=== PATIENT | female | born 1960 | race African-American/Black ===

== ENCOUNTER → 2017-06-30 | Outpatient (CLI) | payer OTHER ==
[2017-04-24 14:35] VITALS: BP 112/66
[~2017-06-30] MED LIST: AMLO10TA4 PO; ASPI325T8 PO; BENZ1LOZ48 MM; CHLO25TA PO; DIPH25CA58 PO; DOCU-109 PO; EZET10TA18 PO; GABA-585 PO; HYDR-2758 PO; LIPITOR80 MG PO; [UNRECOGNIZED DRUG - OTHER] PO
--- NOTE | 2017-06-30 13:12 | RAD ---
DATE: 06/30/2017 EXAM: DIGITAL SCREEN BILAT W/CAD HISTORY: Screening mammogram. 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 COMPARISON: None This study was interpreted with the benefit of Computerized Aided Detection (CAD). FINDINGS: Breast Density: SCATTERED The breast parenchyma shows scattered fibroglandular densities. Breast parenchyma level B. The skin and nipples are within normal limits. No suspicious calcifications,or architectural distortion. There is a round mass in the inner left breast with skin scribe margins measuring approximately 9 mm and approximately 8 cm from nipple best seen on cc view. On MLO view this is likely at 9:00 position. IMPRESSION: . Left breast lesion as described above. This most likely represents intraparenchymal lymph nodes or cyst. However, confirmation with left breast ultrasound is recommended. BI-RADS CATEGORY: 0 INCOMPLETE: NEED ADDITIONAL IMAGING EVAULATION AND/OR PRIOR MAMMOGRAMS FOR COMPARISON RECOMMENDED FOLLOW-UP: ADD ADDITIONAL IMAGING. Ultrasound of the left inner breast. PQRS compliance statement: Mammography is a sensitive method for finding small breast cancers, but it does not detect them all and is not a substitute for careful clinical examination. A negative mammogram does not negate a clinically suspicious finding and should not result in delay in biopsying a clinically suspicious abnormality. "Our facility is accredited by the [employer] Mammography [employer]."
== END | disposition home or self-care (01) ==
LOC: MAMMO 11:21
PROVIDERS: ATTEND Family Medicine
DX: Z12.31 Encounter for screening mammogram for malignant neoplasm of breast (principal)
CPT/HCPCS: G0202; 77067

== ENCOUNTER → 2017-07-06 | Outpatient (CLI) | payer OTHER ==
[2017-04-24 14:35] VITALS: BP 112/66
--- NOTE | 2017-07-06 12:05 | RAD ---
Indication mass seen on screening mammography. Note is made of the screening examination of the left breast 06/30/2017. As result of that examination targeted ultrasound was advised. In the left breast, at the 9:00 position, approximately 8 cm from the nipple is a well-defined 8 mm mass. It probably reflects an intramammary lymph node. Biopsy is not felt warranted at this time. A follow-up left breast mammogram and targeted ultrasound is suggested in 6 months to document stability. IMPRESSION: Probable intramammary lymph node. Follow-up mammography and ultrasound in 6 months advised. BI-RADS 3. Probably benign. Six-month follow-up
== END | disposition home or self-care (01) ==
LOC: US 11:19
PROVIDERS: ATTEND Family Medicine
DX: R92.8 Other abnormal and inconclusive findings on diagnostic imaging of breast (principal)
CPT/HCPCS: 76641

== ENCOUNTER → 2017-12-18 | Outpatient (CLI) | payer OTHER | END | disposition home or self-care (01) | LOC: MAMMO 10:23 | DX: N63.20 Unspecified lump in the left breast, unspecified quadrant (principal) | CPT/HCPCS: 77065 ==

== ENCOUNTER 2017-12-22 10:42 | Emergency (ER) | payer OTHER ==
[2017-12-22] MEDS: HYDROcodone/APAP 5/325MG 1 TAB TABLET PO (11:50)
== END 2017-12-22 13:09 | disposition home or self-care (01) ==
LOC: ER 10:42
DX: M79.671 Pain in right foot (principal); M79.672 Pain in left foot; I10 Essential (primary) hypertension; Z88.0 Allergy status to penicillin; Z86.73 Personal history of transient ischemic attack (TIA), and cerebral infarction without residual deficits
CPT/HCPCS: 73630; 99284

== ENCOUNTER → 2018-10-05 | Outpatient (CLI) | payer OTHER ==
[2017-12-22 12:20] VITALS: BP 149/81
[~2018-10-05] MED LIST changes: -CHLO25TA PO; +CHLO25TA10 PO; -HYDR-2758 PO; +HYDR-2761 PO; +HYDR-3164 PO
--- NOTE | 2018-10-05 10:18 | RAD ---
DATE: 10/05/2018 EXAM: DIGITAL DIAGNOSTIC BILATERAL HISTORY: Follow-up left breast nodule COMPARISON: 12/18/2017, 06/30/2017 This study was interpreted with the benefit of Computerized Aided Detection (CAD). Breast Density: SCATTERED The breast parenchyma shows scattered fibroglandular densities. Breast parenchyma level B. FINDINGS: . The small smooth nodule evident anteromedially in the left breast on the previous studies is less clearly defined on today's exam, but has not enlarged. No new or enlarging breast densities are seen. No suspicious microcalcifications are evident. IMPRESSION: Stable mammograms without evidence of malignancy. Follow-up left mammography in 6 months and bilateral mammography at one year is suggested BI-RADS CATEGORY: 3 PROBABLY BENIGN FINDING(S)-SHORT INTERVAL FOLLOW-UP SUGGESTED RECOMMENDED FOLLOW-UP: 6M 6 MONTH FOLLOW-UP PQRS compliance statement: Patient information was entered into a reminder system with a target due date for the next mammogram. Mammography is a sensitive method for finding small breast cancers, but it does not detect them all and is not a substitute for careful clinical examination. A negative mammogram does not negate a clinically suspicious finding and should not result in delay in biopsying a clinically suspicious abnormality. "Our facility is accredited by the [employer] Mammography [employer]."
== END | disposition home or self-care (01) ==
LOC: MAMMO 09:35
PROVIDERS: ATTEND Family Medicine
DX: N63.42 Unspecified lump in left breast, subareolar (principal)
CPT/HCPCS: 77066

== ENCOUNTER 2021-03-03 10:32 | Inpatient (IN) | payer OTHER ==
[2021-03-03] VITALS (18 sets, daily range): BP systolic 64–114; BP diastolic 38–66
[~2021-03-03] VITALS: Ht 149.9 cm; Wt 62.6 kg
[~2021-03-03 10:32] MED LIST changes: -EZET10TA18 PO; +EZET10TA20 PO
[2021-03-03 10:50] LABS: BASO # 0.1 x10^3/uL (0.0-0.2); BASO % 0 % (0-3); EOS % 0 % (0-3); HEMATOCRIT 23.7 % (36.0-47.0); HEMOGLOBIN 7.7 g/dL (12.0-15.5); LYMPH # 1.7 x10^3/uL (1.0-4.8); LYMPH % 13 % (24-48); MEAN CORPUSCULAR HEMOGLOBIN 28 pg (25-35); MEAN CORPUSCULAR HGB CONC 32 g/dL (31-37); MEAN CORPUSCULAR VOLUME 87 fL (79-100); MONO # 0.4 x10^3/uL (0.0-1.1); MONO % 3 % (0-9); NEUT # 10.7 x10^3/uL (1.8-7.7); NEUT % 83 % (31-73); PLATELET COUNT 547 x10^3/uL (140-400); RED BLOOD COUNT 2.72 x10^6/uL (3.50-5.40); RED CELL DISTRIBUTION WIDTH 16.6 % (11.5-14.5); WHITE BLOOD COUNT 12.9 x10^3/uL (4.0-11.0)
[2021-03-03] MEDS ORDERED: AZTREONAM IV Push 2 GM VIAL. IVP ONE (11:00)
[2021-03-03] MEDS ORDERED: ROCURONIUM 100 MG/10 ML VIAL. IV ONE (11:00)
[2021-03-03] MEDS ORDERED: ETOMIDATE 20 MG/10 ML VIAL. IV ONE (11:00)
[2021-03-03] MEDS ORDERED: IV NORMAL SALINE 1000ML BAG 1,000 ML IV SCH (11:00)
[2021-03-03 11:02] LABS: CALCIUM 8.3 mg/dL (8.5-10.1); CREATININE 4.7 mg/dL (0.6-1.0); GFR 11.4; POTASSIUM 4.9 mmol/L (3.5-5.1)
--- NOTE | 2021-03-03 11:03 | PHYS DOC ---
Past Medical History Past Medical History: CVA, Other Additional Past Medical Histor: CVA'S X 6/NO RESIDUAL PER FAMILY REPORT Past Surgical History: No Surgical History Smoking Status: Former Smoker Alcohol Use: None Drug Use: None General Adult EDM: Chief Complaint: SHORTNESS OF BREATH HPI: HPI: 61 yo F presents to the ed bibems from [facility] [place], [place] with concern for shortness of breath, per EMS report patient was hypoxic saturating 70%. Patient placed on BiPAP and transferred to the ED. Hx was obtained from correction documents that showed patient has history of CVA (unknown baseline mental functioning status), hypertension, hyperlipidemia, neuromuscular dysfunction of bladder with indwelling Uriostegui catheter, obesity and nicotine dependence. Patient is a full code. Patient no known drug allergies. Patient on Plavix but no other anticoagulants. Unknown covid status. Review of Systems: Review of Systems: ROS unobtainable 2/2 mental status Heart Score: C/O Chest Pain: N/A Risk Factors: Risk Factors: DM, Current or recent (<one month) smoker, HTN, HLP, family history of CAD, obesity. Risk Scores: Score 0 - 3: 2.5% MACE over next 6 weeks - Discharge Home Score 4 - 6: 20.3% MACE over next 6 weeks - Admit for Clinical Observation Score 7 - 10: 72.7% MACE over next 6 weeks - Early Invasive Strategies Current Medications: Current Medications Medications (Trade) Dose Ordered Sig/Trevin Start Time Stop Time Status Last Admin Dose Admin Aztreonam (Azactam) 2 gm 1X ONCE 03/03/21 11:00 03/03/21 11:01 Etomidate (Amidate) 20 mg 1X ONCE 03/03/21 11:00 03/03/21 11:01 Metronidazole 100 ml @ 100 mls/hr 1X ONCE 03/03/21 11:00 03/03/21 11:59 Rocuronium Stacy (Zemuron) 100 mg 1X ONCE 03/03/21 11:00 03/03/21 11:01 Sodium Chloride 1,000 ml @ 1,000 mls/hr Q1H 03/03/21 11:00 03/03/21 11:59 Vancomycin HCl (Vanco Per Pharmacy) 1 each PRN DAILY PRN 03/03/21 10:45 Allergies: Allergies: Allergies Coded Allergies Type Severity Reaction Last Updated Verified Penicillins Allergy Intermediate RASH 03/03/21 Yes Physical Exam: PE: Constitutional: unkept appearance, afebrile HENT: Normocephalic, atraumatic, dry mucous membranes Eyes: EOMI, conjunctiva normal, no discharge. Neck: Normal range of motion, supple, Cardiovascular: S1/2 present, regular rhythm Lungs & Thorax: bilateral equal chest rise, no tachypnea or increased work of breathing Abdomen: soft, no tenderness, Skin: Warm, dry, no erythema, no rash. [] Extremities: No tenderness, no cyanosis, suspect UE contractures Neurologic: E 4 M 1 V 2 = GCS 7, no focal deficits noted-no appreciable facial droop, does not follow commands Current Patient Data: Labs: Laboratory Tests Test 03/03/21 10:40 White Blood Count 12.9 x10^3/uL (4.0-11.0) H Red Blood Count 2.72 x10^6/uL (3.50-5.40) L Hemoglobin 7.7 g/dL (12.0-15.5) L Hematocrit 23.7 % (36.0-47.0) L Mean Corpuscular Volume 87 fL (79-100) Mean Corpuscular Hemoglobin 28 pg (25-35) Mean Corpuscular Hemoglobin Concent 32 g/dL (31-37) Red Cell Distribution Width 16.6 % (11.5-14.5) H Platelet Count 547 x10^3/uL (140-400) H Neutrophils (%) (Auto) 83 % (31-73) H Lymphocytes (%) (Auto) 13 % (24-48) L Monocytes (%) (Auto) 3 % (0-9) Eosinophils (%) (Auto) 0 % (0-3) Basophils (%) (Auto) 0 % (0-3) Neutrophils # (Auto) 10.7 x10^3/uL (1.8-7.7) H Lymphocytes # (Auto) 1.7 x10^3/uL (1.0-4.8) Monocytes # (Auto) 0.4 x10^3/uL (0.0-1.1) Eosinophils # (Auto) 0.0 x10^3/uL (0.0-0.7) Basophils # (Auto) 0.1 x10^3/uL (0.0-0.2) Laboratory Tests 03/03/21 10:40 EKG: EKG: Sinus tachycardia 120 bpm, no axis deviation, QTC 471, no ST elevations, ST segment depressions V3 through V6 Radiology/Procedures: Radiology/Procedures: Indication: Respiratory failure Consent: Unable to give consent due to emergent nature. Medications Used: see nursing note Procedure: The patient was placed in the appropriate position. Intubation was performed via video laryngoscopy with glide scope, MAC 4 blade, 7 5 endotracheal tube. ET tube secured with RT device. Initial confirmation of placement included adequate colorimetry, bilateral breath sounds, tube fogging, adequate c hest rise, adequate pulse oximetry reading. A chest x-ray to verify correct placement of the tube showed appropriate tube position. The patient tolerated the procedure well. Complications: none. IMAGING REPORT Signed PATIENT: ARANZA TERESA ACCOUNT: [id number] : 1960 LOCATION: ER AGE: 61 SEX: F EXAM STATUS: REG ER ORD. PHYSICIAN: AISHA LERNER DO REASON: soa, POST INTUBATION PROCEDURE: CHEST AP ONLY EXAM: Chest, single view. HISTORY: Intubation. COMPARISON: None. FINDINGS: A frontal view of the chest obtained. There is an endotracheal tube within the mid trachea. There is a nasogastric tube within the proximal stomach with the side-port at the gastroesophageal junction or within the distal esophagus. There is a right PICC with the tip in the superior cavoatrial junction. There is suspected right lower lobe predominant interstitial infiltrate. No pleural effusion or pneumothorax is seen. The heart is normal in size. IMPRESSION: 1. Endotracheal tube and right PICC in expected position. There is a nasogastric tube within the proximal stomach with the side-port at the gastroesophageal junction or within the distal esophagus. Slight nasogastric tube advancement may be indicated. 2. Suspected right lower lobe predominant interstitial infiltrate. Electronically signed by: Eugenia Oquendo MD (03/03/2021 11:30 AM) [facility] DICTATED and SIGNED BY: EUGENIA OQUENDO MD DATE: 03/03/21 [id number] IMAGING REPORT Signed PATIENT: ARANZA TERESA ACCOUNT: [id number] : 1960 LOCATION: [address] [place] [address] AGE: 61 SEX: F EXAM STATUS: ADM IN ORD. PHYSICIAN: AISHA LERNER DO REASON: ams, gcs 13 per ems? PROCEDURE: CT HEAD WO CONTRAST EXAM: Head CT without contrast. HISTORY: Altered mental status. TECHNIQUE: Computed tomographic images of the head were obtained without contrast. *One or more of the following individualized dose reduction techniques were utilized for this examination: 1. Automated exposure control. 2. Adjustment of the mA and/or kV according to patient size. 3. Use of iterative reconstruction technique. COMPARISON: 04/16/2017. FINDINGS: There is no acute or subacute extra-axial or intraparenchymal hemorrhage. There is no mass effect or midline shift. There is no hydrocephalus. There are extensive areas of hypodensity throughout the cerebral white matter, most commonly due to chronic small vessel disease. This is advanced for patient age. There are multiple chronic appearing lacunar infarcts within the left gr eater than right basal ganglia and lateral thalami. There is cerebral volume loss. The visualized portions of the orbits, paranasal sinuses and mastoid air cells are unremarkable. No suspicious calvarial lesion is seen. IMPRESSION: 1. Extensive white matter changes, most commonly due to chronic small vessel disease. This is advanced for patient age. There is also cerebral volume loss which is advanced for patient age. 2. Chronic infarcts within the bilateral basal ganglia and thalami. 3. Note is made that MRI is more sensitive for acute infarction. Electronically signed by: Eugenia Oquendo MD (03/03/2021 1:02 PM) [facility] DICTATED and SIGNED BY: EUGENIA OQUENDO MD DATE: 03/03/21 [id number] 0 Course & Med Decision Making: Course & Med Decision Making Pertinent Labs and Imaging studies reviewed. (See chart for details) COVID-19 CRITERIA: The patient was evaluated during the global COVID-19 zahida suzy, and that diagnosis was suspected/considered upon their initial presentation. Their evaluation, treatment and testing was consistent with current guidelines for patients who present with complaints or symptoms that may be related to COVID-19. Concern for acute hypoxic respiratory failure, Covid test pending. Patient with sepsis 2/2 pnuemonia w/multiple organ failure including transaminitis, acute kidney injury and NSTEMI. Patient also with normocytic anemia compared to 2017. Patient was intubated upon ED arrival-unknown baseline mental status. Will admit to ICU with cardiology, pulmonology and nephrology consults. Patient accepted by Dr. Wallace. Critical Care: Authorized and Performed by: Aisha Lerner DO Total critical care time: approximately 60 minutes Due to a high probability of clinically significant, life threatening deterioration, the patient required my highest level of preparedness to intervene emergently and I personally spent this critical care time directly and personally managing the patient. This critical care time included obtaining a history; examining the patient; pulse oximetry; ventilator management if necessary; ordering and review of studies; arranging urgent treatment with development of a management plan; evaluation of patient's response to treatment; frequent reassessment; discussion with patient/family; and, discussions with ot her providers. This critical care time was performed to assess and manage the high probability of imminent, life-threatening deterioration that could result in multi-organ failure. It was exclusive of separately billable procedures and treating other patients and teaching time. Please see MDM section and the rest of the note for further information on patient assessment and treatment. Dragon Disclaimer: Dragon Disclaimer: This electronic medical record was generated, in whole or in part, using a voice recognition dictation system. Departure Departure Impression: Primary Impression: Acute respiratory failure with hypoxia Additional Impressions: Person under investigation for COVID-19 Multiorgan failure Rhabdomyolysis Sepsis Pneumonia Disposition: ADMITTED INPATIENT Admitting Physician: JENS (Dr. Wallace) Condition: CRITICAL Referrals: GARCIA PARISH MD (PCP) AISHA LERNER DO Mar 03, 2021 11:03
[2021-03-03 11:07] LABS: ACETAMIN < 2 mcg/ml (10-30); SALIC < 2.8 mg/dL (2.8-20.0)
[2021-03-03 11:19] LABS: BASE EXCESS COOX -11 mmol/L (-3-3); HCO3 COOX 15 mmol/L (21-28); METHEMOGLOBIN 0.9 % (0.0-1.9); OXYHEMOGLOBIN 98.3 %; PCO2 COOX 33 mmHg (35-46); PO2 COOX 249 mmHg (65-108); SAT O2 COOX 100 % (92-99)
[2021-03-03 11:20] LABS: ALBUMIN 1.6 g/dL (3.4-5.0); DIRECT BILIRUBIN 0.4 mg/dL (0.0-0.2); TOTAL BILIRUBIN 0.7 mg/dL (0.2-1.0); TOTAL PROTEIN 6.4 g/dL (6.4-8.2)
[2021-03-03] MEDS ORDERED: IV NORMAL SALINE 1000ML BAG 1,000 ML IV ONE ×2 (11:30)
--- NOTE | 2021-03-03 11:33 | RAD ---
EXAM: Chest, single view. HISTORY: Intubation. COMPARISON: None. FINDINGS: A frontal view of the chest obtained. There is an endotracheal tube within the mid trachea. There is a nasogastric tube within the proximal stomach with the side-port at the gastroesophageal j unction or within the distal esophagus. There is a right PICC with the tip in the superior cavoatrial junction. There is suspected right lower lobe predominant interstitial infiltrate. No pleural effusi on or pneumothorax is seen. The heart is normal in size. IMPRESSION: 1. Endotracheal tube and right PICC in expected position. There is a nasogastric tube within the prox imal stomach with the side-port at the gastroesophageal junction or within the distal esophagus. Slig ht nasogastric tube advancement may be indicated. 2. Suspected right lower lobe predominant interstitial infiltrate. Electronically signed by: Eugenia Webster MD (03/03/2021 11:30 AM) [facility]
--- NOTE | 2021-03-03 11:45 | PDOC1 ---
History and Physical Date of Admission Date of Admission DATE: 03/03/21 TIME: 11:45 Identification/Chief Complaint Chief Complaint soa, pneumonia, cough, confused History of Present Illness History of Present Illness 61 -year-old -[place] woman with past medical history of hypertension, CVA and right-sided weakness, who presented to the Emergency Room HX Cerebrovascular accident with residual spastic right hemiparesis required vent support in ER, unable to maintain airway , labs c/w multiorgan failure, sepsis Suspected right lower lobe predominant interstitial infiltrate. suspect aspiration pneumonia, gram neg, gram pos //under investigation for COVID-19 Multiorgan failure due to sepsis Rhabdomyolysis LATHA, due to sepsis Altered mental status , UNABLE to maintain airway // right hemiparesis // prob pyelonephritis with acute renal tube nephro-necrosis ct head Extensive white matter changes, chronic small vessel disease.advanced for patient age. cerebral volume loss advanced for patient age. Chronic infarcts within the bilateral basal ganglia and thalami. Suspected right lower lobe predominant interstitial infiltrate. suspect aspiration pneumonia, gram neg, gram pos // Person under investigation for COVID-19 plan== icu bed //pulm consult / vent support/ Nephrology consult //ID CONSULT /emperic iv antibiotics / FE PANEL //Neurology consult // DVT PROPHYLAXIS Past Medical History Past Medical History Past Medical History Past Medical History: CVA, Other Additional Past Medical Histor: CVA'S X 6/NO RESIDUAL PER FAMILY REPORT Past Surgical History: No Surgical History Smoking Status: Former Smoker Alcohol Use: None Drug Use: None FHX OBESITY Cardiovascular: HTN, Hyperlipidemia CENTRAL NERVOUS SYSTEM: CVA Psych: Other Musculoskeletal: Osteoarthritis Endocrine: No pertinent hx Past Surgical History Past Surgical History: No pertinent history Family History Family History: Heart Disease, High Cholestrol, Hypertension Social History Smoke: No ALCOHOL: none Drugs: Cocaine Current Problem List Problem List Problems Medical Problems: (1) Acute respiratory failure with hypoxia Status: Acute (2) Multiorgan failure Status: Acute (3) Person under investigation for COVID-19 Status: Acute (4) Rhabdomyolysis Status: Acute Current Medications Current Medications Current Medications Sodium Chloride 1,000 ml @ 1,000 mls/hr Q1H IV ; Start 03/03/21 at 11:00; Stop 03/03/21 at 11:59 Aztreonam (Azactam) 2 gm 1X ONCE IVP ; Start 03/03/21 at 11:00; Stop 03/03/21 at 11:01; Status DC Metronidazole 100 ml @ 100 mls/hr 1X ONCE IV ; Start 03/03/21 at 11:00; Stop 03/03/21 at 11:59 Vancomycin HCl (Vanco Per Pharmacy) 1 each PRN DAILY PRN MC SEE COMMENTS; Start 03/03/21 at 10:45 Etomidate (Amidate) 20 mg 1X ONCE IV ; Start 03/03/21 at 11:00; Stop 03/03/21 at 11:01; Status DC Rocuronium [place] (Zemuron) 100 mg 1X ONCE IV ; Start 03/03/21 at 11:00; Stop 03/03/21 at 11:01; Status DC Sodium Chloride 1,000 ml @ 1,000 mls/hr 1X ONCE IV ; Start 03/03/21 at 11:30; Stop 03/03/21 at 12:29 Sodium Chloride 1,000 ml @ 1,000 mls/hr 1X ONCE IV ; Start 03/03/21 at 11:30; Stop 03/03/21 at 12:29 Active Scripts Active [place] 5-325 Tablet (Acetaminophen/Hydrocodone Bitart) 1 Each Tablet 1 Tab PO BID 5 Days Hydrocodone-Apap 5-325 (Hydrocodone Bit/Acetaminophen) 1 Each Tablet 1 Tab PO PRN Q6HRS PRN Reported [Prinivil,Zestril] 40 Mg PO DAILY Gabapentin 100 Mg Capsule 100 Mg PO Q8HRS Zetia (Ezetimibe) 10 Mg Tablet 1 Tab PO DAILY Colace (Docusate Sodium) 100 Mg Capsule 1 Cap PO BID Benadryl (Diphenhydramine Hcl) 25 Mg Capsule 25 Mg PO Q6HRS PRN Chlorthalidone 25 Mg Tablet 1 Tab PO DAILY Cepacol Sore Throat Lozenge (Benzocaine/Menthol) 1 Each Lozenge 1 Each MM TID PRN Lipitor (Atorvastatin Calcium) 80 Mg Tablet 1 Tab PO DAILY Aspirin 325 Mg Tablet 1 Tab PO DAILY Norvasc (Amlodipine Besylate) 10 Mg Tablet 10 Mg PO DAILY Allergies Allergies: Coded Allergies: Penicillins (Verified Allergy, Intermediate, RASH, 03/03/21) ROS Review of System INTUBATED ON SEDATION General: YES: Fatigue Physical Exam Physical Exam right hand contracted General: Cooperative HEENT: Atraumatic, Mucous membr. moist/pink Lungs: Clear to auscultation Heart: RRR, no thrills Breasts: Not examined Abdomen: Normal bowel sounds, Soft, No tenderness, No hepatosplenomegaly Rectal Exam: not examined PELVIC: Examination not indicated Extremities: No cyanosis Vitals Vitals Vital Signs Date Time Temp Pulse Resp B/P (MAP) Pulse Ox O2 Delivery O2 Flow Rate FiO2 03/03/21 11:18 Ventilator Labs Labs Laboratory Tests Test 03/03/21 10:40 03/03/21 11:10 White Blood Count 12.9 x10^3/uL (4.0-11.0) Red Blood Count 2.72 x10^6/uL (3.50-5.40) Hemoglobin 7.7 g/dL (12.0-15.5) Hematocrit 23.7 % (36.0-47.0) Mean Corpuscular Volume 87 fL (79-100) Mean Corpuscular Hemoglobin 28 pg (25-35) Mean Corpuscular Hemoglobin Concent 32 g/dL (31-37) Red Cell Distribution Width 16.6 % (11.5-14.5) Platelet Count 547 x10^3/uL (140-400) Neutrophils (%) (Auto) 83 % (31-73) Lymphocytes (%) (Auto) 13 % (24-48) Monocytes (%) (Auto) 3 % (0-9) Eosinophils (%) (Auto) 0 % (0-3) Basophils (%) (Auto) 0 % (0-3) Neutrophils # (Auto) 10.7 x10^3/uL (1.8-7.7) Lymphocytes # (Auto) 1.7 x10^3/uL (1.0-4.8) Monocytes # (Auto) 0.4 x10^3/uL (0.0-1.1) Eosinophils # (Auto) 0.0 x10^3/uL (0.0-0.7) Basophils # (Auto) 0.1 x10^3/uL (0.0-0.2) Sodium Level 135 mmol/L (136-145) Potassium Level 4.9 mmol/L (3.5-5.1) Chloride Level 95 mmol/L (98-107) Carbon Dioxide Level 16 mmol/L (21-32) Anion Gap 24 (6-14) Blood Urea Nitrogen 116 mg/dL (7-20) Creatinine 4.7 mg/dL (0.6-1.0) Estimated GFR (Cockcroft-Gault) 11.4 Glucose Level 271 mg/dL (70-99) Lactic Acid Level 3.9 mmol/L (0.4-2.0) Calcium Level 8.3 mg/dL (8.5-10.1) Total Bilirubin 0.7 mg/dL (0.2-1.0) Direct Bilirubin 0.4 mg/dL (0.0-0.2) Aspartate Amino Transf (AST/SGOT) 204 U/L (15-37) Alanine Aminotransferase (ALT/SGPT) 159 U/L (14-59) Alkaline Phosphatase 99 U/L (46-116) Creatine Kinase 3340 U/L (26-192) Troponin I Quantitative 0.081 ng/mL (0.000-0.055) CM-Tem-Z-Type Natriuretic Peptide 587 pg/mL (0-124) Total Protein 6.4 g/dL (6.4-8.2) Albumin 1.6 g/dL (3.4-5.0) Salicylates Level < 2.8 mg/dL (2.8-20.0) Salicylate Last Dose Date Unknown Salicylate Last Dose Time Unknown Acetaminophen Level < 2 mcg/ml (10-30) Acetaminophen Last Dose Date Unknown Acetaminophen Last Dose Time Unknown O2 Saturation 100 % (92-99) Arterial Blood pH 7.27 (7.35-7.45) Arterial Blood pCO2 at Patient Temp 33 mmHg (35-46) Arterial Blood pO2 at Patient Temp 249 mmHg (65-108) Arterial Blood HCO3 15 mmol/L (21-28) Arterial Blood Base Excess -11 mmol/L (-3-3) Oxyhemoglobin 98.3 % Methemoglobin 0.9 % (0.0-1.9) Carbon Monoxide, Quantitative 0.3 % (0.0-1.9) FiO2 100 Laboratory Tests Test 03/03/21 10:40 03/03/21 11:10 White Blood Count 12.9 x10^3/uL (4.0-11.0) Red Blood Count 2.72 x10^6/uL (3.50-5.40) Hemoglobin 7.7 g/dL (12.0-15.5) Hematocrit 23.7 % (36.0-47.0) Mean Corpuscular Volume 87 fL (79-100) Mean Corpuscular Hemoglobin 28 pg (25-35) Mean Corpuscular Hemoglobin Concent 32 g/dL (31-37) Red Cell Distribution Width 16.6 % (11.5-14.5) Platelet Count 547 x10^3/uL (140-400) Neutrophils (%) (Auto) 83 % (31-73) Lymphocytes (%) (Auto) 13 % (24-48) Monocytes (%) (Auto) 3 % (0-9) Eosinophils (%) (Auto) 0 % (0-3) Basophils (%) (Auto) 0 % (0-3) Neutrophils # (Auto) 10.7 x10^3/uL (1.8-7.7) Lymphocytes # (Auto) 1.7 x10^3/uL (1.0-4.8) Monocytes # (Auto) 0.4 x10^3/uL (0.0-1.1) Eosinophils # (Auto) 0.0 x10^3/uL (0.0-0.7) Basophils # (Auto) 0.1 x10^3/uL (0.0-0.2) Sodium Level 135 mmol/L (136-145) Potassium Level 4.9 mmol/L (3.5-5.1) Chloride Level 95 mmol/L (98-107) Carbon Dioxide Level 16 mmol/L (21-32) Anion Gap 24 (6-14) Blood Urea Nitrogen 116 mg/dL (7-20) Creatinine 4.7 mg/dL (0.6-1.0) Estimated GFR (Cockcroft-Gault) 11.4 Glucose Level 271 mg/dL (70-99) Lactic Acid Level 3.9 mmol/L (0.4-2.0) Calcium Level 8.3 mg/dL (8.5-10.1) Total Bilirubin 0.7 mg/dL (0.2-1.0) Direct Bilirubin 0.4 mg/dL (0.0-0.2) Aspartate Amino Transf (AST/SGOT) 204 U/L (15-37) Alanine Aminotransferase (ALT/SGPT) 159 U/L (14-59) Alkaline Phosphatase 99 U/L (46-116) Creatine Kinase 3340 U/L (26-192) Troponin I Quantitative 0.081 ng/mL (0.000-0.055) DC-Sim-I-Type Natriuretic Peptide 587 pg/mL (0-124) Total Protein 6.4 g/dL (6.4-8.2) Albumin 1.6 g/dL (3.4-5.0) Salicylates Level < 2.8 mg/dL (2.8-20.0) Salicylate Last Dose Date Unknown Salicylate Last Dose Time Unknown Acetaminophen Level < 2 mcg/ml (10-30) Acetaminophen Last Dose Date Unknown Acetaminophen Last Dose Time Unknown O2 Saturation 100 % (92-99) Arterial Blood pH 7.27 (7.35-7.45) Arterial Blood pCO2 at Patient Temp 33 mmHg (35-46) Arterial Blood pO2 at Patient Temp 249 mmHg (65-108) Arterial Blood HCO3 15 mmol/L (21-28) Arterial Blood Base Excess -11 mmol/L (-3-3) Oxyhemoglobin 98.3 % Methemoglobin 0.9 % (0.0-1.9) Carbon Monoxide, Quantitative 0.3 % (0.0-1.9) FiO2 100 Images Images EXAM: Head CT without contrast. HISTORY: Altered mental status. TECHNIQUE: Computed tomographic images of the head were obtained without contrast. *One or more of the following individualized dose reduction techniques were utilized for this examination: 1. Automated exposure control. 2. Adjustment of the mA and/or kV according to patient size. 3. Use of iterative reconstruction technique. COMPARISON: 04/16/2017. FINDINGS: There is no acute or subacute extra-axial or intraparenchymal hemorrhage. There is no mass effect or midline shift. There is no hydrocephalus. There are extensive areas of hypodensity throughout the cerebral white matter, most commonly due to chronic small vessel disease. This is advanced for patient age. There are multiple chronic appearing lacunar infarcts within the left greater than right basal ganglia and lateral thalami. There is cerebral volume loss. The visualized portions of the orbits, paranasal sinuses and mastoid air cells are unremarkable. No suspicious calvarial lesion is seen. IMPRESSION: 1. Extensive white matter changes, most commonly due to chronic small vessel disease. This is advanced for patient age. There is also cerebral volume loss which is advanced for patient age. 2. Chronic infarcts within the bilateral basal ganglia and thalami. 3. Note is made that MRI is more sensitive for acute infarction. Electronically signed by: Eugenia Oquendo MD (03/03/2021 1:02 PM) [facility] DICTATED and SIGNED BY: EUGENIA OQUENDO MD DATE: 03/03/21 [id number] 0Signed PATIENT: ARANZA TERESA ACCOUNT: [id number] : 1960 LOCATION: ER AGE: 61 SEX: F EXAM STATUS: REG ER ORD. PHYSICIAN: NIA LERNER DO REASON: soa, POST INTUBATION PROCEDURE: CHEST AP ONLY EXAM: Chest, single view. HISTORY: Intubation. COMPARISON: None. FINDINGS: A frontal view of the chest obtained. There is an endotracheal tube within the mid trachea. There is a nasogastric tube within the proximal stomach with the side-port at the gastroesophageal junction or within the distal esophagus. There is a right PICC with the tip in the superior cavoatrial juncti on. There is suspected right lower lobe predominant interstitial infiltrate. No pleural effusion or pneumothorax is seen. The heart is normal in size. IMPRESSION: 1. Endotracheal tube and right PICC in expected position. There is a nasogastric tube within the proximal stomach with the side-port at the gastroesophageal junction or within the distal esophagus. Slight nasogastric tube advancement may be indicated. 2. Suspected right lower lobe predominant interstitial infiltrate. Electronically signed by: Eugenia Oquendo MD (03/03/2021 11:30 AM) [facility] DICTATED and SIGNED BY: EUGENIA OQUENDO MD DATE: 03/03/21 [id number] VTE Prophylaxis Ordered VTE Prophylaxis Devices: Contraindicated VTE Pharmacological Prophylaxi: Yes Assessment/Plan Assessment/Plan Impression: Acute respiratory failure with hypoxia requiring vent support Suspected right lower lobe predominant interstitial infiltrate. suspect aspiration pneumonia, gram neg, gram pos Person under investigation for COVID-19 Multiorgan failure Rhabdomyolysis CPK 3340 LATHA prob pyelonephritis with acute renal tube nephro-necrosis Altered mental status Extensive white matter changes, most commonly due to chronic small vessel disease. This is advanced for patient age. There is also cerebral volume loss which is advanced for patient age.Chronic infarcts within the bilateral basal ganglia and thalami. LACTIC ACIDOSIS SEPSIS prob pyelonephritis with acute renal tube nephro-necrosis / ATN NORMOCYTIC ANEMIA marked change since 2016 plan ADMITTED icu bed pulm consult vent support Nephrology consult ID CONSULT emperic iv antibiotics FE PANEL Neurology consult DVT PROPHYLAXIS GI prophylaxis GI CONSULT guiac stools critically ill, poor prognosis 45 min cc time Justifications for Admission Other Justification AVILA FERRIS MD Mar 03, 2021 11:45
[2021-03-03] MEDS ORDERED: PROPOFOL 100 ML IV PRN (12:00)
[2021-03-03] MEDS ORDERED: MIDAZOLAM 100mg/100ml NS BAG 100 ML IV PRN (12:00)
[2021-03-03] MEDS ORDERED: VANCOMYCIN 1.75 GM in IV NORMAL SALINE 500ML BAG 500 ML IV ONE (12:30)
--- NOTE | 2021-03-03 13:04 | RAD ---
EXAM: Head CT without contrast. HISTORY: Altered mental status. TECHNIQUE: Computed tomographic images of the head were obtained without contrast. *One or more of the following individualized dose reduction techniques were utilized for this examina tion: 1. Automated exposure control. 2. Adjustment of the mA and/or kV according to patient size. 3. Use of iterative reconstruction technique. COMPARISON: 04/16/2017. FINDINGS: There is no acute or subacute extra-axial or intraparenchymal hemorrhage. There is no mass effect or midline shift. There is no hydrocephalus. There are extensive areas of hypodensity throughout the cerebral white matter, most commonly due to c hronic small vessel disease. This is advanced for patient age. There are multiple chronic appearing l acunar infarcts within the left greater than right basal ganglia and lateral thalami. There is cerebr al volume loss. The visualized portions of the orbits, paranasal sinuses and mastoid air cells are unremarkable. No s uspicious calvarial lesion is seen. IMPRESSION: 1. Extensive white matter changes, most commonly due to chronic small vessel disease. This is advance d for patient age. There is also cerebral volume loss which is advanced for patient age. 2. Chronic infarcts within the bilateral basal ganglia and thalami. 3. Note is made that MRI is more sensitive for acute infarction. Electronically signed by: Eugenia Webster MD (03/03/2021 1:02 PM) [facility]
[2021-03-03] MEDS ORDERED: ROCURONIUM 50 MG/5 ML VIAL. ONE (13:26)
[2021-03-03 13:42] LABS: BILIRUBIN,URINE NEGATIVE (NEG); CLARITY,URINE TURBID; COLOR,URINE YELLOW; NITRITE,URINE NEGATIVE (NEG); PROTEIN,URINE 30 mg/dL (NEG-TRACE); UROBILINOGEN,URINE 0.2 mg/dL (0.2 mg/dL)
[2021-03-03] MEDS ORDERED: HYOS0.12 PO (13:51)
[2021-03-03 13:53] LABS: AMORPHOUS SEDIMENT,UR PRESENT /HPF; BACTERIA,URINE MANY /HPF (0-FEW); RBC,URINE >40 /HPF (0-2); WBC,URINE TNTC /HPF (0-4)
[2021-03-03 13:55] LABS: HYALINE CASTS, URINE MANY /HPF
[2021-03-03] MEDS ORDERED: ASPI-630 PO (14:13)
[2021-03-03] MEDS ORDERED: BACL10TA PO (14:13)
[2021-03-03] MEDS ORDERED: OMEP20CA16 PO (14:13)
[2021-03-03] MEDS ORDERED: ITRA100C PO (14:13)
[2021-03-03] MEDS ORDERED: CLOP75TA PO (14:13)
[2021-03-03] MEDS ORDERED: POLY17PO29 PO (14:13)
[2021-03-03] MEDS ORDERED: LISI-130 PO (14:13)
[2021-03-03] MEDS ORDERED: GENT30OI2 TP (14:13)
[2021-03-03] MEDS ORDERED: FERR325T14 PO (14:13)
[2021-03-03] MEDS ORDERED: GABA300C18 PO (14:13)
[2021-03-03] MEDS ORDERED: ONDANSETRON PF 4 MG/2 ML VIAL. IVP PRN (14:30)
[2021-03-03] MEDS ORDERED: 0.9 % SODIUM CHLORIDE 10 ML DISP.SYRIN. IV PRN (14:30)
[2021-03-03] MEDS ORDERED: BISACODYL 10 MG SUPP.RECT. PR PRN (14:30)
--- NOTE | 2021-03-03 14:37 | PDOC2 ---
NEUROLOGY CONSULT Date of Service DOS: DATE: 03/03/21 TIME: 14:29 Reason for Consult Reason for Consult: Altered mental status Referring Physician Referring Physician: Dr. 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 I last saw her 4 years ago at which time we ruled her out for a new stroke. She has been in the snf for the last several years. She presented to the emergency room unable to maintain airway. Labs are consistent with multiorgan failure and sepsis and she is found to have a right lower lobe infiltrate. No one has mentioned any seizure activity. She is a full code. She is on tube feedings Past Medical History Cardiovascular: HTN, Hyperlipidemia CENTRAL NERVOUS SYSTEM: CVA Renal/: Urinary Incontinence Past Surgical History Past Surgical History: Other (PEG) Family History Family History: No pertinent hx Social History Social History [facility] resident Current Medications Current Medications Current Medications Sodium Chloride 1,000 ml @ 1,000 mls/hr Q1H IV Last administered on 03/03/21at 12:17; Start 03/03/21 at 11:00; Stop 03/03/21 at 11:59; Status DC Aztreonam (Azactam) 2 gm 1X ONCE IVP Last administered on 03/03/21at 12:17; Start 03/03/21 at 11:00; Stop 03/03/21 at 11:01; Status DC Metronidazole 100 ml @ 100 mls/hr 1X ONCE IV Last administered on 03/03/21at 12:17; Start 03/03/21 at 11:00; Stop 03/03/21 at 11:59; Status DC Vancomycin HCl (Vanco Per Pharmacy) 1 each PRN DAILY PRN MC SEE COMMENTS; Start 03/03/21 at 10:45 Etomidate (Amidate) 20 mg 1X ONCE IV ; Start 03/03/21 at 11:00; Stop 03/03/21 at 11:01; Status DC Rocuronium [place] (Zemuron) 100 mg 1X ONCE IV ; Start 03/03/21 at 11:00; Stop 03/03/21 at 11:01; Status DC Sodium Chloride 1,000 ml @ 1,000 mls/hr 1X ONCE IV ; Start 03/03/21 at 11:30; Stop 03/03/21 at 12:29; Status DC Sodium Chloride 1,000 ml @ 1,000 mls/hr 1X ONCE IV Last administered on 03/03/21at 13:00; Start 03/03/21 at 11:30; Stop 03/03/21 at 12:29; Status DC Vancomycin HCl 1.75 gm/Sodium Chloride 500 ml @ 250 mls/hr 1X ONCE IV Last administered on 03/03/21at 13:41; Start 03/03/21 at 12:30; Stop 03/03/21 at 14:29; Status DC Aztreonam (Azactam) 1 gm Q8HRS IVP ; Start 03/03/21 at 22:00 Rocuronium [place] (Zemuron) 50 mg STK-MED ONCE .ROUTE ; Start 03/03/21 at 13:26; Stop 03/03/21 at 13:26; Status DC Fentanyl Citrate 30 ml @ 0 mls/hr CONT PRN IV SEE PROTOCOL Last administered on 03/03/21at 13:49; Start 03/03/21 at 12:00 Propofol 100 ml @ 0 mls/hr CONT PRN IV PER PROTOCOL; Start 03/03/21 at 12:00 Midazolam HCl 100 ml @ 0 mls/hr CONT PRN IV SEE PROTOCOL Last administered on 03/03/21at 13:49; Start 03/03/21 at 12:00 Ondansetron HCl (Zofran) 4 mg PRN Q6HRS PRN IVP NAUSEA/VOMITING; Start 03/03/21 at 14:30; Status UNV Famotidine (Pepcid Vial) 20 mg BID IVP ; Start 03/03/21 at 21:00; Status UNV Heparin Sodium (Porcine) (Heparin Sodium) 5,000 unit Q8HRS SQ ; Start 03/03/21 at 22:00; Status UNV Sodium Chloride (Normal Saline Flush) 3 ml QSHIFT PRN IV AFTER MEDS AND BLOOD DRAWS; Start 03/03/21 at 14:30; Status UNV Sodium Chloride 1,000 ml @ 80 mls/hr [id number] IV ; Start 03/03/21 at 14:30; Status UNV Bisacodyl (Dulcolax Supp) 10 mg PRN DAILY PRN NE CONSTIPATION; Start 03/03/21 at 14:30; Status UNV Active Scripts Active Reported Clopidogrel (Clopidogrel Bisulfate) 75 Mg Tablet 1 Tab PO DAILY Omeprazole 20 Mg Capsule.dr 1 Cap PO DAILY Miralax (Polyethylene Glycol 3350) 17 Gm Powd.pack 1 Packet PO DAILY 2 Days dissolve in water Lisinopril 40 Mg Tablet 1 Tab PO DAILY Itraconazole 100 Mg Capsule 200 Mg PO DAILY 7 Days Gentamicin Sulfate 30 Gm Oint...g. 1 [place] TP BID apply to affected area(s) Gabapentin 300 Mg Capsule 300 Mg PO TID Ferrous Sulfate 325 Mg Tablet 1 Tab PO DAILY Baclofen 10 Mg Tablet 1 Tab PO TID Aspirin 81 Mg Tab.chew 1 Tab PO DAILY Anaspaz (Hyoscyamine Sulfate) 0.125 Mg Tab.rapdis 0.125 Mg PO Q4HRS W/A Cepacol Sore Throat Lozenge (Benzocaine/Menthol) 1 Each Lozenge 1 Each MM TID PRN Lipitor (Atorvastatin Calcium) 80 Mg Tablet 1 Tab PO DAILY Norvasc (Amlodipine Besylate) 10 Mg Tablet 10 Mg PO DAILY Allergies Allergies: Coded Allergies: Penicillins (Verified Allergy, Intermediate, RASH, 03/03/21) ROS Review of System Negative for fever, chills, weight loss, shortness of breath, chest pain, indigestion, hematochezia, melena, and dysuria. Full 14-point review of systems is negative. Physical Exam Physical Examination General: Well-developed, well-nourished black female in no acute distress HEENT: Normocephalic andatraumatic. Tympanic membranes clear.Temporal arteriespulsatile and nontender.Fundoscopic exam unremarkable Neck: Supple without bruit, no meningismus Musculoskeletal: Stability:see neurologic. Gait exam:see neurologic. Tone:see neurologic.Strength:see neurologic. Neurological: Mental Status:orientation, memory, attention span/concentration, language, fund of knowledge: Intubated, she is off midazolam but is on fentanyl, unresponsive. Cranial Nerves:Pupils large, minimally reactive to light. There is no facial asymmetry. All other cranial related problems are negative except as mentioned before.Reflexes:2+ and symmetric with silent plantar responses. Motor:No response to pain. Coordination and gait:Not cooperative. Sensory:Unable to test Vitals VITALS Vital Signs Date Time Temp Pulse Resp B/P (MAP) Pulse Ox O2 Delivery O2 Flow Rate FiO2 6/6/21 14:00 Mechanical Ventilator Labs Labs Laboratory Tests Test 03/03/21 10:40 03/03/21 11:10 03/03/21 13:35 White Blood Count 12.9 x10^3/uL (4.0-11.0) Red Blood Count 2.72 x10^6/uL (3.50-5.40) Hemoglobin 7.7 g/dL (12.0-15.5) Hematocrit 23.7 % (36.0-47.0) Mean Corpuscular Volume 87 fL (79-100) Mean Corpuscular Hemoglobin 28 pg (25-35) Mean Corpuscular Hemoglobin Concent 32 g/dL (31-37) Red Cell Distribution Width 16.6 % (11.5-14.5) Platelet Count 547 x10^3/uL (140-400) Neutrophils (%) (Auto) 83 % (31-73) Lymphocytes (%) (Auto) 13 % (24-48) Monocytes (%) (Auto) 3 % (0-9) Eosinophils (%) (Auto) 0 % (0-3) Basophils (%) (Auto) 0 % (0-3) Neutrophils # (Auto) 10.7 x10^3/uL (1.8-7.7) Lymphocytes # (Auto) 1.7 x10^3/uL (1.0-4.8) Monocytes # (Auto) 0.4 x10^3/uL (0.0-1.1) Eosinophils # (Auto) 0.0 x10^3/uL (0.0-0.7) Basophils # (Auto) 0.1 x10^3/uL (0.0-0.2) Sodium Level 135 mmol/L (136-145) Potassium Level 4.9 mmol/L (3.5-5.1) Chloride Level 95 mmol/L (98-107) Carbon Dioxide Level 16 mmol/L (21-32) Anion Gap 24 (6-14) Blood Urea Nitrogen 116 mg/dL (7-20) Creatinine 4.7 mg/dL (0.6-1.0) Estimated GFR (Cockcroft-Gault) 11.4 Glucose Level 271 mg/dL (70-99) Lactic Acid Level 3.9 mmol/L (0.4-2.0) Calcium Level 8.3 mg/dL (8.5-10.1) Iron Level 17 ug/dL (50-170) Total Iron Binding Capacity 216 ug/dL (250-450) Iron Saturation 8 % (15-34) Total Bilirubin 0.7 mg/dL (0.2-1.0) Direct Bilirubin 0.4 mg/dL (0.0-0.2) Aspartate Amino Transf (AST/SGOT) 204 U/L (15-37) Alanine Aminotransferase (ALT/SGPT) 159 U/L (14-59) Alkaline Phosphatase 99 U/L (46-116) Creatine Kinase 3340 U/L (26-192) Troponin I Quantitative 0.081 ng/mL (0.000-0.055) PB-Xqh-V-Type Natriuretic Peptide 587 pg/mL (0-124) Total Protein 6.4 g/dL (6.4-8.2) Albumin 1.6 g/dL (3.4-5.0) Salicylates Level < 2.8 mg/dL (2.8-20.0) Salicylate Last Dose Date Unknown Salicylate Last Dose Time Unknown Acetaminophen Level < 2 mcg/ml (10-30) Acetaminophen Last Dose Date Unknown Acetaminophen Last Dose Time Unknown Acetone Level Neg (NEG) O2 Saturation 100 % (92-99) Arterial Blood pH 7.27 (7.35-7.45) Arterial Blood pCO2 at Patient Temp 33 mmHg (35-46) Arterial Blood pO2 at Patient Temp 249 mmHg (65-108) Arterial Blood HCO3 15 mmol/L (21-28) Arterial Blood Base Excess -11 mmol/L (-3-3) Oxyhemoglobin 98.3 % Methemoglobin 0.9 % (0.0-1.9) Carbon Monoxide, Quantitative 0.3 % (0.0-1.9) FiO2 100 Urine Collection Type U cath Urine Color Yellow Urine Clarity Turbid Urine pH 6.0 (<5.0-8.0) Urine Specific [place] 1.015 (1.000-1.030) Urine Protein 30 mg/dL (NEG-TRACE) Urine Glucose (UA) Negative mg/dL (NEG) Urine Ketones (Stick) Negative mg/dL (NEG) Urine Blood Large (NEG) Urine Nitrite Negative (NEG) Urine Bilirubin Negative (NEG) Urine Urobilinogen Dipstick 0.2 mg/dL (0.2 mg/dL) Urine Leukocyte Esterase Large (NEG) Urine RBC >40 /HPF (0-2) Urine WBC Tntc /HPF (0-4) Urine Squamous Epithelial Cells Few /LPF Urine Amorphous Sediment Present /HPF Urine Bacteria Many /HPF (0-FEW) Urine Hyaline Casts Many /HPF Urine Mucus Mod /LPF Laboratory Tests Test 03/03/21 10:40 03/03/21 11:10 03/03/21 13:35 White Blood Count 12.9 x10^3/uL (4.0-11.0) Red Blood Count 2.72 x10^6/uL (3.50-5.40) Hemoglobin 7.7 g/dL (12.0-15.5) Hematocrit 23.7 % (36.0-47.0) Mean Corpuscular Volume 87 fL (79-100) Mean Corpuscular Hemoglobin 28 pg (25-35) Mean Corpuscular Hemoglobin Concent 32 g/dL (31-37) Red Cell Distribution Width 16.6 % (11.5-14.5) Platelet Count 547 x10^3/uL (140-400) Neutrophils (%) (Auto) 83 % (31-73) Lymphocytes (%) (Auto) 13 % (24-48) Monocytes (%) (Auto) 3 % (0-9) Eosinophils (%) (Auto) 0 % (0-3) Basophils (%) (Auto) 0 % (0-3) Neutrophils # (Auto) 10.7 x10^3/uL (1.8-7.7) Lymphocytes # (Auto) 1.7 x10^3/uL (1.0-4.8) Monocytes # (Auto) 0.4 x10^3/uL (0.0-1.1) Eosinophils # (Auto) 0.0 x10^3/uL (0.0-0.7) Basophils # (Auto) 0.1 x10^3/uL (0.0-0.2) Sodium Level 135 mmol/L (136-145) Potassium Level 4.9 mmol/L (3.5-5.1) Chloride Level 95 mmol/L (98-107) Carbon Dioxide Level 16 mmol/L (21-32) Anion Gap 24 (6-14) Blood Urea Nitrogen 116 mg/dL (7-20) Creatinine 4.7 mg/dL (0.6-1.0) Estimated GFR (Cockcroft-Gault) 11.4 Glucose Level 271 mg/dL (70-99) Lactic Acid Level 3.9 mmol/L (0.4-2.0) Calcium Level 8.3 mg/dL (8.5-10.1) Iron Level 17 ug/dL (50-170) Total Iron Binding Capacity 216 ug/dL (250-450) Iron Saturation 8 % (15-34) Total Bilirubin 0.7 mg/dL (0.2-1.0) Direct Bilirubin 0.4 mg/dL (0.0-0.2) Aspartate Amino Transf (AST/SGOT) 204 U/L (15-37) Alanine Aminotransferase (ALT/SGPT) 159 U/L (14-59) Alkaline Phosphatase 99 U/L (46-116) Creatine Kinase 3340 U/L (26-192) Troponin I Quantitative 0.081 ng/mL (0.000-0.055) KC-Obi-V-Type Natriuretic Peptide 587 pg/mL (0-124) Total Protein 6.4 g/dL (6.4-8.2) Albumin 1.6 g/dL (3.4-5.0) Salicylates Level < 2.8 mg/dL (2.8-20.0) Salicylate Last Dose Date Unknown Salicylate Last Dose Time Unknown Acetaminophen Level < 2 mcg/ml (10-30) Acetaminophen Last Dose Date Unknown Acetaminophen Last Dose Time Unknown Acetone Level Neg (NEG) O2 Saturation 100 % (92-99) Arterial Blood pH 7.27 (7.35-7.45) Arterial Blood pCO2 at Patient Temp 33 mmHg (35-46) Arterial Blood pO2 at Patient Temp 249 mmHg (65-108) Arterial Blood HCO3 15 mmol/L (21-28) Arterial Blood Base Excess -11 mmol/L (-3-3) Oxyhemoglobin 98.3 % Methemoglobin 0.9 % (0.0-1.9) Carbon Monoxide, Quantitative 0.3 % (0.0-1.9) FiO2 100 Urine Collection Type U cath Urine Color Yellow Urine Clarity Turbid Urine pH 6.0 (<5.0-8.0) Urine Specific [place] 1.015 (1.000-1.030) Urine Protein 30 mg/dL (NEG-TRACE) Urine Glucose (UA) Negative mg/dL (NEG) Urine Ketones (Stick) Negative mg/dL (NEG) Urine Blood Large (NEG) Urine Nitrite Negative (NEG) Urine Bilirubin Negative (NEG) Urine Urobilinogen Dipstick 0.2 mg/dL (0.2 mg/dL) Urine Leukocyte Esterase Large (NEG) Urine RBC >40 /HPF (0-2) Urine WBC Tntc /HPF (0-4) Urine Squamous Epithelial Cells Few /LPF Urine Amorphous Sediment Present /HPF Urine Bacteria Many /HPF (0-FEW) Urine Hyaline Casts Many /HPF Urine Mucus Mod /LPF Images Images Head CT without contrast. HISTORY: Altered mental status. TECHNIQUE: Computed tomographic images of the head were obtained without contrast. *One or more of the following individualized dose reduction techniques were utilized for this examination: 1. Automated exposure control. 2. Adjustment of the mA and/or kV according to patient size. 3. Use of iterative reconstruction technique. COMPARISON: 04/16/2017. FINDINGS: There is no acute or subacute extra-axial or intraparenchymal hemorrhage. There is no mass effect or midline shift. There is no hydrocephalus. There are extensive areas of hypodensity throughout the cerebral white matter, most commonly due to chronic small vessel disease. This is advanced for patient age. There are multiple chronic appearing lacunar infarcts within the left greater than right basal ganglia and lateral thalami. There is cerebral volume loss. The visualized portions of the orbits, paranasal sinuses and mastoid air cells are unremarkable. No suspicious calvarial lesion is seen. IMPRESSION: 1. Extensive white matter changes, most commonly due to chronic small vessel disease. This is advanced for patient age. There is also cerebral volume loss which is advanced for patient age. 2. Chronic infarcts within the bilateral basal ganglia and thalami. 3. Note is made that MRI is more sensitive for acute infarction. Assessment/Plan Assessment/Plan Impression: Metabolic encephalopathy, multiple medical problems, history of stroke with right hemiparesis and dysphagia requiring PEG and snf chronically. Multiorgan failure, sepsis syndrome, possible aspiration pneumonia, under investigation for Covid, rhabdomyolysis, acute kidney injury, 61 -year-old -[place] woman with past medical history of hypertension, CVA and right- sided weakness, who presented to the Emergency Room HX Cerebrovascular accident with residual spastic right hemiparesis respiratory failure on ventilator, suspected pyelonephritis with acute kidney injury [facility] records reviewed. Recommendations: Treat medical issues Hold off on lumbar puncture, MRI, or EEG ICU monitoring Thank you for letting me help with the patient's care. JANEL TAVERAS MD Mar 03, 2021 14:37
[2021-03-03] MEDS: VANCOMYCIN PER PHARMACY MC PRN ×2 (14:49→14:51)
--- NOTE | 2021-03-03 14:59 | PDOC2 ---
CONSULT Date of Consult Date of Consult DATE: 03/03/21 TIME: 14:56 Reason for Consult Reason for Consult: anemia History of Present Illness Reason for Visit: This is a 61-year-old female transferred here with acute respiratory distress requiring intubation. We do not have a lot of information but she was in a facility after having a stroke which required PEG tube due to neurogenic dysphagia. We have a hemoglobin from 4 years ago that was normal at 12 and on admission her hemoglobin 7.7. We have no history of active bleeding. An NG tube was placed at the time of her intubation and it did reveal a a lot of dark liquid in the stomach but did not appear to be active bleeding. We have no other history about bleeding or anemia from her at this point. Past Medical History Cardiovascular: HTN, Hyperlipidemia CENTRAL NERVOUS SYSTEM: CVA Psych: Other Musculoskeletal: Osteoarthritis Renal/: Urinary Incontinence Endocrine: No pertinent hx Past Surgical History Past Surgical History: Other (PEG) Family History Family History: Heart Disease, High Cholestrol, Hypertension Social History No ALCOHOL: none Drugs: Cocaine Current Problem List Problem List Problems Medical Problems: (1) Acute respiratory failure with hypoxia Status: Acute (2) Multiorgan failure Status: Acute (3) Person under investigation for COVID-19 Status: Acute (4) Pneumonia Status: Acute (5) Rhabdomyolysis Status: Acute Current Medications Current Medications Current Medications Sodium Chloride 1,000 ml @ 1,000 mls/hr Q1H IV Last administered on 03/03/21at 12:17; Start 03/03/21 at 11:00; Stop 03/03/21 at 11:59; Status DC Aztreonam (Azactam) 2 gm 1X ONCE IVP Last administered on 03/03/21at 12:17; Start 03/03/21 at 11:00; Stop 03/03/21 at 11:01; Status DC Metronidazole 100 ml @ 100 mls/hr 1X ONCE IV Last administered on 03/03/21at 12:17; Start 03/03/21 at 11:00; Stop 03/03/21 at 11:59; Status DC Vancomycin HCl (Vanco Per Pharmacy) 1 each PRN DAILY PRN MC SEE COMMENTS Last administered on 03/03/21at 14:51; Start 03/03/21 at 10:45 Etomidate (Amidate) 20 mg 1X ONCE IV ; Start 03/03/21 at 11:00; Stop 03/03/21 at 11:01; Status DC Rocuronium [place] (Zemuron) 100 mg 1X ONCE IV ; Start 03/03/21 at 11:00; Stop 03/03/21 at 11:01; Status DC Sodium Chloride 1,000 ml @ 1,000 mls/hr 1X ONCE IV ; Start 03/03/21 at 11:30; Stop 03/03/21 at 12:29; Status DC Sodium Chloride 1,000 ml @ 1,000 mls/hr 1X ONCE IV Last administered on 03/03/21at 13:00; Start 03/03/21 at 11:30; Stop 03/03/21 at 12:29; Status DC Vancomycin HCl 1.75 gm/Sodium Chloride 500 ml @ 250 mls/hr 1X ONCE IV Last administered on 03/03/21at 13:41; Start 03/03/21 at 12:30; Stop 03/03/21 at 14:29; Status DC Aztreonam (Azactam) 1 gm Q8HRS IVP ; Start 03/03/21 at 22:00 Rocuronium [place] (Zemuron) 50 mg STK-MED ONCE .ROUTE ; Start 03/03/21 at 13:26; Stop 03/03/21 at 13:26; Status DC Fentanyl Citrate 30 ml @ 0 mls/hr CONT PRN IV SEE PROTOCOL Last administered on 03/03/21at 13:49; Start 03/03/21 at 12:00 Propofol 100 ml @ 0 mls/hr CONT PRN IV PER PROTOCOL; Start 03/03/21 at 12:00 Midazolam HCl 100 ml @ 0 mls/hr CONT PRN IV SEE PROTOCOL Last administered on 03/03/21at 13:49; Start 03/03/21 at 12:00 Ondansetron HCl (Zofran) 4 mg PRN Q6HRS PRN IVP NAUSEA/VOMITING; Start 03/03/21 at 14:30 Famotidine (Pepcid Vial) 20 mg QHS IVP ; Start 03/03/21 at 21:00 Heparin Sodium (Porcine) (Heparin Sodium) 5,000 unit Q8HRS SQ ; Start 03/03/21 at 15:00 Sodium Chloride (Normal Saline Flush) 3 ml QSHIFT PRN IV AFTER MEDS AND BLOOD DRAWS; Start 03/03/21 at 14:30 Sodium Chloride 1,000 ml @ 80 mls/hr [id number] IV ; Start 03/03/21 at 14:30 Bisacodyl (Dulcolax Supp) 10 mg PRN DAILY PRN [place] CONSTIPATION; Start 03/03/21 at 14:30 Vancomycin HCl (Vancomycin Random Level) 1 each 1X ONCE MC ; Start 03/05/21 at 14:00; Stop 03/05/21 at 14:01 Active Scripts Active Reported Clopidogrel (Clopidogrel Bisulfate) 75 Mg Tablet 1 Tab PO DAILY Omeprazole 20 Mg Capsule.dr 1 Cap PO DAILY Miralax (Polyethylene Glycol 3350) 17 Gm Powd.pack 1 Packet PO DAILY 2 Days dissolve in water Lisinopril 40 Mg Tablet 1 Tab PO DAILY Itraconazole 100 Mg Capsule 200 Mg PO DAILY 7 Days Gentamicin Sulfate 30 Gm Oint...g. 1 [place] TP BID apply to affected area(s) Gabapentin 300 Mg Capsule 300 Mg PO TID Ferrous Sulfate 325 Mg Tablet 1 Tab PO DAILY Baclofen 10 Mg Tablet 1 Tab PO TID Aspirin 81 Mg Tab.chew 1 Tab PO DAILY Anaspaz (Hyoscyamine Sulfate) 0.125 Mg Tab.rapdis 0.125 Mg PO Q4HRS W/A Cepacol Sore Throat Lozenge (Benzocaine/Menthol) 1 Each Lozenge 1 Each MM TID PRN Lipitor (Atorvastatin Calcium) 80 Mg Tablet 1 Tab PO DAILY Norvasc (Amlodipine Besylate) 10 Mg Tablet 10 Mg PO DAILY Allergies Allergies: Coded Allergies: Penicillins (Verified Allergy, Intermediate, RASH, 03/03/21) Physical Exam General: Other (Sedated and intubated) Lungs: Other (Rhonchi bilaterally) Heart: Regular rate, Normal S1, Normal S2 Abdomen: Soft, No hepatosplenomegaly, Other (Decreased bowel sounds) Vitals VITALS Vital Signs Date Time Temp Pulse Resp B/P (MAP) Pulse Ox O2 Delivery O2 Flow Rate FiO2 03/03/21 14:00 Mechanical Ventilator Labs Labs Laboratory Tests Test 03/03/21 10:40 03/03/21 11:10 03/03/21 13:35 03/03/21 14:10 White Blood Count 12.9 x10^3/uL (4.0-11.0) Red Blood Count 2.72 x10^6/uL (3.50-5.40) Hemoglobin 7.7 g/dL (12.0-15.5) Hematocrit 23.7 % (36.0-47.0) Mean Corpuscular Volume 87 fL (79-100) Mean Corpuscular Hemoglobin 28 pg (25-35) Mean Corpuscular Hemoglobin Concent 32 g/dL (31-37) Red Cell Distribution Width 16.6 % (11.5-14.5) Platelet Count 547 x10^3/uL (140-400) Neutrophils (%) (Auto) 83 % (31-73) Lymphocytes (%) (Auto) 13 % (24-48) Monocytes (%) (Auto) 3 % (0-9) Eosinophils (%) (Auto) 0 % (0-3) Basophils (%) (Auto) 0 % (0-3) Neutrophils # (Auto) 10.7 x10^3/uL (1.8-7.7) Lymphocytes # (Auto) 1.7 x10^3/uL (1.0-4.8) Monocytes # (Auto) 0.4 x10^3/uL (0.0-1.1) Eosinophils # (Auto) 0.0 x10^3/uL (0.0-0.7) Basophils # (Auto) 0.1 x10^3/uL (0.0-0.2) Sodium Level 135 mmol/L (136-145) Potassium Level 4.9 mmol/L (3.5-5.1) Chloride Level 95 mmol/L (98-107) Carbon Dioxide Level 16 mmol/L (21-32) Anion Gap 24 (6-14) Blood Urea Nitrogen 116 mg/dL (7-20) Creatinine 4.7 mg/dL (0.6-1.0) Estimated GFR (Cockcroft-Gault) 11.4 Glucose Level 271 mg/dL (70-99) Lactic Acid Level 3.9 mmol/L (0.4-2.0) 2.8 mmol/L (0.4-2.0) Calcium Level 8.3 mg/dL (8.5-10.1) Iron Level 17 ug/dL (50-170) Total Iron Binding Capacity 216 ug/dL (250-450) Iron Saturation 8 % (15-34) Total Bilirubin 0.7 mg/dL (0.2-1.0) Direct Bilirubin 0.4 mg/dL (0.0-0.2) Aspartate Amino Transf (AST/SGOT) 204 U/L (15-37) Alanine Aminotransferase (ALT/SGPT) 159 U/L (14-59) Alkaline Phosphatase 99 U/L (46-116) Creatine Kinase 3340 U/L (26-192) Troponin I Quantitative 0.081 ng/mL (0.000-0.055) TO-Koe-L-Type Natriuretic Peptide 587 pg/mL (0-124) Total Protein 6.4 g/dL (6.4-8.2) Albumin 1.6 g/dL (3.4-5.0) Thyroid Stimulating Hormone (TSH) 3.418 uIU/mL (0.358-3.74) Salicylates Level < 2.8 mg/dL (2.8-20.0) Salicylate Last Dose Date Unknown Salicylate Last Dose Time Unknown Acetaminophen Level < 2 mcg/ml (10-30) Acetaminophen Last Dose Date Unknown Acetaminophen Last Dose Time Unknown Acetone Level Neg (NEG) O2 Saturation 100 % (92-99) Arterial Blood pH 7.27 (7.35-7.45) Arterial Blood pCO2 at Patient Temp 33 mmHg (35-46) Arterial Blood pO2 at Patient Temp 249 mmHg (65-108) Arterial Blood HCO3 15 mmol/L (21-28) Arterial Blood Base Excess -11 mmol/L (-3-3) Oxyhemoglobin 98.3 % Methemoglobin 0.9 % (0.0-1.9) Carbon Monoxide, Quantitative 0.3 % (0.0-1.9) FiO2 100 Urine Collection Type U cath Urine Color Yellow Urine Clarity Turbid Urine pH 6.0 (<5.0-8.0) Urine Specific [place] 1.015 (1.000-1.030) Urine Protein 30 mg/dL (NEG-TRACE) Urine Glucose (UA) Negative mg/dL (NEG) Urine Ketones (Stick) Negative mg/dL (NEG) Urine Blood Large (NEG) Urine Nitrite Negative (NEG) Urine Bilirubin Negative (NEG) Urine Urobilinogen Dipstick 0.2 mg/dL (0.2 mg/dL) Urine Leukocyte Esterase Large (NEG) Urine RBC >40 /HPF (0-2) Urine WBC Tntc /HPF (0-4) Urine Squamous Epithelial Cells Few /LPF Urine Amorphous Sediment Present /HPF Urine Bacteria Many /HPF (0-FEW) Urine Hyaline Casts Many /HPF Urine Mucus Mod /LPF Laboratory Tests Test 03/03/21 10:40 03/03/21 11:10 03/03/21 13:35 03/03/21 14:10 White Blood Count 12.9 x10^3/uL (4.0-11.0) Red Blood Count 2.72 x10^6/uL (3.50-5.40) Hemoglobin 7.7 g/dL (12.0-15.5) Hematocrit 23.7 % (36.0-47.0) Mean Corpuscular Volume 87 fL (79-100) Mean Corpuscular Hemoglobin 28 pg (25-35) Mean Corpuscular Hemoglobin Concent 32 g/dL (31-37) Red Cell Distribution Width 16.6 % (11.5-14.5) Platelet Count 547 x10^3/uL (140-400) Neutrophils (%) (Auto) 83 % (31-73) Lymphocytes (%) (Auto) 13 % (24-48) Monocytes (%) (Auto) 3 % (0-9) Eosinophils (%) (Auto) 0 % (0-3) Basophils (%) (Auto) 0 % (0-3) Neutrophils # (Auto) 10.7 x10^3/uL (1.8-7.7) Lymphocytes # (Auto) 1.7 x10^3/uL (1.0-4.8) Monocytes # (Auto) 0.4 x10^3/uL (0.0-1.1) Eosinophils # (Auto) 0.0 x10^3/uL (0.0-0.7) Basophils # (Auto) 0.1 x10^3/uL (0.0-0.2) Sodium Level 135 mmol/L (136-145) Potassium Level 4.9 mmol/L (3.5-5.1) Chloride Level 95 mmol/L (98-107) Carbon Dioxide Level 16 mmol/L (21-32) Anion Gap 24 (6-14) Blood Urea Nitrogen 116 mg/dL (7-20) Creatinine 4.7 mg/dL (0.6-1.0) Estimated GFR (Cockcroft-Gault) 11.4 Glucose Level 271 mg/dL (70-99) Lactic Acid Level 3.9 mmol/L (0.4-2.0) 2.8 mmol/L (0.4-2.0) Calcium Level 8.3 mg/dL (8.5-10.1) Iron Level 17 ug/dL (50-170) Total Iron Binding Capacity 216 ug/dL (250-450) Iron Saturation 8 % (15-34) Total Bilirubin 0.7 mg/dL (0.2-1.0) Direct Bilirubin 0.4 mg/dL (0.0-0.2) Aspartate Amino Transf (AST/SGOT) 204 U/L (15-37) Alanine Aminotransferase (ALT/SGPT) 159 U/L (14-59) Alkaline Phosphatase 99 U/L (46-116) Creatine Kinase 3340 U/L (26-192) Troponin I Quantitative 0.081 ng/mL (0.000-0.055) KR-Nts-I-Type Natriuretic Peptide 587 pg/mL (0-124) Total Protein 6.4 g/dL (6.4-8.2) Albumin 1.6 g/dL (3.4-5.0) Thyroid Stimulating Hormone (TSH) 3.418 uIU/mL (0.358-3.74) Salicylates Level < 2.8 mg/dL (2.8-20.0) Salicylate Last Dose Date Unknown Salicylate Last Dose Time Unknown Acetaminophen Level < 2 mcg/ml (10-30) Acetaminophen Last Dose Date Unknown Acetaminophen Last Dose Time Unknown Acetone Level Neg (NEG) O2 Saturation 100 % (92-99) Arterial Blood pH 7.27 (7.35-7.45) Arterial Blood pCO2 at Patient Temp 33 mmHg (35-46) Arterial Blood pO2 at Patient Temp 249 mmHg (65-108) Arterial Blood HCO3 15 mmol/L (21-28) Arterial Blood Base Excess -11 mmol/L (-3-3) Oxyhemoglobin 98.3 % Methemoglobin 0.9 % (0.0-1.9) Carbon Monoxide, Quantitative 0.3 % (0.0-1.9) FiO2 100 Urine Collection Type U cath Urine Color Yellow Urine Clarity Turbid Urine pH 6.0 (<5.0-8.0) Urine Specific [place] 1.015 (1.000-1.030) Urine Protein 30 mg/dL (NEG-TRACE) Urine Glucose (UA) Negative mg/dL (NEG) Urine Ketones (Stick) Negative mg/dL (NEG) Urine Blood Large (NEG) Urine Nitrite Negative (NEG) Urine Bilirubin Negative (NEG) Urine Urobilinogen Dipstick 0.2 mg/dL (0.2 mg/dL) Urine Leukocyte Esterase Large (NEG) Urine RBC >40 /HPF (0-2) Urine WBC Tntc /HPF (0-4) Urine Squamous Epithelial Cells Few /LPF Urine Amorphous Sediment Present /HPF Urine Bacteria Many /HPF (0-FEW) Urine Hyaline Casts Many /HPF Urine Mucus Mod /LPF Assessment/Plan Assessment/Plan Anemia. With low iron parameters. No history at this point is available to determine whether she has had chronic GI blood loss. With her history, gastritis or peptic disease are likely and deserve treatment empirically with pantoprazole or similar agent. Monitor hemoglobin and transfuse as needed during her acute illness. Check her stool for occult bleeding. Too ill for any intervention at this time but upper endoscopy may be warranted to rule out peptic disease when she is more stable. Neurogenic dysphagia with PEG tube in place. The tube itself appears in good condition and will not need to be replaced unless it becomes clogged. Reevaluation of her GI tract however is warranted if she becomes more stable. RUBY CAPPS MD Mar 03, 2021 14:59
[2021-03-03] MEDS ORDERED: C.DIFF MED SCREEN BY RX. MC ONE (15:15)
[2021-03-03] MEDS: IV NORMAL SALINE 1000ML BAG 1,000 ML IV SCH (16:26)
[2021-03-03] MEDS: HEPARIN for SUB-Q USE 5,000 UNIT/ML VIAL. SQ SCH ×2 (16:29→22:04)
--- NOTE | 2021-03-03 16:59 | NUR ---
Patient arrived on unit at 1255 accompanied by ED RN at [facility]. Patient sedated on ventilator, unable to answer admission questions. Admission questions answered by medical record, RN from [facility], and patient's family. According to RN at [facility], yesterday she was at her baseline, which is nodding her head yes/no to simple questions and alert, overnight had no issues, but around 0700 RN went in patient's room to administer an antibiotic and she noticed patient was more lethargic, tachypneic, and lung sounds coarse. Patient was then transferred. According to patient's daughter in law, patient has only been at [facility] for about 3-4 weeks, and before that she was at for approximately a month/month and a half for her latest CVA. Prior to her latest CVA, patient was able to do all ADLs with minimal assistance, and since then she has been bed ridden dependent on tube feed. Educated family on infection and current treatment regimen. Notified all physicians of consults, orders received. Wound care consult placed. According to family, patient had wounds on her coccyx before going to . [facility] has been treating them with Santyl nickel, gentamicin and calcium alginate to wound bed and cover with an ABD pad.
--- NOTE | 2021-03-03 17:42 | RAD ---
Renal ultrasound dated 03/03/2021. No comparison available. Clinical data indication: Acute kidney injury. FINDINGS: Right kidney measures 10.3 cm in length. Left kidney measures 9.1 cm in length. No hydronephrosis. No apparent mass or shadowing calculus. The urinary bladder is collapsed with Uriostegui catheter in place. IMPRESSION: No acute sonographic abnormality. No hydronephrosis. Electronically signed by: Grayson Russell MD (03/03/2021 5:40 PM) [id number]
[2021-03-03] MEDS ORDERED: IV NORMAL SALINE 500ML BAG 500 ML IV PRN (19:00)
[2021-03-03 20:19] LABS: PROTHROMBIN TIME PATIENT 17.4 SEC (11.7-14.0)
[2021-03-03 20:53] LABS: D-DIMER 14.05 ug/mlFEU (0.00-0.50)
[2021-03-03] MEDS ORDERED: FAMOTIDINE 20 MG/2 ML VIAL IVP SCH (21:00)
[2021-03-03] MEDS: NOREPINEPHRINE VIAL 8 MG in IV DEXTROSE 5% 250 ML IV PRN (21:21)
[2021-03-03] MEDS: AZTREONAM IV Push 1 GM VIAL. IVP SCH (21:57)
[2021-03-03 22:17] LABS: FECAL OB PT POSITIVE (NEG)
[2021-03-03] MEDS ORDERED: DEXTROSE 50% 25 GM / 50ML DISP.SYRIN. IV ONE (22:42)
[2021-03-03] MEDS: DEXTROSE 50% 25 GM / 50ML DISP.SYRIN. IV PRN (22:47)
[2021-03-03] MEDS: VASOPRESSIN 20 UNIT in IV DEXTROSE 5% 100ML 100 ML IV PRN (23:25)
[2021-03-04] VITALS (30 sets, daily range): BP systolic 73–130; BP diastolic 52–83
[2021-03-04] MEDS: IV NORMAL SALINE 1000ML BAG 1,000 ML IV SCH (03:00)
[2021-03-04] MEDS: DEXTROSE 50% 25 GM / 50ML DISP.SYRIN. IV PRN (04:35)
[2021-03-04 04:44] LABS: BASO % 0 % (0-3); EOS % 0 % (0-3); LYMPH # 2.2 x10^3/uL (1.0-4.8); LYMPH % 15 % (24-48); MEAN CORPUSCULAR HEMOGLOBIN 28 pg (25-35); MEAN CORPUSCULAR HGB CONC 27 g/dL (31-37); MEAN CORPUSCULAR VOLUME 101 fL (79-100); MONO # 0.4 x10^3/uL (0.0-1.1); MONO % 3 % (0-9); NEUT # 12.3 x10^3/uL (1.8-7.7); NEUT % 82 % (31-73); PLATELET COUNT 473 x10^3/uL (140-400); RED CELL DISTRIBUTION WIDTH 17.9 % (11.5-14.5)
[2021-03-04] MEDS ORDERED: EPINEPHrine VIAL 5 MG in IV NORMAL SALINE 250ML 250 ML IV PRN (04:45)
[2021-03-04 04:47] LABS: BASE EXCESS ABG -26 mmol/L (-3-3); HCO3 ABG 5 mmol/L (21-28); PCO2 ABG 24 mmHg (35-46); PO2 ABG 119 mmHg (65-108); SAT O2 ABG 96 % (92-99)
[2021-03-04 04:52] LABS: PROTHROMBIN TIME PATIENT 22.5 SEC (11.7-14.0)
[2021-03-04 04:59] LABS: HEMATOCRIT 20.1 % (36.0-47.0); HEMOGLOBIN 5.5 g/dL (12.0-15.5)
[2021-03-04] MEDS ORDERED: EPINEPHrine SYRINGE 1 MG/10 ML SYRINGE IV ONE (05:00)
[2021-03-04 05:11] LABS: FIO2 ABG 40
[2021-03-04] MEDS: NOREPINEPHRINE VIAL 8 MG in IV DEXTROSE 5% 250 ML IV PRN ×4 (05:32→20:30)
[2021-03-04 05:49] LABS: ALBUMIN 1.1 g/dL (3.4-5.0); ALBUMIN/GLOBULIN RATIO 0.2 (1.0-1.7); CALCIUM 7.6 mg/dL (8.5-10.1); CREATININE 5.2 mg/dL (0.6-1.0); GFR 10.1; TOTAL BILIRUBIN 1.3 mg/dL (0.2-1.0); TOTAL PROTEIN 5.6 g/dL (6.4-8.2)
[2021-03-04 05:53] LABS: POTASSIUM 8.7 mmol/L (3.5-5.1)
[2021-03-04] MEDS ORDERED: CALCIUM GLUCONATE 1,000 MG/10 ML VIAL. IVP ONE (06:00)
[2021-03-04] MEDS: HEPARIN for SUB-Q USE 5,000 UNIT/ML VIAL. SQ SCH ×3 (06:00→22:00)
[2021-03-04] MEDS ORDERED: SODIUM BICARB ADULT 8.4% 50 MEQ/50 ML DISP.SYRIN. IV ONE ×2 (06:00→08:00)
[2021-03-04] MEDS: SODIUM BICARBONATE VIAL 150 MEQ in IV DEXTROSE 5% 1,000 ML IV SCH ×3 (06:12→22:43)
[2021-03-04] MEDS: AZTREONAM IV Push 1 GM VIAL. IVP SCH (06:26)
--- NOTE | 2021-03-04 07:06 | NUR ---
Assumed care of patient at 1900. Blood pressures began decreasing at approx 2000, Levophed gtt started as ordered. Patient became unresponsive and blood glucose was noted at 48. Dextrose was administered per protocol, and repeat blood glucose increased. Call was placed to Dr Wallace, orders received for Vasopressin gtt that was promptly started.
--- NOTE | 2021-03-04 07:12 | NUR ---
At approx 0400 patient was noted to have decreasing blood pressure and heart rate, with increased respirations. Blood glucose was obtained and noted to be critically low. Dextrose was administered per protocol, and repeat blood glucose was acceptable. ABG was obtained and PH and HCO3 were noted to be critically low. Call was placed to Dr Fang, orders were received for dialysis catheter placement, central line placement, and CRRT.
--- NOTE | 2021-03-04 07:17 | NUR ---
Hemoglobin reported at 5.5 this AM. Call was placed to Dr Wallace, orders received for transfusion.
--- NOTE | 2021-03-04 07:18 | NUR ---
Multiple attempts were made to reach patient's son, KASIA Martinez, to obtain consent for dialysis catheter, CRRT/dialysis, central line placement, and blood transfusion. [phone] and [phone] were both out of service. [phone] was working, message was left but no return call has been received. Message was left for patient's sister, Betsy Miles at [phone]. Betsy returned my call, and gave consent for blood transfusion, dialysis catheter placement, CRRT/dialysis, and central line placement.
[2021-03-04] MEDS: VASOPRESSIN 20 UNIT in IV DEXTROSE 5% 100ML 100 ML IV PRN ×2 (07:25→16:36)
[2021-03-04 07:44] LABS: BASE EXCESS ABG -21 mmol/L (-3-3); HCO3 ABG 7 mmol/L (21-28); PCO2 ABG 22 mmHg (35-46); PO2 ABG 107 mmHg (65-108); SAT O2 ABG 95 % (92-99)
[2021-03-04] MEDS: VANCOMYCIN PER PHARMACY MC PRN (07:46)
[2021-03-04 07:47] LABS: FIO2 ABG 40%+%
[2021-03-04] MEDS ORDERED: LIDOCAINE WITH 8.4% SOD BICARB 3 ML DISP.SYRIN. ONE (07:55)
[2021-03-04] MEDS ORDERED: LIDOCAINE WITH 8.4% SOD BICARB 3 ML DISP.SYRIN. INJ ONE (08:00)
--- NOTE | 2021-03-04 08:51 | RAD ---
EXAM: CHEST ONE VIEW. HISTORY: Line placement. COMPARISON: 03/03/2021. FINDINGS: A frontal view of the chest is obtained. An endotracheal tube has its tip 7 cm above the ca michele. Right internal jugular central venous and hemodialysis catheters have their tips in the superio r vena cava. A right arm PICC line also has its tip in the superior vena cava. A nasogastric tube has its proximal sidehole at the gastroesophageal junction, recommend advancement. Surgical clips projec t in the left upper quadrant. Retrocardiac opacities have increased. Small left pleural effusion cannot be excluded. There is no pn eumothorax. The heart is not enlarged. There are atherosclerotic calcifications of the aorta. IMPRESSION: 1. Recommend advancement of the nasogastric tube by 8-10 cm. 2. Increased retrocardiac atelectasis or infiltrate. Pulmonary edema has improved. Electronically signed by: Marvel Shafer MD (03/04/2021 8:49 AM) [id number]
--- NOTE | 2021-03-04 08:58 | PDOC ---
PROGRESS NOTES Date of Service DATE: 03/04/21 TIME: 08:55 Assessment Problems Medical Problems: (1) Acute respiratory failure with hypoxia Status: Acute (2) Multiorgan failure Status: Acute (3) Person under investigation for COVID-19 Status: Acute (4) Pneumonia Status: Acute (5) Rhabdomyolysis Status: Acute Metabolic encephalopathy, multiple medical problems, history of stroke with right hemiparesis and dysphagia requiring PEG and detention chronically. Multiorgan failure, sepsis syndrome, possible aspiration pneumonia, under investigation for Covid, rhabdomyolysis, acute kidney injury, hypertension, CVA and right-sided weakness, respiratory failure on ventilator, suspected pyelonephritis with acute kidney injury Plan Treat medical issues, about to start CRRT Hold off on lumbar puncture, MRI, or EEG ICU monitoring Very poor prognosis Subjective None Objective Vital Signs Date Time Temp Pulse Resp B/P (MAP) Pulse Ox O2 Delivery O2 Flow Rate FiO2 03/04/21 08:15 Mechanical Ventilator 03/04/21 07:26 98.9 101 25 83/55 (64) 95 98.9 Intake and Output 03/04/21 07:00 Intake Total 3138.29 ml Output Total 570 ml Balance 2568.29 ml Intake IV Total 3138.29 ml Output Urine Total 170 ml Gastric Drainage Total 400 ml # Bowel Movements 2 PHYSICAL EXAM Intubated, unresponsive Pupils minimally reactive EOMI. CN: no focal findings. Muscle tone: normal. Muscle strength: No response to pain DTR: 2+ Plantar reflex: Silent Gait: not examined in bed. Sensory exam: Not testable Cerebellar: Not testable Review of Relevant I have reviewed the following items tanisha (where applicable) has been applied. Labs Laboratory Tests Test 03/03/21 10:40 03/03/21 11:10 03/03/21 13:35 03/03/21 14:10 White Blood Count 12.9 x10^3/uL (4.0-11.0) Red Blood Count 2.72 x10^6/uL (3.50-5.40) Hemoglobin 7.7 g/dL (12.0-15.5) Hematocrit 23.7 % (36.0-47.0) Mean Corpuscular Volume 87 fL (79-100) Mean Corpuscular Hemoglobin 28 pg (25-35) Mean Corpuscular Hemoglobin Concent 32 g/dL (31-37) Red Cell Distribution Width 16.6 % (11.5-14.5) Platelet Count 547 x10^3/uL (140-400) Neutrophils (%) (Auto) 83 % (31-73) Lymphocytes (%) (Auto) 13 % (24-48) Monocytes (%) (Auto) 3 % (0-9) Eosinophils (%) (Auto) 0 % (0-3) Basophils (%) (Auto) 0 % (0-3) Neutrophils # (Auto) 10.7 x10^3/uL (1.8-7.7) Lymphocytes # (Auto) 1.7 x10^3/uL (1.0-4.8) Monocytes # (Auto) 0.4 x10^3/uL (0.0-1.1) Eosinophils # (Auto) 0.0 x10^3/uL (0.0-0.7) Basophils # (Auto) 0.1 x10^3/uL (0.0-0.2) Sodium Level 135 mmol/L (136-145) Potassium Level 4.9 mmol/L (3.5-5.1) Chloride Level 95 mmol/L (98-107) Carbon Dioxide Level 16 mmol/L (21-32) Anion Gap 24 (6-14) Blood Urea Nitrogen 116 mg/dL (7-20) Creatinine 4.7 mg/dL (0.6-1.0) Estimated GFR (Cockcroft-Gault) 11.4 Glucose Level 271 mg/dL (70-99) Lactic Acid Level 3.9 mmol/L (0.4-2.0) 2.8 mmol/L (0.4-2.0) Calcium Level 8.3 mg/dL (8.5-10.1) Iron Level 17 ug/dL (50-170) Total Iron Binding Capacity 216 ug/dL (250-450) Iron Saturation 8 % (15-34) Total Bilirubin 0.7 mg/dL (0.2-1.0) Direct Bilirubin 0.4 mg/dL (0.0-0.2) Aspartate Amino Transf (AST/SGOT) 204 U/L (15-37) Alanine Aminotransferase (ALT/SGPT) 159 U/L (14-59) Alkaline Phosphatase 99 U/L (46-116) Creatine Kinase 3340 U/L (26-192) Troponin I Quantitative 0.081 ng/mL (0.000-0.055) EE-[id number]-Type Natriuretic Peptide 587 pg/mL (0-124) Total Protein 6.4 g/dL (6.4-8.2) Albumin 1.6 g/dL (3.4-5.0) Thyroid Stimulating Hormone (TSH) 3.418 uIU/mL (0.358-3.74) Salicylates Level < 2.8 mg/dL (2.8-20.0) Salicylate Last Dose Date Unknown Salicylate Last Dose Time Unknown Acetaminophen Level < 2 mcg/ml (10-30) Acetaminophen Last Dose Date Unknown Acetaminophen Last Dose Time Unknown Acetone Level Neg (NEG) Coronavirus (COVID-19)(PCR) Negative (NEGATIVE) O2 Saturation 100 % (92-99) Arterial Blood pH 7.27 (7.35-7.45) Arterial Blood pCO2 at Patient Temp 33 mmHg (35-46) Arterial Blood pO2 at Patient Temp 249 mmHg (65-108) Arterial Blood HCO3 15 mmol/L (21-28) Arterial Blood Base Excess -11 mmol/L (-3-3) Oxyhemoglobin 98.3 % Methemoglobin 0.9 % (0.0-1.9) Carbon Monoxide, Quantitative 0.3 % (0.0-1.9) FiO2 100 Urine Collection Type U cath Urine Color Yellow Urine Clarity Turbid Urine pH 6.0 (<5.0-8.0) Urine Specific [place] 1.015 (1.000-1.030) Urine Protein 30 mg/dL (NEG-TRACE) Urine Glucose (UA) Negative mg/dL (NEG) Urine Ketones (Stick) Negative mg/dL (NEG) Urine Blood Large (NEG) Urine Nitrite Negative (NEG) Urine Bilirubin Negative (NEG) Urine Urobilinogen Dipstick 0.2 mg/dL (0.2 mg/dL) Urine Leukocyte Esterase Large (NEG) Urine RBC >40 /HPF (0-2) Urine WBC Tntc /HPF (0-4) Urine Squamous Epithelial Cells Few /LPF Urine Amorphous Sediment Present /HPF Urine Bacteria Many /HPF (0-FEW) Urine Hyaline Casts Many /HPF Urine Mucus Mod /LPF Test 03/03/21 17:10 03/03/21 19:55 03/03/21 21:50 03/03/21 22:41 Troponin I Quantitative 0.089 ng/mL (0.000-0.055) Hemoglobin 7.1 g/dL (12.0-15.5) Prothrombin Time 17.4 SEC (11.7-14.0) Prothromb Time International Ratio 1.5 (0.8-1.1) Activated Partial Thromboplast Time 38 SEC (24-38) Fibrinogen 842 mg/dL (200-440) D-Dimer (Salma) 14.05 ug/mlFEU (0.00-0.50) Stool Occult Blood Positive (NEG) Glucose (Fingerstick) 48 mg/dL (70-99) Test 03/03/21 22:57 03/04/21 04:30 03/04/21 04:36 03/04/21 04:45 Glucose (Fingerstick) 134 mg/dL (70-99) 188 mg/dL (70-99) White Blood Count 15.0 x10^3/uL (4.0-11.0) Red Blood Count 2.00 x10^6/uL (3.50-5.40) Hemoglobin 5.5 g/dL (12.0-15.5) Hematocrit 20.1 % (36.0-47.0) Mean Corpuscular Volume 101 fL (79-100) Mean Corpuscular Hemoglobin 28 pg (25-35) Mean Corpuscular Hemoglobin Concent 27 g/dL (31-37) Red Cell Distribution Width 17.9 % (11.5-14.5) Platelet Count 473 x10^3/uL (140-400) Neutrophils (%) (Auto) 82 % (31-73) Lymphocytes (%) (Auto) 15 % (24-48) Monocytes (%) (Auto) 3 % (0-9) Eosinophils (%) (Auto) 0 % (0-3) Basophils (%) (Auto) 0 % (0-3) Neutrophils # (Auto) 12.3 x10^3/uL (1.8-7.7) Lymphocytes # (Auto) 2.2 x10^3/uL (1.0-4.8) Monocytes # (Auto) 0.4 x10^3/uL (0.0-1.1) Eosinophils # (Auto) 0.0 x10^3/uL (0.0-0.7) Basophils # (Auto) 0.0 x10^3/uL (0.0-0.2) Prothrombin Time 22.5 SEC (11.7-14.0) Prothromb Time International Ratio 2.0 (0.8-1.1) Activated Partial Thromboplast Time 47 SEC (24-38) Creatine Kinase 2793 U/L (26-192) O2 Saturation 96 % (92-99) Arterial Blood pH 6.92 (7.35-7.45) Arterial Blood pCO2 at Patient Temp 24 mmHg (35-46) Arterial Blood pO2 at Patient Temp 119 mmHg (65-108) Arterial Blood HCO3 5 mmol/L (21-28) Arterial Blood Base Excess -26 mmol/L (-3-3) FiO2 40 Test 03/04/21 05:30 03/04/21 06:51 03/04/21 07:40 Sodium Level 138 mmol/L (136-145) Potassium Level 8.7 mmol/L (3.5-5.1) Chloride Level 101 mmol/L (98-107) Carbon Dioxide Level 6 mmol/L (21-32) Anion Gap 31 (6-14) Blood Urea Nitrogen 121 mg/dL (7-20) Creatinine 5.2 mg/dL (0.6-1.0) Estimated GFR (Cockcroft-Gault) 10.1 BUN/Creatinine Ratio 23 (6-20) Glucose Level 127 mg/dL (70-99) Calcium Level 7.6 mg/dL (8.5-10.1) Total Bilirubin 1.3 mg/dL (0.2-1.0) Aspartate Amino Transf (AST/SGOT) 4358 U/L (15-37) Alanine Aminotransferase (ALT/SGPT) 2494 U/L (14-59) Alkaline Phosphatase 98 U/L (46-116) Total Protein 5.6 g/dL (6.4-8.2) Albumin 1.1 g/dL (3.4-5.0) Albumin/Globulin Ratio 0.2 (1.0-1.7) Glucose (Fingerstick) 85 mg/dL (70-99) O2 Saturation 95 % (92-99) Arterial Blood pH 7.10 (7.35-7.45) Arterial Blood pCO2 at Patient Temp 22 mmHg (35-46) Arterial Blood pO2 at Patient Temp 107 mmHg (65-108) Arterial Blood HCO3 7 mmol/L (21-28) Arterial Blood Base Excess -21 mmol/L (-3-3) FiO2 40%+% Laboratory Tests Test 03/03/21 10:40 03/03/21 11:10 03/03/21 13:35 03/03/21 14:10 White Blood Count 12.9 x10^3/uL (4.0-11.0) Red Blood Count 2.72 x10^6/uL (3.50-5.40) Hemoglobin 7.7 g/dL (12.0-15.5) Hematocrit 23.7 % (36.0-47.0) Mean Corpuscular Volume 87 fL (79-100) Mean Corpuscular Hemoglobin 28 pg (25-35) Mean Corpuscular Hemoglobin Concent 32 g/dL (31-37) Red Cell Distribution Width 16.6 % (11.5-14.5) Platelet Count 547 x10^3/uL (140-400) Neutrophils (%) (Auto) 83 % (31-73) Lymphocytes (%) (Auto) 13 % (24-48) Monocytes (%) (Auto) 3 % (0-9) Eosinophils (%) (Auto) 0 % (0-3) Basophils (%) (Auto) 0 % (0-3) Neutrophils # (Auto) 10.7 x10^3/uL (1.8-7.7) Lymphocytes # (Auto) 1.7 x10^3/uL (1.0-4.8) Monocytes # (Auto) 0.4 x10^3/uL (0.0-1.1) Eosinophils # (Auto) 0.0 x10^3/uL (0.0-0.7) Basophils # (Auto) 0.1 x10^3/uL (0.0-0.2) Sodium Level 135 mmol/L (136-145) Potassium Level 4.9 mmol/L (3.5-5.1) Chloride Level 95 mmol/L (98-107) Carbon Dioxide Level 16 mmol/L (21-32) Anion Gap 24 (6-14) Blood Urea Nitrogen 116 mg/dL (7-20) Creatinine 4.7 mg/dL (0.6-1.0) Estimated GFR (Cockcroft-Gault) 11.4 Glucose Level 271 mg/dL (70-99) Lactic Acid Level 3.9 mmol/L (0.4-2.0) 2.8 mmol/L (0.4-2.0) Calcium Level 8.3 mg/dL (8.5-10.1) Iron Level 17 ug/dL (50-170) Total Iron Binding Capacity 216 ug/dL (250-450) Iron Saturation 8 % (15-34) Total Bilirubin 0.7 mg/dL (0.2-1.0) Direct Bilirubin 0.4 mg/dL (0.0-0.2) Aspartate Amino Transf (AST/SGOT) 204 U/L (15-37) Alanine Aminotransferase (ALT/SGPT) 159 U/L (14-59) Alkaline Phosphatase 99 U/L (46-116) Creatine Kinase 3340 U/L (26-192) Troponin I Quantitative 0.081 ng/mL (0.000-0.055) BB-Ztt-[id number]-Type Natriuretic Peptide 587 pg/mL (0-124) Total Protein 6.4 g/dL (6.4-8.2) Albumin 1.6 g/dL (3.4-5.0) Thyroid Stimulating Hormone (TSH) 3.418 uIU/mL (0.358-3.74) Salicylates Level < 2.8 mg/dL (2.8-20.0) Salicylate Last Dose Date Unknown Salicylate Last Dose Time Unknown Acetaminophen Level < 2 mcg/ml (10-30) Acetaminophen Last Dose Date Unknown Acetaminophen Last Dose Time Unknown Acetone Level Neg (NEG) Coronavirus (COVID-19)(PCR) Negative (NEGATIVE) O2 Saturation 100 % (92-99) Arterial Blood pH 7.27 (7.35-7.45) Arterial Blood pCO2 at Patient Temp 33 mmHg (35-46) Arterial Blood pO2 at Patient Temp 249 mmHg (65-108) Arterial Blood HCO3 15 mmol/L (21-28) Arterial Blood Base Excess -11 mmol/L (-3-3) Oxyhemoglobin 98.3 % Methemoglobin 0.9 % (0.0-1.9) Carbon Monoxide, Quantitative 0.3 % (0.0-1.9) FiO2 100 Urine Collection Type U cath Urine Color Yellow Urine Clarity Turbid Urine pH 6.0 (<5.0-8.0) Urine Specific [place] 1.015 (1.000-1.030) Urine Protein 30 mg/dL (NEG-TRACE) Urine Glucose (UA) Negative mg/dL (NEG) Urine Ketones (Stick) Negative mg/dL (NEG) Urine Blood Large (NEG) Urine Nitrite Negative (NEG) Urine Bilirubin Negative (NEG) Urine Urobilinogen Dipstick 0.2 mg/dL (0.2 mg/dL) Urine Leukocyte Esterase Large (NEG) Urine RBC >40 /HPF (0-2) Urine WBC Tntc /HPF (0-4) Urine Squamous Epithelial Cells Few /LPF Urine Amorphous Sediment Present /HPF Urine Bacteria Many /HPF (0-FEW) Urine Hyaline Casts Many /HPF Urine Mucus Mod /LPF Test 03/03/21 17:10 03/03/21 19:55 03/03/21 21:50 03/03/21 22:41 Troponin I Quantitative 0.089 ng/mL (0.000-0.055) Hemoglobin 7.1 g/dL (12.0-15.5) Prothrombin Time 17.4 SEC (11.7-14.0) Prothromb Time International Ratio 1.5 (0.8-1.1) Activated Partial Thromboplast Time 38 SEC (24-38) Fibrinogen 842 mg/dL (200-440) D-Dimer (Salma) 14.05 ug/mlFEU (0.00-0.50) Stool Occult Blood Positive (NEG) Glucose (Fingerstick) 48 mg/dL (70-99) Test 03/03/21 22:57 03/04/21 04:30 03/04/21 04:36 03/04/21 04:45 Glucose (Fingerstick) 134 mg/dL (70-99) 188 mg/dL (70-99) White Blood Count 15.0 x10^3/uL (4.0-11.0) Red Blood Count 2.00 x10^6/uL (3.50-5.40) Hemoglobin 5.5 g/dL (12.0-15.5) Hematocrit 20.1 % (36.0-47.0) Mean Corpuscular Volume 101 fL (79-100) Mean Corpuscular Hemoglobin 28 pg (25-35) Mean Corpuscular Hemoglobin Concent 27 g/dL (31-37) Red Cell Distribution Width 17.9 % (11.5-14.5) Platelet Count 473 x10^3/uL (140-400) Neutrophils (%) (Auto) 82 % (31-73) Lymphocytes (%) (Auto) 15 % (24-48) Monocytes (%) (Auto) 3 % (0-9) Eosinophils (%) (Auto) 0 % (0-3) Basophils (%) (Auto) 0 % (0-3) Neutrophils # (Auto) 12.3 x10^3/uL (1.8-7.7) Lymphocytes # (Auto) 2.2 x10^3/uL (1.0-4.8) Monocytes # (Auto) 0.4 x10^3/uL (0.0-1.1) Eosinophils # (Auto) 0.0 x10^3/uL (0.0-0.7) Basophils # (Auto) 0.0 x10^3/uL (0.0-0.2) Prothrombin Time 22.5 SEC (11.7-14.0) Prothromb Time International Ratio 2.0 (0.8-1.1) Activated Partial Thromboplast Time 47 SEC (24-38) Creatine Kinase 2793 U/L (26-192) O2 Saturation 96 % (92-99) Arterial Blood pH 6.92 (7.35-7.45) Arterial Blood pCO2 at Patient Temp 24 mmHg (35-46) Arterial Blood pO2 at Patient Temp 119 mmHg (65-108) Arterial Blood HCO3 5 mmol/L (21-28) Arterial Blood Base Excess -26 mmol/L (-3-3) FiO2 40 Test 03/04/21 05:30 03/04/21 06:51 03/04/21 07:40 Sodium Level 138 mmol/L (136-145) Potassium Level 8.7 mmol/L (3.5-5.1) Chloride Level 101 mmol/L (98-107) Carbon Dioxide Level 6 mmol/L (21-32) Anion Gap 31 (6-14) Blood Urea Nitrogen 121 mg/dL (7-20) Creatinine 5.2 mg/dL (0.6-1.0) Estimated GFR (Cockcroft-Gault) 10.1 BUN/Creatinine Ratio 23 (6-20) Glucose Level 127 mg/dL (70-99) Calcium Level 7.6 mg/dL (8.5-10.1) Total Bilirubin 1.3 mg/dL (0.2-1.0) Aspartate Amino Transf (AST/SGOT) 4358 U/L (15-37) Alanine Aminotransferase (ALT/SGPT) 2494 U/L (14-59) Alkaline Phosphatase 98 U/L (46-116) Total Protein 5.6 g/dL (6.4-8.2) Albumin 1.1 g/dL (3.4-5.0) Albumin/Globulin Ratio 0.2 (1.0-1.7) Glucose (Fingerstick) 85 mg/dL (70-99) O2 Saturation 95 % (92-99) Arterial Blood pH 7.10 (7.35-7.45) Arterial Blood pCO2 at Patient Temp 22 mmHg (35-46) Arterial Blood pO2 at Patient Temp 107 mmHg (65-108) Arterial Blood HCO3 7 mmol/L (21-28) Arterial Blood Base Excess -21 mmol/L (-3-3) FiO2 40%+% Microbiology 03/03/21 Blood Culture - Final, Complete Medications Current Medications Sodium Chloride 1,000 ml @ 1,000 mls/hr Q1H IV Last administered on 03/03/21at 12:17; Start 03/03/21 at 11:00; Stop 03/03/21 at 11:59; Status DC Aztreonam (Azactam) 2 gm 1X ONCE IVP Last administered on 03/03/21at 12:17; Start 03/03/21 at 11:00; Stop 03/03/21 at 11:01; Status DC Metronidazole 100 ml @ 100 mls/hr 1X ONCE IV Last administered on 03/03/21at 12:17; Start 03/03/21 at 11:00; Stop 03/03/21 at 11:59; Status DC Vancomycin HCl (Vanco Per Pharmacy) 1 each PRN DAILY PRN MC SEE COMMENTS Last administered on 03/04/21at 07:46; Start 03/03/21 at 10:45; Stop 03/04/21 at 07:49; Status DC Etomidate (Amidate) 20 mg 1X ONCE IV Last administered on 03/03/21at 10:53; St art 03/03/21 at 11:00; Stop 03/03/21 at 11:01; Status DC Rocuronium [place] (Zemuron) 100 mg 1X ONCE IV Last administered on 03/03/21at 10:52; Start 03/03/21 at 11:00; Stop 03/03/21 at 11:01; Status DC Sodium Chloride 1,000 ml @ 1,000 mls/hr 1X ONCE IV ; Start 03/03/21 at 11:30; Stop 03/03/21 at 12:29; Status DC Sodium Chloride 1,000 ml @ 1,000 mls/hr 1X ONCE IV Last administered on 03/03/21at 13:00; Start 03/03/21 at 11:30; Stop 03/03/21 at 12:29; Status DC Vancomycin HCl 1.75 gm/Sodium Chloride 500 ml @ 250 mls/hr 1X ONCE IV Last administered on 03/03/21at 13:41; Start 03/03/21 at 12:30; Stop 03/03/21 at 14:29; Status DC Aztreonam (Azactam) 1 gm Q8HRS IVP Last administered on 03/04/21at 06:26; Start 03/03/21 at 22:00; Stop 03/04/21 at 07:50; Status DC Rocuronium [place] (Zemuron) 50 mg STK-MED ONCE .ROUTE ; Start 03/03/21 at 13:26; Stop 03/03/21 at 13:26; Status DC Fentanyl Citrate 30 ml @ 0 mls/hr CONT PRN IV SEE PROTOCOL Last administered on 03/03/21at 13:49; Start 03/03/21 at 12:00 Propofol 100 ml @ 0 mls/hr CONT PRN IV PER PROTOCOL; Start 03/03/21 at 12:00 Midazolam HCl 100 ml @ 0 mls/hr CONT PRN IV SEE PROTOCOL Last administered on at 13:49; Start 03/03/21 at 12:00 Ondansetron HCl (Zofran) 4 mg PRN Q6HRS PRN IVP NAUSEA/VOMITING; Start 03/03/21 at 14:30 Famotidine (Pepcid Vial) 20 mg QHS IVP Last administered on 03/03/21at 21:24; Start 03/03/21 at 21:00 Heparin Sodium (Porcine) (Heparin Sodium) 5,000 unit Q8HRS SQ Last administered on 03/03/21at 22:04; Start 03/03/21 at 15:00 Sodium Chloride (Normal Saline Flush) 3 ml QSHIFT PRN IV AFTER MEDS AND BLOOD DRAWS; Start 03/03/21 at 14:30 Sodium Chloride 1,000 ml @ 80 mls/hr [id number] IV Last administered on 03/03/21at 16:26; Start 03/03/21 at 14:30 Bisacodyl (Dulcolax Supp) 10 mg PRN DAILY PRN [place] CONSTIPATION; Start 03/03/21 at 14:30 Vancomycin HCl (Vancomycin Random Level) 1 each 1X ONCE MC ; Start 03/05/21 at 05:00; Stop 03/05/21 at 05:01; Status Cancel Pharmacy Consult (C.diff Med Screen By Rx) 1 each 1X ONCE MC ; Start 03/03/21 at 15:15; Stop 03/03/21 at 15:16; Status UNV Sodium Chloride 500 ml @ 1,000 mls/hr PRN Q30MIN PRN IV SEE COMMENTS; Start 03/03/21 at 19:00 Norepinephrine Bitartrate 8 mg/ Dextrose 258 ml @ 0 mls/hr CONT PRN IV SEE I/O RECORD Last administered on 03/04/21at 05:32; Start 03/03/21 at 19:00 Dobutamine HCl/ Dextrose 250 ml @ 0 mls/hr CONT PRN IV SEE I/O RECORD; Start 03/03/21 at 19:00 Dextrose (Dextrose 50%-Water Syringe) 25 gm STK-MED ONCE IV ; Start 03/03/21 at 22:42; Stop 03/03/21 at 22:42; Status DC Dextrose (Dextrose 50%-Water Syringe) 12.5 gm PRN Q15MIN PRN IV SEE COMMENTS Last administered on 03/04/21at 04:35; Start 03/03/21 at 22:45 Vasopressin 20 unit/Dextrose 101 ml @ 12 mls/hr CONT PRN IV SEE I/O RECORD Last administered on 03/04/21at 07:25; Start 03/03/21 at 23:15 Epinephrine HCl (EPINEPHrine SYRINGE) 1 mg 1X ONCE IV ; Start 03/04/21 at 05:00; Stop 03/04/21 at 05:01; Status Cancel Epinephrine HCl 5 mg/Sodium Chloride 255 ml @ 18.666 mls/ hr CONT PRN IV SEE I/O RECORD; Start 03/04/21 at 04:45 Sodium Bicarbonate (Sodium Bicarb Adult 8.4% Syr) 150 meq 1X ONCE IV Last administered on 03/04/21at 05:47; Start 03/04/21 at 06:00; Stop 03/04/21 at 06:01; Status DC Calcium Gluconate (Calcium Gluconate) 1,000 mg 1X ONCE IVP Last administered on 03/04/21at 05:47; Start 03/04/21 at 06:00; Stop 03/04/21 at 06:01; Status DC Sodium Bicarbonate 150 meq/Dextrose 1,150 ml @ 100 mls/hr [id number] IV Last administered on 03/04/21at 06:12; Start 03/04/21 at 06:00 Daptomycin 310 mg/ Sodium Chloride 50 ml @ 100 mls/hr Q24H IV ; Start 03/04/21 at 12:00 Cefepime HCl (Maxipime) 1 gm Q12HR IVP ; Start 03/04/21 at 09:00 Lidocaine HCl (Buffered Lidocaine 1%) 4 ml 1X ONCE INJ ; Start 03/04/21 at 08:00; Stop 03/04/21 at 08:01; Status DC Sodium Bicarbonate (Sodium Bicarb Adult 8.4% Syr) 100 meq 1X ONCE IV Last administered on 03/04/21at 08:06; Start 03/04/21 at 08:00; Stop 03/04/21 at 08:01; Status DC Lidocaine HCl (Buffered Lidocaine 1%) 3 ml STK-MED ONCE .ROUTE ; Start 03/04/21 at 07:55; Stop 03/04/21 at 07:55; Status DC Potassium Chloride 10 meq/ Bicarbonate Dialysis Soln w/ out KCl 5,005 ml @ 1,200 mls/hr Q4H11M IV ; Start 03/04/21 at 10:00 Potassium Chloride 10 meq/ Bicarbonate Dialysis Soln w/ out KCl 5,005 ml @ 1,200 mls/hr Q4H11M IV ; Start 03/04/21 at 10:00 Potassium Chloride 10 meq/ Bicarbonate Dialysis Soln w/ out KCl 5,005 ml @ 1,200 mls/hr Q4H11M IV ; Start 03/04/21 at 10:00 Active Scripts Active Reported Clopidogrel (Clopidogrel Bisulfate) 75 Mg Tablet 1 Tab PO DAILY Omeprazole 20 Mg Capsule.dr 1 Cap PO DAILY Miralax (Polyethylene Glycol 3350) 17 Gm Powd.pack 1 Packet PO DAILY 2 Days dissolve in water Lisinopril 40 Mg Tablet 1 Tab PO DAILY Itraconazole 100 Mg Capsule 200 Mg PO DAILY 7 Days Gentamicin Sulfate 30 Gm Oint...g. 1 [place] TP BID apply to affected area(s) Gabapentin 300 Mg Capsule 300 Mg PO TID Ferrous Sulfate 325 Mg Tablet 1 Tab PO DAILY Baclofen 10 Mg Tablet 1 Tab PO TID Aspirin 81 Mg Tab.chew 1 Tab PO DAILY Anaspaz (Hyoscyamine Sulfate) 0.125 Mg Tab.rapdis 0.125 Mg PO Q4HRS W/A Cepacol Sore Throat Lozenge (Benzocaine/Menthol) 1 Each Lozenge 1 Each MM TID PRN Lipitor (Atorvastatin Calcium) 80 Mg Tablet 1 Tab PO DAILY Norvasc (Amlodipine Besylate) 10 Mg Tablet 10 Mg PO DAILY Vitals/I & O Vital Sign - Last 24 Hours 03/03/21 03/03/21 03/03/21 03/03/21 10:32 10:49 10:55 11:16 Temp 97.4 97.4 Pulse 127 126 136 133 Resp 32 45 17 17 B/P (MAP) 95/56 (69) 118/77 (91) 90/40 (57) 121/64 (83) Pulse Ox 99 97 97 97 O2 Delivery BiPAP/CPAP BiPAP/CPAP Ventilator Ventilator 03/03/21 03/03/21 03/03/21 03/03/21 11:18 11:43 11:53 12:03 Pulse 127 124 125 Resp 18 18 18 B/P (MAP) 116/62 (80) 119/60 (79) 115/60 (78) Pulse Ox 88 97 O2 Delivery Ventilator Ventilator Ventilator Ventilator 03/03/21 03/03/21 03/03/21 03/03/21 12:33 12:43 13:00 13:15 Temp 98.7 98.7 Pulse 123 120 124 120 Resp 18 18 18 18 B/P (MAP) 107/61 (76) 114/61 (78) Pulse Ox 98 98 96 97 O2 Delivery Ventilator Ventilator Ventilator Ventilator 03/03/21 03/03/21 03/03/21 03/03/21 13:25 13:30 13:45 14:00 Pulse 120 120 Resp 18 18 B/P (MAP) 105/56 (72) 110/63 (79) Pulse Ox 96 97 O2 Delivery Ventilator Ventilator Ventilator Mechanical Ventilator 03/03/21 03/03/21 03/03/21 03/03/21 14:00 14:15 14:30 15:00 Pulse 118 118 118 118 Resp 18 18 18 18 B/P (MAP) 106/62 (77) 112/62 (79) 105/66 (79) 111/65 (80) Pulse Ox 97 96 96 94 O2 Delivery Ventilator Ventilator Ventilator Ventilator 03/03/21 03/03/21 03/03/21 03/03/21 15:36 15:41 16:00 16:29 Temp 98.4 98.4 Pulse 116 Resp 18 B/P (MAP) 114/63 (80) Pulse Ox 98 99 98 O2 Delivery Ventilator Mechanical Ventilator Ventilator Ventilator 03/03/21 03/03/21 03/03/21 03/03/21 17:00 17:52 18:00 19:00 Pulse 120 123 126 Resp 18 18 26 B/P (MAP) 87/60 (69) 87/58 (68) 91/59 (70) Pulse Ox 96 98 98 98 O2 Delivery Ventilator Ventilator Ventilator Ventilator 03/03/21 03/03/21 03/03/21 03/03/21 20:00 20:00 21:00 21:33 Temp 97.5 97.5 Pulse 124 121 Resp 27 30 B/P (MAP) 81/53 (62) 65/42 (50) 93/54 (67) Pulse Ox 100 100 O2 Delivery Mechanical Ventilator Ventilator Ventilator 03/03/21 03/03/21 03/03/21 03/03/21 22:00 22:10 22:18 22:48 Pulse 117 Resp 30 B/P (MAP) 64/50 (55) 71/38 (49) 71/44 (53) Pulse Ox 100 97 O2 Delivery Ventilator Ventilator 03/03/21 03/03/21 03/04/21 03/04/21 23:00 23:19 00:00 00:00 Temp 101.1 101.1 Pulse 117 118 Resp 31 34 B/P (MAP) 80/41 (54) 80/54 (63) 85/60 (68) Pulse Ox 100 100 O2 Delivery Ventilator Ventilator Mechanical Ventilator 03/04/21 03/04/21 03/04/21 03/04/21 00:46 00:52 01:00 02:00 Pulse 116 108 Resp 36 29 B/P (MAP) 102/54 (70) 98/60 (73) Pulse Ox 97 97 100 100 O2 Delivery Ventilator Ventilator Ventilator Ventilator 03/04/21 03/04/21 03/04/21 03/04/21 03:00 04:00 04:00 04:07 Temp 100.4 100.4 Pulse 104 95 Resp 32 25 B/P (MAP) 94/59 (71) 74/56 (62) Pulse Ox 100 95 97 O2 Delivery Ventilator Ventilator Mechanical Ventilator Ventilator 03/04/21 03/04/21 03/04/21 03/04/21 05:00 05:13 06:00 07:15 Pulse 103 115 Resp 25 28 B/P (MAP) 117/69 (85) 111/59 (76) 73/52 (59) Pulse Ox 96 97 96 O2 Delivery Ventilator Ventilator Ventilator 03/04/21 03/04/21 03/04/21 07:26 07:29 08:15 Temp 98.9 98.9 Pulse 101 Resp 25 B/P (MAP) 83/55 (64) Pulse Ox 95 O2 Delivery Ventilator Ventilator Mechanical Ventilator Intake and Output 03/03/21 03/03/21 03/04/21 15:00 23:00 07:00 Intake Total 1100 ml 507 ml 1531.29 ml Output Total 425 ml 145 ml 0 ml Balance 675 ml 362 ml 1531.29 ml Justicifation of Admission Dx: Justifications for Admission: Justification of Admission Dx: N/A JANEL TAVERAS MD Mar 04, 2021 08:58
--- NOTE | 2021-03-04 09:07 | RAD ---
03/04/2021 Procedure: 1.Ultrasound-guided placement of a Temporary hemodialysis catheter 2. Ultrasound-guided placement of a separate triple-lumen central venous catheter Sterility: All elements of maximal sterile barrier technique including the use of a cap, mask, steril e gown, sterile gloves, large sterile sheet, appropriate hand hygiene, and 2% chlorhexidine for cutan eous antisepsis (or acceptable alternative antiseptic per current guidelines) were followed for this procedure. Consent: The procedure was explained in its entirety to the patient or the patients designated repres entative by a member of the treatment team, including a discussion of the risks, benefits and commonl y accepted alternatives to the procedure, as well as the expected consequences of no therapy whatsoev er. Discussion of the risks included, but was not limited to, those that are most frequent and thos e that are rare but possibly severe or life-threatening, as well as the possibility of unforeseen com plications. Technique and Findings: Following informed consent, the patient was prepped and draped in the usual sterile fashion. Ultraso und interrogation of the right neck revealed patency and compressibility of the right internal jugula r vein. A 21-gauge micropuncture was then used to gain access to this vein under ultrasound guidance . A hard copy ultrasound image was recorded. A guidewire was advanced centrally over which, followin g dilatation, a temporary dialysis catheter was placed. The new catheter was found to flush and asp irate normally. The catheter was secured in place. Sterile dressings were applied.. Lightly more cephalad to the temporary dialysis catheter access, a 21-gauge micropuncture was then ag ain used to gain access to the right internal jugular vein. To gain access to this vein under ultraso und guidance. A hard copy ultrasound image was recorded. A guidewire was advanced centrally over whi ch, following dilatation, a triple-lumen central venous catheter catheter was placed. The new cathet er was found to flush and aspirate normally. The catheter was secured in place. Sterile dressings wer e applied. No complications were identified. IMPRESSION: 1. Ultrasound-guided right internal jugular temporary hemodialysis catheter placement 2. Ultrasound-guided right internal jugular triple-lumen central venous catheter placement Electronically signed by: Lionel Guajardo MD (03/04/2021 9:04 AM) [id number]
--- NOTE | 2021-03-04 09:25 | PDOC ---
PULMONARY PROGRESS NOTES DATE: 03/04/21 TIME: 09:25 Vitals Vital Signs Date Time Temp Pulse Resp B/P (MAP) Pulse Ox O2 Delivery O2 Flow Rate FiO2 03/04/21 09:19 110 27 124/78 (93) 93 Ventilator 03/04/21 09:15 98.9 98.9 Lungs: Clear Labs Laboratory Tests Test 03/03/21 10:40 03/03/21 11:10 03/03/21 13:35 03/03/21 14:10 White Blood Count 12.9 x10^3/uL (4.0-11.0) Red Blood Count 2.72 x10^6/uL (3.50-5.40) Hemoglobin 7.7 g/dL (12.0-15.5) Hematocrit 23.7 % (36.0-47.0) Mean Corpuscular Volume 87 fL (79-100) Mean Corpuscular Hemoglobin 28 pg (25-35) Mean Corpuscular Hemoglobin Concent 32 g/dL (31-37) Red Cell Distribution Width 16.6 % (11.5-14.5) Platelet Count 547 x10^3/uL (140-400) Neutrophils (%) (Auto) 83 % (31-73) Lymphocytes (%) (Auto) 13 % (24-48) Monocytes (%) (Auto) 3 % (0-9) Eosinophils (%) (Auto) 0 % (0-3) Basophils (%) (Auto) 0 % (0-3) Neutrophils # (Auto) 10.7 x10^3/uL (1.8-7.7) Lymphocytes # (Auto) 1.7 x10^3/uL (1.0-4.8) Monocytes # (Auto) 0.4 x10^3/uL (0.0-1.1) Eosinophils # (Auto) 0.0 x10^3/uL (0.0-0.7) Basophils # (Auto) 0.1 x10^3/uL (0.0-0.2) Sodium Level 135 mmol/L (136-145) Potassium Level 4.9 mmol/L (3.5-5.1) Chloride Level 95 mmol/L (98-107) Carbon Dioxide Level 16 mmol/L (21-32) Anion Gap 24 (6-14) Blood Urea Nitrogen 116 mg/dL (7-20) Creatinine 4.7 mg/dL (0.6-1.0) Estimated GFR (Cockcroft-Gault) 11.4 Glucose Level 271 mg/dL (70-99) Lactic Acid Level 3.9 mmol/L (0.4-2.0) 2.8 mmol/L (0.4-2.0) Calcium Level 8.3 mg/dL (8.5-10.1) Iron Level 17 ug/dL (50-170) Total Iron Binding Capacity 216 ug/dL (250-450) Iron Saturation 8 % (15-34) Total Bilirubin 0.7 mg/dL (0.2-1.0) Direct Bilirubin 0.4 mg/dL (0.0-0.2) Aspartate Amino Transf (AST/SGOT) 204 U/L (15-37) Alanine Aminotransferase (ALT/SGPT) 159 U/L (14-59) Alkaline Phosphatase 99 U/L (46-116) Creatine Kinase 3340 U/L (26-192) Troponin I Quantitative 0.081 ng/mL (0.000-0.055) EX-Hpy-Q-Type Natriuretic Peptide 587 pg/mL (0-124) Total Protein 6.4 g/dL (6.4-8.2) Albumin 1.6 g/dL (3.4-5.0) Thyroid Stimulating Hormone (TSH) 3.418 uIU/mL (0.358-3.74) Salicylates Level < 2.8 mg/dL (2.8-20.0) Salicylate Last Dose Date Unknown Salicylate Last Dose Time Unknown Acetaminophen Level < 2 mcg/ml (10-30) Acetaminophen Last Dose Date Unknown Acetaminophen Last Dose Time Unknown Acetone Level Neg (NEG) Coronavirus (COVID-19)(PCR) Negative (NEGATIVE) O2 Saturation 100 % (92-99) Arterial Blood pH 7.27 (7.35-7.45) Arterial Blood pCO2 at Patient Temp 33 mmHg (35-46) Arterial Blood pO2 at Patient Temp 249 mmHg (65-108) Arterial Blood HCO3 15 mmol/L (21-28) Arterial Blood Base Excess -11 mmol/L (-3-3) Oxyhemoglobin 98.3 % Methemoglobin 0.9 % (0.0-1.9) Carbon Monoxide, Quantitative 0.3 % (0.0-1.9) FiO2 100 Urine Collection Type U cath Urine Color Yellow Urine Clarity Turbid Urine pH 6.0 (<5.0-8.0) Urine Specific Burwell 1.015 (1.000-1.030) Urine Protein 30 mg/dL (NEG-TRACE) Urine Glucose (UA) Negative mg/dL (NEG) Urine Ketones (Stick) Negative mg/dL (NEG) Urine Blood Large (NEG) Urine Nitrite Negative (NEG) Urine Bilirubin Negative (NEG) Urine Urobilinogen Dipstick 0.2 mg/dL (0.2 mg/dL) Urine Leukocyte Esterase Large (NEG) Urine RBC >40 /HPF (0-2) Urine WBC Tntc /HPF (0-4) Urine Squamous Epithelial Cells Few /LPF Urine Amorphous Sediment Present /HPF Urine Bacteria Many /HPF (0-FEW) Urine Hyaline Casts Many /HPF Urine Mucus Mod /LPF Test 03/03/21 17:10 03/03/21 19:55 03/03/21 21:50 03/03/21 22:41 Troponin I Quantitative 0.089 ng/mL (0.000-0.055) Hemoglobin 7.1 g/dL (12.0-15.5) Prothrombin Time 17.4 SEC (11.7-14.0) Prothromb Time International Ratio 1.5 (0.8-1.1) Activated Partial Thromboplast Time 38 SEC (24-38) Fibrinogen 842 mg/dL (200-440) D-Dimer (Salma) 14.05 ug/mlFEU (0.00-0.50) Stool Occult Blood Positive (NEG) Glucose (Fingerstick) 48 mg/dL (70-99) Test 03/03/21 22:57 03/04/21 04:30 03/04/21 04:36 03/04/21 04:45 Glucose (Fingerstick) 134 mg/dL (70-99) 188 mg/dL (70-99) White Blood Count 15.0 x10^3/uL (4.0-11.0) Red Blood Count 2.00 x10^6/uL (3.50-5.40) Hemoglobin 5.5 g/dL (12.0-15.5) Hematocrit 20.1 % (36.0-47.0) Mean Corpuscular Volume 101 fL (79-100) Mean Corpuscular Hemoglobin 28 pg (25-35) Mean Corpuscular Hemoglobin Concent 27 g/dL (31-37) Red Cell Distribution Width 17.9 % (11.5-14.5) Platelet Count 473 x10^3/uL (140-400) Neutrophils (%) (Auto) 82 % (31-73) Lymphocytes (%) (Auto) 15 % (24-48) Monocytes (%) (Auto) 3 % (0-9) Eosinophils (%) (Auto) 0 % (0-3) Basophils (%) (Auto) 0 % (0-3) Neutrophils # (Auto) 12.3 x10^3/uL (1.8-7.7) Lymphocytes # (Auto) 2.2 x10^3/uL (1.0-4.8) Monocytes # (Auto) 0.4 x10^3/uL (0.0-1.1) Eosinophils # (Auto) 0.0 x10^3/uL (0.0-0.7) Basophils # (Auto) 0.0 x10^3/uL (0.0-0.2) Prothrombin Time 22.5 SEC (11.7-14.0) Prothromb Time International Ratio 2.0 (0.8-1.1) Activated Partial Thromboplast Time 47 SEC (24-38) Creatine Kinase 2793 U/L (26-192) O2 Saturation 96 % (92-99) Arterial Blood pH 6.92 (7.35-7.45) Arterial Blood pCO2 at Patient Temp 24 mmHg (35-46) Arterial Blood pO2 at Patient Temp 119 mmHg (65-108) Arterial Blood HCO3 5 mmol/L (21-28) Arterial Blood Base Excess -26 mmol/L (-3-3) FiO2 40 Test 03/04/21 05:30 03/04/21 06:51 03/04/21 07:40 Sodium Level 138 mmol/L (136-145) Potassium Level 8.7 mmol/L (3.5-5.1) Chloride Level 101 mmol/L (98-107) Carbon Dioxide Level 6 mmol/L (21-32) Anion Gap 31 (6-14) Blood Urea Nitrogen 121 mg/dL (7-20) Creatinine 5.2 mg/dL (0.6-1.0) Estimated GFR (Cockcroft-Gault) 10.1 BUN/Creatinine Ratio 23 (6-20) Glucose Level 127 mg/dL (70-99) Calcium Level 7.6 mg/dL (8.5-10.1) Total Bilirubin 1.3 mg/dL (0.2-1.0) Aspartate Amino Transf (AST/SGOT) 4358 U/L (15-37) Alanine Aminotransferase (ALT/SGPT) 2494 U/L (14-59) Alkaline Phosphatase 98 U/L (46-116) Total Protein 5.6 g/dL (6.4-8.2) Albumin 1.1 g/dL (3.4-5.0) Albumin/Globulin Ratio 0.2 (1.0-1.7) Glucose (Fingerstick) 85 mg/dL (70-99) O2 Saturation 95 % (92-99) Arterial Blood pH 7.10 (7.35-7.45) Arterial Blood pCO2 at Patient Temp 22 mmHg (35-46) Arterial Blood pO2 at Patient Temp 107 mmHg (65-108) Arterial Blood HCO3 7 mmol/L (21-28) Arterial Blood Base Excess -21 mmol/L (-3-3) FiO2 40%+% Laboratory Tests Test 03/03/21 10:40 03/03/21 11:10 03/03/21 13:35 03/03/21 14:10 White Blood Count 12.9 x10^3/uL (4.0-11.0) Red Blood Count 2.72 x10^6/uL (3.50-5.40) Hemoglobin 7.7 g/dL (12.0-15.5) Hematocrit 23.7 % (36.0-47.0) Mean Corpuscular Volume 87 fL (79-100) Mean Corpuscular Hemoglobin 28 pg (25-35) Mean Corpuscular Hemoglobin Concent 32 g/dL (31-37) Red Cell Distribution Width 16.6 % (11.5-14.5) Platelet Count 547 x10^3/uL (140-400) Neutrophils (%) (Auto) 83 % (31-73) Lymphocytes (%) (Auto) 13 % (24-48) Monocytes (%) (Auto) 3 % (0-9) Eosinophils (%) (Auto) 0 % (0-3) Basophils (%) (Auto) 0 % (0-3) Neutrophils # (Auto) 10.7 x10^3/uL (1.8-7.7) Lymphocytes # (Auto) 1.7 x10^3/uL (1.0-4.8) Monocytes # (Auto) 0.4 x10^3/uL (0.0-1.1) Eosinophils # (Auto) 0.0 x10^3/uL (0.0-0.7) Basophils # (Auto) 0.1 x10^3/uL (0.0-0.2) Sodium Level 135 mmol/L (136-145) Potassium Level 4.9 mmol/L (3.5-5.1) Chloride Level 95 mmol/L (98-107) Carbon Dioxide Level 16 mmol/L (21-32) Anion Gap 24 (6-14) Blood Urea Nitrogen 116 mg/dL (7-20) Creatinine 4.7 mg/dL (0.6-1.0) Estimated GFR (Cockcroft-Gault) 11.4 Glucose Level 271 mg/dL (70-99) Lactic Acid Level 3.9 mmol/L (0.4-2.0) 2.8 mmol/L (0.4-2.0) Calcium Level 8.3 mg/dL (8.5-10.1) Iron Level 17 ug/dL (50-170) Total Iron Binding Capacity 216 ug/dL (250-450) Iron Saturation 8 % (15-34) Total Bilirubin 0.7 mg/dL (0.2-1.0) Direct Bilirubin 0.4 mg/dL (0.0-0.2) Aspartate Amino Transf (AST/SGOT) 204 U/L (15-37) Alanine Aminotransferase (ALT/SGPT) 159 U/L (14-59) Alkaline Phosphatase 99 U/L (46-116) Creatine Kinase 3340 U/L (26-192) Troponin I Quantitative 0.081 ng/mL (0.000-0.055) AB-Jvo-I-Type Natriuretic Peptide 587 pg/mL (0-124) Total Protein 6.4 g/dL (6.4-8.2) Albumin 1.6 g/dL (3.4-5.0) Thyroid Stimulating Hormone (TSH) 3.418 uIU/mL (0.358-3.74) Salicylates Level < 2.8 mg/dL (2.8-20.0) Salicylate Last Dose Date Unknown Salicylate Last Dose Time Unknown Acetaminophen Level < 2 mcg/ml (10-30) Acetaminophen Last Dose Date Unknown Acetaminophen Last Dose Time Unknown Acetone Level Neg (NEG) Coronavirus (COVID-19)(PCR) Negative (NEGATIVE) O2 Saturation 100 % (92-99) Arterial Blood pH 7.27 (7.35-7.45) Arterial Blood pCO2 at Patient Temp 33 mmHg (35-46) Arterial Blood pO2 at Patient Temp 249 mmHg (65-108) Arterial Blood HCO3 15 mmol/L (21-28) Arterial Blood Base Excess -11 mmol/L (-3-3) Oxyhemoglobin 98.3 % Methemoglobin 0.9 % (0.0-1.9) Carbon Monoxide, Quantitative 0.3 % (0.0-1.9) FiO2 100 Urine Collection Type U cath Urine Color Yellow Urine Clarity Turbid Urine pH 6.0 (<5.0-8.0) Urine Specific [place]well 1.015 (1.000-1.030) Urine Protein 30 mg/dL (NEG-TRACE) Urine Glucose (UA) Negative mg/dL (NEG) Urine Ketones (Stick) Negative mg/dL (NEG) Urine Blood Large (NEG) Urine Nitrite Negative (NEG) Urine Bilirubin Negative (NEG) Urine Urobilinogen Dipstick 0.2 mg/dL (0.2 mg/dL) Urine Leukocyte Esterase Large (NEG) Urine RBC >40 /HPF (0-2) Urine WBC Tntc /HPF (0-4) Urine Squamous Epithelial Cells Few /LPF Urine Amorphous Sediment Present /HPF Urine Bacteria Many /HPF (0-FEW) Urine Hyaline Casts Many /HPF Urine Mucus Mod /LPF Test 03/03/21 17:10 03/03/21 19:55 03/03/21 21:50 03/03/21 22:41 Troponin I Quantitative 0.089 ng/mL (0.000-0.055) Hemoglobin 7.1 g/dL (12.0-15.5) Prothrombin Time 17.4 SEC (11.7-14.0) Prothromb Time International Ratio 1.5 (0.8-1.1) Activated Partial Thromboplast Time 38 SEC (24-38) Fibrinogen 842 mg/dL (200-440) D-Dimer (Salma) 14.05 ug/mlFEU (0.00-0.50) Stool Occult Blood Positive (NEG) Glucose (Fingerstick) 48 mg/dL (70-99) Test 03/03/21 22:57 03/04/21 04:30 03/04/21 04:36 03/04/21 04:45 Glucose (Fingerstick) 134 mg/dL (70-99) 188 mg/dL (70-99) White Blood Count 15.0 x10^3/uL (4.0-11.0) Red Blood Count 2.00 x10^6/uL (3.50-5.40) Hemoglobin 5.5 g/dL (12.0-15.5) Hematocrit 20.1 % (36.0-47.0) Mean Corpuscular Volume 101 fL (79-100) Mean Corpuscular Hemoglobin 28 pg (25-35) Mean Corpuscular Hemoglobin Concent 27 g/dL (31-37) Red Cell Distribution Width 17.9 % (11.5-14.5) Platelet Count 473 x10^3/uL (140-400) Neutrophils (%) (Auto) 82 % (31-73) Lymphocytes (%) (Auto) 15 % (24-48) Monocytes (%) (Auto) 3 % (0-9) Eosinophils (%) (Auto) 0 % (0-3) Basophils (%) (Auto) 0 % (0-3) Neutrophils # (Auto) 12.3 x10^3/uL (1.8-7.7) Lymphocytes # (Auto) 2.2 x10^3/uL (1.0-4.8) Monocytes # (Auto) 0.4 x10^3/uL (0.0-1.1) Eosinophils # (Auto) 0.0 x10^3/uL (0.0-0.7) Basophils # (Auto) 0.0 x10^3/uL (0.0-0.2) Prothrombin Time 22.5 SEC (11.7-14.0) Prothromb Time International Ratio 2.0 (0.8-1.1) Activated Partial Thromboplast Time 47 SEC (24-38) Creatine Kinase 2793 U/L (26-192) O2 Saturation 96 % (92-99) Arterial Blood pH 6.92 (7.35-7.45) Arterial Blood pCO2 at Patient Temp 24 mmHg (35-46) Arterial Blood pO2 at Patient Temp 119 mmHg (65-108) Arterial Blood HCO3 5 mmol/L (21-28) Arterial Blood Base Excess -26 mmol/L (-3-3) FiO2 40 Test 03/04/21 05:30 03/04/21 06:51 03/04/21 07:40 Sodium Level 138 mmol/L (136-145) Potassium Level 8.7 mmol/L (3.5-5.1) Chloride Level 101 mmol/L (98-107) Carbon Dioxide Level 6 mmol/L (21-32) Anion Gap 31 (6-14) Blood Urea Nitrogen 121 mg/dL (7-20) Creatinine 5.2 mg/dL (0.6-1.0) Estimated GFR (Cockcroft-Gault) 10.1 BUN/Creatinine Ratio 23 (6-20) Glucose Level 127 mg/dL (70-99) Calcium Level 7.6 mg/dL (8.5-10.1) Total Bilirubin 1.3 mg/dL (0.2-1.0) Aspartate Amino Transf (AST/SGOT) 4358 U/L (15-37) Alanine Aminotransferase (ALT/SGPT) 2494 U/L (14-59) Alkaline Phosphatase 98 U/L (46-116) Total Protein 5.6 g/dL (6.4-8.2) Albumin 1.1 g/dL (3.4-5.0) Albumin/Globulin Ratio 0.2 (1.0-1.7) Glucose (Fingerstick) 85 mg/dL (70-99) O2 Saturation 95 % (92-99) Arterial Blood pH 7.10 (7.35-7.45) Arterial Blood pCO2 at Patient Temp 22 mmHg (35-46) Arterial Blood pO2 at Patient Temp 107 mmHg (65-108) Arterial Blood HCO3 7 mmol/L (21-28) Arterial Blood Base Excess -21 mmol/L (-3-3) FiO2 40%+% Medications Active Scripts Medications Dose Route/Sig Max Daily Dose Days Date Category Dose Instructions Clopidogrel (Clopidogrel Bisulfate) 75 Mg Tablet 1 Tab PO DAILY 03/03/21 Reported Omeprazole 20 Mg Capsule.dr 1 Cap PO DAILY 03/03/21 Reported Miralax (Polyethylene Glycol 3350) 17 Gm Powd.pack 1 Packet PO DAILY 2 03/03/21 Reported dissolve in water Lisinopril 40 Mg Tablet 1 Tab PO DAILY 03/03/21 Reported Itraconazole 100 Mg Capsule 200 Mg PO DAILY 7 03/03/21 Reported Gentamicin Sulfate 30 Gm Oint...g. 1 [place] TP BID 03/03/21 Reported apply to affected area(s) Gabapentin 300 Mg Capsule 300 Mg PO TID 03/03/21 Reported Ferrous Sulfate 325 Mg Tablet 1 Tab PO DAILY 03/03/21 Reported Baclofen 10 Mg Tablet 1 Tab PO TID 03/03/21 Reported Aspirin 81 Mg Tab.chew 1 Tab PO DAILY 03/03/21 Reported Anaspaz (Hyoscyamine Sulfate) 0.125 Mg Tab.rapdis 0.125 Mg PO Q4HRS W/A 03/03/21 Reported Cepacol Sore Throat Lozenge (Benzocaine/Menthol) 1 Each Lozenge 1 Each MM TID PRN 04/18/17 Reported Lipitor (Atorvastatin Calcium) 80 Mg Tablet 1 Tab PO DAILY 04/18/17 Reported Norvasc (Amlodipine Besylate) 10 Mg Tablet 10 Mg PO DAILY 04/18/17 Reported JAVID TORRES MD Mar 04, 2021 09:25
--- NOTE | 2021-03-04 09:33 | PDOC2 ---
CONSULT Date of Consult Date of Consult DATE: 03/04/21 TIME: 09:07 Reason for Consult Reason for Consult: LATHA , Severe MA, Severe HyperKalemia Identification/Chief Complaint Chief Complaint Unable to Obtain, pt is intubated/MV Source Source: Chart review History of Present Illness Reason for Visit: 61 -year-old -[place] woman with past medical history of hypertension, CVA and right-sided weakness, admitted on 03/03 - came to Emergency Room from [facility] [place] - with concern for shortness of breath, per EMS report patient was hypoxic saturating 70%. Patient placed on BiPAP and transferred to the ED. Hx was obtained from fpc documents that showed patient has history of CVA (unknown baseline mental functioning status), hypertension neuromuscular dysfunction of bladder with indwelling Uriostegui catheter, obesity and nicotine dependence. Patient is a full code. She deteriorated clinically early this morning- currently on 2 pressors, severe Metabolic acidosis, HyperKalemia . Nephrology (Dr. Fang) was paged - with recommendations for stat start CRRT . She got Temp HDC for CRRT . Minimal UOP History Obtained from chart review 2/2 Intubated /MV Past Medical History Cardiovascular: HTN, Hyperlipidemia CENTRAL NERVOUS SYSTEM: CVA Psych: Other Musculoskeletal: Osteoarthritis Renal/: Urinary Incontinence Endocrine: No pertinent hx Past Surgical History Past Surgical History: Other (PEG) Family History Family History: Heart Disease, High Cholestrol, Hypertension Social History No ALCOHOL: none Drugs: Cocaine Current Problem List Problem List Problems Medical Problems: (1) Acute respiratory failure with hypoxia Status: Acute (2) Multiorgan failure Status: Acute (3) Person under investigation for COVID-19 Status: Acute (4) Pneumonia Status: Acute (5) Rhabdomyolysis Status: Acute Current Medications Current Medications Current Medications Sodium Chloride 1,000 ml @ 1,000 mls/hr Q1H IV Last administered on 03/03/21at 12:17; Start 03/03/21 at 11:00; Stop 03/03/21 at 11:59; Status DC Aztreonam (Azactam) 2 gm 1X ONCE IVP Last administered on 03/03/21at 12:17; Start 03/03/21 at 11:00; Stop 03/03/21 at 11:01; Status DC Metronidazole 100 ml @ 100 mls/hr 1X ONCE IV Last administered on 03/03/21at 12:17; Start 03/03/21 at 11:00; Stop 03/03/21 at 11:59; Status DC Vancomycin HCl (Vanco Per Pharmacy) 1 each PRN DAILY PRN MC SEE COMMENTS Last administered on 03/04/21at 07:46; Start 03/03/21 at 10:45; Stop 03/04/21 at 07:49; Status DC Etomidate (Amidate) 20 mg 1X ONCE IV Last administered on 03/03/21at 10:53; Start 03/03/21 at 11:00; Stop 03/03/21 at 11:01; Status DC Rocuronium Blackwell (Zemuron) 100 mg 1X ONCE IV Last administered on 03/03/21at 10:52; Start 03/03/21 at 11:00; Stop 03/03/21 at 11:01; Status DC Sodium Chloride 1,000 ml @ 1,000 mls/hr 1X ONCE IV ; Start 03/03/21 at 11:30; Stop 03/03/21 at 12:29; Status DC Sodium Chloride 1,000 ml @ 1,000 mls/hr 1X ONCE IV Last administered on 03/03/21at 13:00; Start 03/03/21 at 11:30; Stop 03/03/21 at 12:29; Status DC Vancomycin HCl 1.75 gm/Sodium Chloride 500 ml @ 250 mls/hr 1X ONCE IV Last administered on 03/03/21at 13:41; Start 03/03/21 at 12:30; Stop 03/03/21 at 14:29; Status DC Aztreonam (Azactam) 1 gm Q8HRS IVP Last administered on 03/04/21at 06:26; Start 03/03/21 at 22:00; Stop 03/04/21 at 07:50; Status DC Rocuronium Blackwell (Zemuron) 50 mg STK-MED ONCE .ROUTE ; Start 03/03/21 at 13:26; Stop 03/03/21 at 13:26; Status DC Fentanyl Citrate 30 ml @ 0 mls/hr CONT PRN IV SEE PROTOCOL Last administered on 03/03/21at 13:49; Start 03/03/21 at 12:00 Propofol 100 ml @ 0 mls/hr CONT PRN IV PER PROTOCOL; Start 03/03/21 at 12:00 Midazolam HCl 100 ml @ 0 mls/hr CONT PRN IV SEE PROTOCOL Last administered on 03/03/21at 13:49; Start 03/03/21 at 12:00 Ondansetron HCl (Zofran) 4 mg PRN Q6HRS PRN IVP NAUSEA/VOMITING; Start 03/03/21 at 14:30 Famotidine (Pepcid Vial) 20 mg QHS IVP Last administered on 03/03/21at 21:24; Start 03/03/21 at 21:00 Heparin Sodium (Porcine) (Heparin Sodium) 5,000 unit Q8HRS SQ Last administered on 03/03/21at 22:04; Start 03/03/21 at 15:00 Sodium Chloride (Normal Saline Flush) 3 ml QSHIFT PRN IV AFTER MEDS AND BLOOD DRAWS; Start 03/03/21 at 14:30 Sodium Chloride 1,000 ml @ 80 mls/hr [id number] IV Last administered on 03/03/21at 16:26; Start 03/03/21 at 14:30 Bisacodyl (Dulcolax Supp) 10 mg PRN DAILY PRN VT CONSTIPATION; Start 03/03/21 at 14:30 Vancomycin HCl (Vancomycin Random Level) 1 each 1X ONCE MC ; Start 03/05/21 at 05:00; Stop 03/05/21 at 05:01; Status Cancel Pharmacy Consult (C.diff Med Screen By Rx) 1 each 1X ONCE MC ; Start 03/03/21 at 15:15; Stop 03/03/21 at 15:16; Status UNV Sodium Chloride 500 ml @ 1,000 mls/hr PRN Q30MIN PRN IV SEE COMMENTS; Start 03/03/21 at 19:00 Norepinephrine Bitartrate 8 mg/ Dextrose 258 ml @ 0 mls/hr CONT PRN IV SEE I/O RECORD Last administered on 03/04/21at 05:32; Start 03/03/21 at 19:00 Dobutamine HCl/ Dextrose 250 ml @ 0 mls/hr CONT PRN IV SEE I/O RECORD; Start 03/03/21 at 19:00 Dextrose (Dextrose 50%-Water Syringe) 25 gm STK-MED ONCE IV ; Start 03/03/21 at 22:42; Stop 03/03/21 at 22:42; Status DC Dextrose (Dextrose 50%-Water Syringe) 12.5 gm PRN Q15MIN PRN IV SEE COMMENTS Last administered on 03/04/21at 04:35; Start 03/03/21 at 22:45 Vasopressin 20 unit/Dextrose 101 ml @ 12 mls/hr CONT PRN IV SEE I/O RECORD Last administered on 03/04/21at 07:25; Start 03/03/21 at 23:15 Epinephrine HCl (EPINEPHrine SYRINGE) 1 mg 1X ONCE IV ; Start 03/04/21 at 05:00; Stop 03/04/21 at 05:01; Status Cancel Epinephrine HCl 5 mg/Sodium Chloride 255 ml @ 18.666 mls/ hr CONT PRN IV SEE I/O RECORD; Start 03/04/21 at 04:45 Sodium Bicarbonate (Sodium Bicarb Adult 8.4% Syr) 150 meq 1X ONCE IV Last administered on 03/04/21at 05:47; Start 03/04/21 at 06:00; Stop 03/04/21 at 06:01; Status DC Calcium Gluconate (Calcium Gluconate) 1,000 mg 1X ONCE IVP Last administered on 03/04/21at 05:47; Start 03/04/21 at 06:00; Stop 03/04/21 at 06:01; Status DC Sodium Bicarbonate 150 meq/Dextrose 1,150 ml @ 100 mls/hr [id number] IV Last administered on 03/04/21at 06:12; Start 03/04/21 at 06:00 Daptomycin 310 mg/ Sodium Chloride 50 ml @ 100 mls/hr Q24H IV ; Start 03/04/21 at 12:00 Cefepime HCl (Maxipime) 1 gm Q12HR IVP ; Start 03/04/21 at 09:00 Lidocaine HCl (Buffered Lidocaine 1%) 4 ml 1X ONCE INJ ; Start 03/04/21 at 08:00; Stop 03/04/21 at 08:01; Status DC Sodium Bicarbonate (Sodium Bicarb Adult 8.4% Syr) 100 meq 1X ONCE IV Last administered on 03/04/21at 08:06; Start 03/04/21 at 08:00; Stop 03/04/21 at 08:01; Status DC Lidocaine HCl (Buffered Lidocaine 1%) 3 ml STK-MED ONCE .ROUTE ; Start 03/04/21 at 07:55; Stop 03/04/21 at 07:55; Status DC Potassium Chloride 10 meq/ Bicarbonate Dialysis Soln w/ out KCl 5,005 ml @ 1,200 mls/hr Q4H11M IV ; Start 03/04/21 at 10:00 Potassium Chloride 10 meq/ Bicarbonate Dialysis Soln w/ out KCl 5,005 ml @ 1,200 mls/hr Q4H11M IV ; Start 03/04/21 at 10:00 Potassium Chloride 10 meq/ Bicarbonate Dialysis Soln w/ out KCl 5,005 ml @ 1,200 mls/hr Q4H11M IV ; Start 03/04/21 at 10:00 Active Scripts Active Reported Clopidogrel (Clopidogrel Bisulfate) 75 Mg Tablet 1 Tab PO DAILY Omeprazole 20 Mg Capsule.dr 1 Cap PO DAILY Miralax (Polyethylene Glycol 3350) 17 Gm Powd.pack 1 Packet PO DAILY 2 Days dissolve in water Lisinopril 40 Mg Tablet 1 Tab PO DAILY Itraconazole 100 Mg Capsule 200 Mg PO DAILY 7 Days Gentamicin Sulfate 30 Gm Oint...g. 1 [place] TP BID apply to affected area(s) Gabapentin 300 Mg Capsule 300 Mg PO TID Ferrous Sulfate 325 Mg Tablet 1 Tab PO DAILY Baclofen 10 Mg Tablet 1 Tab PO TID Aspirin 81 Mg Tab.chew 1 Tab PO DAILY Anaspaz (Hyoscyamine Sulfate) 0.125 Mg Tab.rapdis 0.125 Mg PO Q4HRS W/A Cepacol Sore Throat Lozenge (Benzocaine/Menthol) 1 Each Lozenge 1 Each MM TID PRN Lipitor (Atorvastatin Calcium) 80 Mg Tablet 1 Tab PO DAILY Norvasc (Amlodipine Besylate) 10 Mg Tablet 10 Mg PO DAILY Allergies Allergies: Coded Allergies: Penicillins (Verified Allergy, Intermediate, RASH, 03/03/21) ROS Review of System Unable to Obtain, pt is intubated/MV Physical Exam Physical Exam GENERAL: Sedated has a tracheostomy and on a ventilator, HEENT: Both pupils are round and reacting. NECK: Supple. Tracheostomy in place. LUNGS: Decreased breath sounds bilaterally. HEART: S1, S2 regular. ABDOMEN: Soft, nontender. PEG tube is in place. EXTREMITIES: gluteal wounds bilaterally(per ID exam) . NEUROLOGIC: unresponsive.Rest exam per neurologist , past Hx of Cva Chronic Uriostegui + Psych Unable to assess Vital Signs Vital Signs Date Time Temp Pulse Resp B/P (MAP) Pulse Ox O2 Delivery O2 Flow Rate FiO2 03/04/21 08:15 Mechanical Ventilator 03/04/21 07:26 98.9 101 25 83/55 (64) 95 98.9 Assessment & Plan LATHA - ATN 2/2 Sepsis/ multiorgan failure , Oligoanuric , No imaging available, US pending , Supportive care CRRT , discussed treatment plan with Roseline Severe HyperKalemia- CRRT Acidosis severe- On IV Bicarb, CRRT Sepsis- Bld Cx positive for Gram Positive Cocci in pairs and chains Rhabdomyolysis- Mild UTI/? Pyelonephritis - Chronic indwelling Uriostegui/Neurogenic Bladder Ac Resp failure - suspected right lower lobe predominant interstitial infiltrate. suspect aspiration pneumonia History of stroke with right hemiparesis and dysphagia requiring PEG and fpc chronically. Anemia- Acute decrease , defer top primary Elevated LFT's - MultiOrgan failure Labs Labs Laboratory Tests Test 03/03/21 10:40 03/03/21 11:10 03/03/21 13:35 03/03/21 14:10 White Blood Count 12.9 x10^3/uL (4.0-11.0) Red Blood Count 2.72 x10^6/uL (3.50-5.40) Hemoglobin 7.7 g/dL (12.0-15.5) Hematocrit 23.7 % (36.0-47.0) Mean Corpuscular Volume 87 fL (79-100) Mean Corpuscular Hemoglobin 28 pg (25-35) Mean Corpuscular Hemoglobin Concent 32 g/dL (31-37) Red Cell Distribution Width 16.6 % (11.5-14.5) Platelet Count 547 x10^3/uL (140-400) Neutrophils (%) (Auto) 83 % (31-73) Lymphocytes (%) (Auto) 13 % (24-48) Monocytes (%) (Auto) 3 % (0-9) Eosinophils (%) (Auto) 0 % (0-3) Basophils (%) (Auto) 0 % (0-3) Neutrophils # (Auto) 10.7 x10^3/uL (1.8-7.7) Lymphocytes # (Auto) 1.7 x10^3/uL (1.0-4.8) Monocytes # (Auto) 0.4 x10^3/uL (0.0-1.1) Eosinophils # (Auto) 0.0 x10^3/uL (0.0-0.7) Basophils # (Auto) 0.1 x10^3/uL (0.0-0.2) Sodium Level 135 mmol/L (136-145) Potassium Level 4.9 mmol/L (3.5-5.1) Chloride Level 95 mmol/L (98-107) Carbon Dioxide Level 16 mmol/L (21-32) Anion Gap 24 (6-14) Blood Urea Nitrogen 116 mg/dL (7-20) Creatinine 4.7 mg/dL (0.6-1.0) Estimated GFR (Cockcroft-Gault) 11.4 Glucose Level 271 mg/dL (70-99) Lactic Acid Level 3.9 mmol/L (0.4-2.0) 2.8 mmol/L (0.4-2.0) Calcium Level 8.3 mg/dL (8.5-10.1) Iron Level 17 ug/dL (50-170) Total Iron Binding Capacity 216 ug/dL (250-450) Iron Saturation 8 % (15-34) Total Bilirubin 0.7 mg/dL (0.2-1.0) Direct Bilirubin 0.4 mg/dL (0.0-0.2) Aspartate Amino Transf (AST/SGOT) 204 U/L (15-37) Alanine Aminotransferase (ALT/SGPT) 159 U/L (14-59) Alkaline Phosphatase 99 U/L (46-116) Creatine Kinase 3340 U/L (26-192) Troponin I Quantitative 0.081 ng/mL (0.000-0.055) NI-Xqj-U-Type Natriuretic Peptide 587 pg/mL (0-124) Total Protein 6.4 g/dL (6.4-8.2) Albumin 1.6 g/dL (3.4-5.0) Thyroid Stimulating Hormone (TSH) 3.418 uIU/mL (0.358-3.74) Salicylates Level < 2.8 mg/dL (2.8-20.0) Salicylate Last Dose Date Unknown Salicylate Last Dose Time Unknown Acetaminophen Level < 2 mcg/ml (10-30) Acetaminophen Last Dose Date Unknown Acetaminophen Last Dose Time Unknown Acetone Level Neg (NEG) Coronavirus (COVID-19)(PCR) Negative (NEGATIVE) O2 Saturation 100 % (92-99) Arterial Blood pH 7.27 (7.35-7.45) Arterial Blood pCO2 at Patient Temp 33 mmHg (35-46) Arterial Blood pO2 at Patient Temp 249 mmHg (65-108) Arterial Blood HCO3 15 mmol/L (21-28) Arterial Blood Base Excess -11 mmol/L (-3-3) Oxyhemoglobin 98.3 % Methemoglobin 0.9 % (0.0-1.9) Carbon Monoxide, Quantitative 0.3 % (0.0-1.9) FiO2 100 Urine Collection Type U cath Urine Color Yellow Urine Clarity Turbid Urine pH 6.0 (<5.0-8.0) Urine Specific [place] 1.015 (1.000-1.030) Urine Protein 30 mg/dL (NEG-TRACE) Urine Glucose (UA) Negative mg/dL (NEG) Urine Ketones (Stick) Negative mg/dL (NEG) Urine Blood Large (NEG) Urine Nitrite Negative (NEG) Urine Bilirubin Negative (NEG) Urine Urobilinogen Dipstick 0.2 mg/dL (0.2 mg/dL) Urine Leukocyte Esterase Large (NEG) Urine RBC >40 /HPF (0-2) Urine WBC Tntc /HPF (0-4) Urine Squamous Epithelial Cells Few /LPF Urine Amorphous Sediment Present /HPF Urine Bacteria Many /HPF (0-FEW) Urine Hyaline Casts Many /HPF Urine Mucus Mod /LPF Test 03/03/21 17:10 03/03/21 19:55 03/03/21 21:50 03/03/21 22:41 Troponin I Quantitative 0.089 ng/mL (0.000-0.055) Hemoglobin 7.1 g/dL (12.0-15.5) Prothrombin Time 17.4 SEC (11.7-14.0) Prothromb Time International Ratio 1.5 (0.8-1.1) Activated Partial Thromboplast Time 38 SEC (24-38) Fibrinogen 842 mg/dL (200-440) D-Dimer (Salma) 14.05 ug/mlFEU (0.00-0.50) Stool Occult Blood Positive (NEG) Glucose (Fingerstick) 48 mg/dL (70-99) Test 03/03/21 22:57 03/04/21 04:30 03/04/21 04:36 03/04/21 04:45 Glucose (Fingerstick) 134 mg/dL (70-99) 188 mg/dL (70-99) White Blood Count 15.0 x10^3/uL (4.0-11.0) Red Blood Count 2.00 x10^6/uL (3.50-5.40) Hemoglobin 5.5 g/dL (12.0-15.5) Hematocrit 20.1 % (36.0-47.0) Mean Corpuscular Volume 101 fL (79-100) Mean Corpuscular Hemoglobin 28 pg (25-35) Mean Corpuscular Hemoglobin Concent 27 g/dL (31-37) Red Cell Distribution Width 17.9 % (11.5-14.5) Platelet Count 473 x10^3/uL (140-400) Neutrophils (%) (Auto) 82 % (31-73) Lymphocytes (%) (Auto) 15 % (24-48) Monocytes (%) (Auto) 3 % (0-9) Eosinophils (%) (Auto) 0 % (0-3) Basophils (%) (Auto) 0 % (0-3) Neutrophils # (Auto) 12.3 x10^3/uL (1.8-7.7) Lymphocytes # (Auto) 2.2 x10^3/uL (1.0-4.8) Monocytes # (Auto) 0.4 x10^3/uL (0.0-1.1) Eosinophils # (Auto) 0.0 x10^3/uL (0.0-0.7) Basophils # (Auto) 0.0 x10^3/uL (0.0-0.2) Prothrombin Time 22.5 SEC (11.7-14.0) Prothromb Time International Ratio 2.0 (0.8-1.1) Activated Partial Thromboplast Time 47 SEC (24-38) Creatine Kinase 2793 U/L (26-192) O2 Saturation 96 % (92-99) Arterial Blood pH 6.92 (7.35-7.45) Arterial Blood pCO2 at Patient Temp 24 mmHg (35-46) Arterial Blood pO2 at Patient Temp 119 mmHg (65-108) Arterial Blood HCO3 5 mmol/L (21-28) Arterial Blood Base Excess -26 mmol/L (-3-3) FiO2 40 Test 03/04/21 05:30 03/04/21 06:51 03/04/21 07:40 Sodium Level 138 mmol/L (136-145) Potassium Level 8.7 mmol/L (3.5-5.1) Chloride Level 101 mmol/L (98-107) Carbon Dioxide Level 6 mmol/L (21-32) Anion Gap 31 (6-14) Blood Urea Nitrogen 121 mg/dL (7-20) Creatinine 5.2 mg/dL (0.6-1.0) Estimated GFR (Cockcroft-Gault) 10.1 BUN/Creatinine Ratio 23 (6-20) Glucose Level 127 mg/dL (70-99) Calcium Level 7.6 mg/dL (8.5-10.1) Total Bilirubin 1.3 mg/dL (0.2-1.0) Aspartate Amino Transf (AST/SGOT) 4358 U/L (15-37) Alanine Aminotransferase (ALT/SGPT) 2494 U/L (14-59) Alkaline Phosphatase 98 U/L (46-116) Total Protein 5.6 g/dL (6.4-8.2) Albumin 1.1 g/dL (3.4-5.0) Albumin/Globulin Ratio 0.2 (1.0-1.7) Glucose (Fingerstick) 85 mg/dL (70-99) O2 Saturation 95 % (92-99) Arterial Blood pH 7.10 (7.35-7.45) Arterial Blood pCO2 at Patient Temp 22 mmHg (35-46) Arterial Blood pO2 at Patient Temp 107 mmHg (65-108) Arterial Blood HCO3 7 mmol/L (21-28) Arterial Blood Base Excess -21 mmol/L (-3-3) FiO2 40%+% Laboratory Tests Test 03/03/21 10:40 03/03/21 11:10 03/03/21 13:35 03/03/21 14:10 White Blood Count 12.9 x10^3/uL (4.0-11.0) Red Blood Count 2.72 x10^6/uL (3.50-5.40) Hemoglobin 7.7 g/dL (12.0-15.5) Hematocrit 23.7 % (36.0-47.0) Mean Corpuscular Volume 87 fL (79-100) Mean Corpuscular Hemoglobin 28 pg (25-35) Mean Corpuscular Hemoglobin Concent 32 g/dL (31-37) Red Cell Distribution Width 16.6 % (11.5-14.5) Platelet Count 547 x10^3/uL (140-400) Neutrophils (%) (Auto) 83 % (31-73) Lymphocytes (%) (Auto) 13 % (24-48) Monocytes (%) (Auto) 3 % (0-9) Eosinophils (%) (Auto) 0 % (0-3) Basophils (%) (Auto) 0 % (0-3) Neutrophils # (Auto) 10.7 x10^3/uL (1.8-7.7) Lymphocytes # (Auto) 1.7 x10^3/uL (1.0-4.8) Monocytes # (Auto) 0.4 x10^3/uL (0.0-1.1) Eosinophils # (Auto) 0.0 x10^3/uL (0.0-0.7) Basophils # (Auto) 0.1 x10^3/uL (0.0-0.2) Sodium Level 135 mmol/L (136-145) Potassium Level 4.9 mmol/L (3.5-5.1) Chloride Level 95 mmol/L (98-107) Carbon Dioxide Level 16 mmol/L (21-32) Anion Gap 24 (6-14) Blood Urea Nitrogen 116 mg/dL (7-20) Creatinine 4.7 mg/dL (0.6-1.0) Estimated GFR (Cockcroft-Gault) 11.4 Glucose Level 271 mg/dL (70-99) Lactic Acid Level 3.9 mmol/L (0.4-2.0) 2.8 mmol/L (0.4-2.0) Calcium Level 8.3 mg/dL (8.5-10.1) Iron Level 17 ug/dL (50-170) Total Iron Binding Capacity 216 ug/dL (250-450) Iron Saturation 8 % (15-34) Total Bilirubin 0.7 mg/dL (0.2-1.0) Direct Bilirubin 0.4 mg/dL (0.0-0.2) Aspartate Amino Transf (AST/SGOT) 204 U/L (15-37) Alanine Aminotransferase (ALT/SGPT) 159 U/L (14-59) Alkaline Phosphatase 99 U/L (46-116) Creatine Kinase 3340 U/L (26-192) Troponin I Quantitative 0.081 ng/mL (0.000-0.055) GL-Nha-G-Type Natriuretic Peptide 587 pg/mL (0-124) Total Protein 6.4 g/dL (6.4-8.2) Albumin 1.6 g/dL (3.4-5.0) Thyroid Stimulating Hormone (TSH) 3.418 uIU/mL (0.358-3.74) Salicylates Level < 2.8 mg/dL (2.8-20.0) Salicylate Last Dose Date Unknown Salicylate Last Dose Time Unknown Acetaminophen Level < 2 mcg/ml (10-30) Acetaminophen Last Dose Date Unknown Acetaminophen Last Dose Time Unknown Acetone Level Neg (NEG) Coronavirus (COVID-19)(PCR) Negative (NEGATIVE) O2 Saturation 100 % (92-99) Arterial Blood pH 7.27 (7.35-7.45) Arterial Blood pCO2 at Patient Temp 33 mmHg (35-46) Arterial Blood pO2 at Patient Temp 249 mmHg (65-108) Arterial Blood HCO3 15 mmol/L (21-28) Arterial Blood Base Excess -11 mmol/L (-3-3) Oxyhemoglobin 98.3 % Methemoglobin 0.9 % (0.0-1.9) Carbon Monoxide, Quantitative 0.3 % (0.0-1.9) FiO2 100 Urine Collection Type U cath Urine Color Yellow Urine Clarity Turbid Urine pH 6.0 (<5.0-8.0) Urine Specific [place] 1.015 (1.000-1.030) Urine Protein 30 mg/dL (NEG-TRACE) Urine Glucose (UA) Negative mg/dL (NEG) Urine Ketones (Stick) Negative mg/dL (NEG) Urine Blood Large (NEG) Urine Nitrite Negative (NEG) Urine Bilirubin Negative (NEG) Urine Urobilinogen Dipstick 0.2 mg/dL (0.2 mg/dL) Urine Leukocyte Esterase Large (NEG) Urine RBC >40 /HPF (0-2) Urine WBC Tntc /HPF (0-4) Urine Squamous Epithelial Cells Few /LPF Urine Amorphous Sediment Present /HPF Urine Bacteria Many /HPF (0-FEW) Urine Hyaline Casts Many /HPF Urine Mucus Mod /LPF Test 03/03/21 17:10 03/03/21 19:55 03/03/21 21:50 03/03/21 22:41 Troponin I Quantitative 0.089 ng/mL (0.000-0.055) Hemoglobin 7.1 g/dL (12.0-15.5) Prothrombin Time 17.4 SEC (11.7-14.0) Prothromb Time International Ratio 1.5 (0.8-1.1) Activated Partial Thromboplast Time 38 SEC (24-38) Fibrinogen 842 mg/dL (200-440) D-Dimer (Aslma) 14.05 ug/mlFEU (0.00-0.50) Stool Occult Blood Positive (NEG) Glucose (Fingerstick) 48 mg/dL (70-99) Test 03/03/21 22:57 03/04/21 04:30 03/04/21 04:36 03/04/21 04:45 Glucose (Fingerstick) 134 mg/dL (70-99) 188 mg/dL (70-99) White Blood Count 15.0 x10^3/uL (4.0-11.0) Red Blood Count 2.00 x10^6/uL (3.50-5.40) Hemoglobin 5.5 g/dL (12.0-15.5) Hematocrit 20.1 % (36.0-47.0) Mean Corpuscular Volume 101 fL (79-100) Mean Corpuscular Hemoglobin 28 pg (25-35) Mean Corpuscular Hemoglobin Concent 27 g/dL (31-37) Red Cell Distribution Width 17.9 % (11.5-14.5) Platelet Count 473 x10^3/uL (140-400) Neutrophils (%) (Auto) 82 % (31-73) Lymphocytes (%) (Auto) 15 % (24-48) Monocytes (%) (Auto) 3 % (0-9) Eosinophils (%) (Auto) 0 % (0-3) Basophils (%) (Auto) 0 % (0-3) Neutrophils # (Auto) 12.3 x10^3/uL (1.8-7.7) Lymphocytes # (Auto) 2.2 x10^3/uL (1.0-4.8) Monocytes # (Auto) 0.4 x10^3/uL (0.0-1.1) Eosinophils # (Auto) 0.0 x10^3/uL (0.0-0.7) Basophils # (Auto) 0.0 x10^3/uL (0.0-0.2) Prothrombin Time 22.5 SEC (11.7-14.0) Prothromb Time International Ratio 2.0 (0.8-1.1) Activated Partial Thromboplast Time 47 SEC (24-38) Creatine Kinase 2793 U/L (26-192) O2 Saturation 96 % (92-99) Arterial Blood pH 6.92 (7.35-7.45) Arterial Blood pCO2 at Patient Temp 24 mmHg (35-46) Arterial Blood pO2 at Patient Temp 119 mmHg (65-108) Arterial Blood HCO3 5 mmol/L (21-28) Arterial Blood Base Excess -26 mmol/L (-3-3) FiO2 40 Test 03/04/21 05:30 03/04/21 06:51 03/04/21 07:40 Sodium Level 138 mmol/L (136-145) Potassium Level 8.7 mmol/L (3.5-5.1) Chloride Level 101 mmol/L (98-107) Carbon Dioxide Level 6 mmol/L (21-32) Anion Gap 31 (6-14) Blood Urea Nitrogen 121 mg/dL (7-20) Creatinine 5.2 mg/dL (0.6-1.0) Estimated GFR (Cockcroft-Gault) 10.1 BUN/Creatinine Ratio 23 (6-20) Glucose Level 127 mg/dL (70-99) Calcium Level 7.6 mg/dL (8.5-10.1) Total Bilirubin 1.3 mg/dL (0.2-1.0) Aspartate Amino Transf (AST/SGOT) 4358 U/L (15-37) Alanine Aminotransferase (ALT/SGPT) 2494 U/L (14-59) Alkaline Phosphatase 98 U/L (46-116) Total Protein 5.6 g/dL (6.4-8.2) Albumin 1.1 g/dL (3.4-5.0) Albumin/Globulin Ratio 0.2 (1.0-1.7) Glucose (Fingerstick) 85 mg/dL (70-99) O2 Saturation 95 % (92-99) Arterial Blood pH 7.10 (7.35-7.45) Arterial Blood pCO2 at Patient Temp 22 mmHg (35-46) Arterial Blood pO2 at Patient Temp 107 mmHg (65-108) Arterial Blood HCO3 7 mmol/L (21-28) Arterial Blood Base Excess -21 mmol/L (-3-3) FiO2 40%+% Review All relevant outside records, renal labs, imaging studies, telemetry/EKG's were reviewed. Images Images EXAM: CHEST ONE VIEW. HISTORY: Line placement. COMPARISON: 03/03/2021. FINDINGS: A frontal view of the chest is obtained. An endotracheal tube has its tip 7 cm above the ruel. Right internal jugular central venous and hemodialysis catheters have their tips in the superior vena cava. A right arm PICC line also has its tip in the superior vena cava. A nasogastric tube has its proximal sidehole at the gastroesophageal junction, recommend advancement. Surgical clips project in the left upper quadrant. Retrocardiac opacities have increased. Small left pleural effusion cannot be excluded. There is no pneumothorax. The heart is not enlarged. There are atherosclerotic calcifications of the aorta. IMPRESSION: 1. Recommend advancement of the nasogastric tube by 8-10 cm. 2. Increased retrocardiac atelectasis or infiltrate. Pulmonary edema has improved. EXAM: Head CT without contrast. HISTORY: Altered mental status. TECHNIQUE: Computed tomographic images of the head were obtained without contrast. *One or more of the following individualized dose reduction techniques were utilized for this examination: 1. Automated exposure control. 2. Adjustment of the mA and/or kV according to patient size. 3. Use of iterative reconstruction technique. COMPARISON: 04/16/2017. FINDINGS: There is no acute or subacute extra-axial or intraparenchymal hemorrhage. There is no mass effect or midline shift. There is no hydrocephalus. There are extensive areas of hypodensity throughout the cerebral white matter, most commonly due to chronic small vessel disease. This is advanced for patient age. There are multiple chronic appearing lacunar infarcts within the left greater than right basal ganglia and lateral thalami. There is cerebral volume loss. The visualized portions of the orbits, paranasal sinuses and mastoid air cells are unremarkable. No suspicious calvarial lesion is seen. IMPRESSION: 1. Extensive white matter changes, most commonly due to chronic small vessel disease. This is advanced for patient age. There is also cerebral volume loss which is advanced for patient age. 2. Chronic infarcts within the bilateral basal ganglia and thalami. 3. Note is made that MRI is more sensitive for acute infarction. MIKAEL CRAWFORD MD Mar 04, 2021 09:33
[2021-03-04] MEDS: POTASSIUM CHLORIDE 10 MEQ in DIALYSIS SOLUTION BGK 0/2.5 5,000 ML IV SCH ×11 (10:00→22:33)
--- NOTE | 2021-03-04 10:26 | PDOC2 ---
BHARTI GARCIA DIRECTOR ASSET 03/04/21 1026: CARDIAC CONSULT DATE OF CONSULT Date of Consult DATE: 03/04/21 TIME: 10:14 REASON FOR CONSULT Reason for Consult: NSTEMI REFERRING PHYSICIAN Referring Physician: Dr. Leon SOURCE Source: Chart review HISTORY OF PRESENT ILLNESS HISTORY OF PRESENT ILLNESS This is a 61 yo female who presented from half-way secondary to shortness of breath and hypoxia. Troponin noted to be mildly elevated, which prompted this consult. Labs notable for multisystem failure. Required intubated due to respiratory failure. PAST MEDICAL HISTORY Cardiovascular: HTN, Hyperlipidemia CENTRAL NERVOUS SYSTEM: CVA GI: Other (Dysphagia s/p PEG ) Musculoskeletal: Osteoarthritis Renal/: Other (neurogenic bladder) PAST SURGICAL HISTORY Past Surgical History: Other (PEG ) FAMILY HISTORY Family History: Heart Disease, Hypertension SOCIAL HISTORY Smoke: Quit ALCOHOL: none Drugs: None Lives: Group Home CURRENT MEDICATIONS CURRENT MEDICATIONS Current Medications Medications (Trade) Dose Ordered Sig/Trevin Route PRN Reason Start Time Stop Time Status Last Admin Dose Admin Sodium Chloride 1,000 ml @ 1,000 mls/hr Q1H IV 03/03/21 11:00 03/03/21 11:59 DC 03/03/21 12:17 Aztreonam (Azactam) 2 gm 1X ONCE IVP 03/03/21 11:00 03/03/21 11:01 DC 03/03/21 12:17 Metronidazole 100 ml @ 100 mls/hr 1X ONCE IV 03/03/21 11:00 03/03/21 11:59 DC 03/03/21 12:17 Vancomycin HCl (Vanco Per Pharmacy) 1 each PRN DAILY PRN MC SEE COMMENTS 03/03/21 10:45 03/04/21 07:49 DC 03/04/21 07:46 Etomidate (Amidate) 20 mg 1X ONCE IV 03/03/21 11:00 03/03/21 11:01 DC 03/03/21 10:53 Rocuronium [place] (Zemuron) 100 mg 1X ONCE IV 03/03/21 11:00 03/03/21 11:01 DC 03/03/21 10:52 Sodium Chloride 1,000 ml @ 1,000 mls/hr 1X ONCE IV 03/03/21 11:30 03/03/21 12:29 DC 03/03/21 13:00 Vancomycin HCl 1.75 gm/Sodium Chloride 500 ml @ 250 mls/hr 1X ONCE IV 03/03/21 12:30 03/03/21 14:29 DC 03/03/21 13:41 Aztreonam (Azactam) 1 gm Q8HRS IVP 03/03/21 22:00 03/04/21 07:50 DC 03/04/21 06:26 Fentanyl Citrate 30 ml @ 0 mls/hr CONT PRN IV SEE PROTOCOL 03/03/21 12:00 03/03/21 13:49 Midazolam HCl 100 ml @ 0 mls/hr CONT PRN IV SEE PROTOCOL 03/03/21 12:00 03/03/21 13:49 Famotidine (Pepcid Vial) 20 mg QHS IVP 03/03/21 21:00 03/03/21 21:24 Heparin Sodium (Porcine) (Heparin Sodium) 5,000 unit Q8HRS SQ 03/03/21 15:00 03/03/21 22:04 Sodium Chloride 1,000 ml @ 80 mls/hr [id number] IV 03/03/21 14:30 03/03/21 16:26 Norepinephrine Bitartrate 8 mg/ Dextrose 258 ml @ 0 mls/hr CONT PRN IV SEE I/O RECORD 03/03/21 19:00 03/04/21 05:32 Dextrose (Dextrose 50%-Water Syringe) 12.5 gm PRN Q15MIN PRN IV SEE COMMENTS 03/03/21 22:45 03/04/21 04:35 Vasopressin 20 unit/Dextrose 101 ml @ 12 mls/hr CONT PRN IV SEE I/O RECORD 03/03/21 23:15 03/04/21 07:25 Sodium Bicarbonate (Sodium Bicarb Adult 8.4% Syr) 150 meq 1X ONCE IV 03/04/21 06:00 03/04/21 06:01 DC 03/04/21 05:47 Calcium Gluconate (Calcium Gluconate) 1,000 mg 1X ONCE IVP 03/04/21 06:00 03/04/21 06:01 DC 03/04/21 05:47 Sodium Bicarbonate 150 meq/Dextrose 1,150 ml @ 100 mls/hr [id number] IV 03/04/21 06:00 03/04/21 06:12 Sodium Bicarbonate (Sodium Bicarb Adult 8.4% Syr) 100 meq 1X ONCE IV 03/04/21 08:00 03/04/21 08:01 DC 03/04/21 08:06 ALLERGIES ALLERGIES: Coded Allergies: Penicillins (Verified Allergy, Intermediate, RASH, 03/03/21) ROS Review of System unobtainable PHYSICAL EXAM General: Other (mild sedation ) HEENT: Atraumatic, Mucous membr. moist/pink Lungs: Other (mechanical vent ) Heart: Regular rate Abdomen: Soft Extremities: No edema Skin: Other (warm, dry ) Neuro: Other (mild sedation ) Psych/Mental Status: Other (unable to assess ) MUSCULOSKELETAL: Osteoarthritic changes both hands VITALS/I&O VITALS/I&O: Vital Signs Date Time Temp Pulse Resp B/P (MAP) Pulse Ox O2 Delivery O2 Flow Rate FiO2 03/04/21 10:02 104 28 118/72 (87) 99 Ventilator 03/04/21 09:30 98.5 98.5 I & O 03/03/21 03/03/21 03/04/21 15:00 23:00 07:00 Intake Total 1100 ml 507 ml 1531.29 ml Output Total 425 ml 145 ml 0 ml Balance 675 ml 362 ml 1531.29 ml LABS Lab: Laboratory Tests Test 03/03/21 10:40 03/03/21 11:10 03/03/21 13:35 03/03/21 14:10 White Blood Count 12.9 x10^3/uL (4.0-11.0) H Red Blood Count 2.72 x10^6/uL (3.50-5.40) L Hemoglobin 7.7 g/dL (12.0-15.5) L Hematocrit 23.7 % (36.0-47.0) L Mean Corpuscular Volume 87 fL (79-100) Mean Corpuscular Hemoglobin 28 pg (25-35) Mean Corpuscular Hemoglobin Concent 32 g/dL (31-37) Red Cell Distribution Width 16.6 % (11.5-14.5) H Platelet Count 547 x10^3/uL (140-400) H Neutrophils (%) (Auto) 83 % (31-73) H Lymphocytes (%) (Auto) 13 % (24-48) L Monocytes (%) (Auto) 3 % (0-9) Eosinophils (%) (Auto) 0 % (0-3) Basophils (%) (Auto) 0 % (0-3) Neutrophils # (Auto) 10.7 x10^3/uL (1.8-7.7) H Lymphocytes # (Auto) 1.7 x10^3/uL (1.0-4.8) Monocytes # (Auto) 0.4 x10^3/uL (0.0-1.1) Eosinophils # (Auto) 0.0 x10^3/uL (0.0-0.7) Basophils # (Auto) 0.1 x10^3/uL (0.0-0.2) Sodium Level 135 mmol/L (136-145) L Potassium Level 4.9 mmol/L (3.5-5.1) Chloride Level 95 mmol/L (98-107) L Carbon Dioxide Level 16 mmol/L (21-32) L Anion Gap 24 (6-14) H Blood Urea Nitrogen 116 mg/dL (7-20) H Creatinine 4.7 mg/dL (0.6-1.0) H Estimated GFR (Cockcroft-Gault) 11.4 Glucose Level 271 mg/dL (70-99) H Lactic Acid Level 3.9 mmol/L (0.4-2.0) H 2.8 mmol/L (0.4-2.0) H Calcium Level 8.3 mg/dL (8.5-10.1) L Iron Level 17 ug/dL (50-170) L Total Iron Binding Capacity 216 ug/dL (250-450) L Iron Saturation 8 % (15-34) L Total Bilirubin 0.7 mg/dL (0.2-1.0) Direct Bilirubin 0.4 mg/dL (0.0-0.2) H Aspartate Amino Transferase (AST) 204 U/L (15-37) H Alanine Aminotransferase (ALT) 159 U/L (14-59) H Alkaline Phosphatase 99 U/L (46-116) Creatine Kinase 3340 U/L (26-192) H Troponin I Quantitative 0.081 ng/mL (0.000-0.055) SP-Xem-R-Type Natriuretic Peptide 587 pg/mL (0-124) H Total Protein 6.4 g/dL (6.4-8.2) Albumin 1.6 g/dL (3.4-5.0) L Vitamin B12 Level 551 pg/mL (247-911) Thyroid Stimulating Hormone (TSH) 3.418 uIU/mL (0.358-3.74) Salicylates Level < 2.8 mg/dL (2.8-20.0) L Salicylate Last Dose Date Unknown Salicylate Last Dose Time Unknown Acetaminophen Level < 2 mcg/ml (10-30) L Acetaminophen Last Dose Date Unknown Acetaminophen Last Dose Time Unknown Acetone Level Neg (NEG) SARS-CoV-2 (PCR) Negative (NEGATIVE) O2 Saturation 100 % (92-99) H Arterial Blood pH 7.27 (7.35-7.45) L Arterial Blood pCO2 at Patient Temp 33 mmHg (35-46) L Arterial Blood pO2 at Patient Temp 249 mmHg (65-108) H Arterial Blood HCO3 15 mmol/L (21-28) L Arterial Blood Base Excess -11 mmol/L (-3-3) L Oxyhemoglobin 98.3 % Methemoglobin 0.9 % (0.0-1.9) Carbon Monoxide, Quantitative 0.3 % (0.0-1.9) FiO2 100 Urine Collection Type U cath Urine Color Yellow Urine Clarity Turbid Urine pH 6.0 (<5.0-8.0) Urine Specific [place] 1.015 (1.000-1.030) Urine Protein 30 mg/dL (NEG-TRACE) Urine Glucose (UA) Negative mg/dL (NEG) Urine Ketones (Stick) Negative mg/dL (NEG) Urine Blood Large (NEG) Urine Nitrite Negative (NEG) Urine Bilirubin Negative (NEG) Urine Urobilinogen Dipstick 0.2 mg/dL (0.2 mg/dL) Urine Leukocyte Esterase Large (NEG) Urine RBC >40 /HPF (0-2) Urine WBC Tntc /HPF (0-4) Urine Squamous Epithelial Cells Few /LPF Urine Amorphous Sediment Present /HPF Urine Bacteria Many /HPF (0-FEW) Urine Hyaline Casts Many /HPF Urine Mucus Mod /LPF Test 03/03/21 17:10 03/03/21 19:55 03/03/21 21:50 03/03/21 22:41 Troponin I Quantitative 0.089 ng/mL (0.000-0.055) Hemoglobin 7.1 g/dL (12.0-15.5) L Prothrombin Time 17.4 SEC (11.7-14.0) H Prothrombin Time INR 1.5 (0.8-1.1) H Activated Partial Thromboplast Time 38 SEC (24-38) Fibrinogen 842 mg/dL (200-440) H D-Dimer (Salma) 14.05 ug/mlFEU (0.00-0.50) H Procalcitonin 20.10 ng/mL (0.00-0.10) H Stool Occult Blood Positive (NEG) Glucose (Fingerstick) 48 mg/dL (70-99) *L Test 03/03/21 22:57 03/04/21 04:30 03/04/21 04:36 03/04/21 04:45 Glucose (Fingerstick) 134 mg/dL (70-99) H 188 mg/dL (70-99) H White Blood Count 15.0 x10^3/uL (4.0-11.0) H Red Blood Count 2.00 x10^6/uL (3.50-5.40) L Hemoglobin 5.5 g/dL (12.0-15.5) *L Hematocrit 20.1 % (36.0-47.0) *L Mean Corpuscular Volume 101 fL (79-100) #H Mean Corpuscular Hemoglobin 28 pg (25-35) Mean Corpuscular Hemoglobin Concent 27 g/dL (31-37) L Red Cell Distribution Width 17.9 % (11.5-14.5) H Platelet Count 473 x10^3/uL (140-400) H Neutrophils (%) (Auto) 82 % (31-73) H Lymphocytes (%) (Auto) 15 % (24-48) L Monocytes (%) (Auto) 3 % (0-9) Eosinophils (%) (Auto) 0 % (0-3) Basophils (%) (Auto) 0 % (0-3) Neutrophils # (Auto) 12.3 x10^3/uL (1.8-7.7) H Lymphocytes # (Auto) 2.2 x10^3/uL (1.0-4.8) Monocytes # (Auto) 0.4 x10^3/uL (0.0-1.1) Eosinophils # (Auto) 0.0 x10^3/uL (0.0-0.7) Basophils # (Auto) 0.0 x10^3/uL (0.0-0.2) Prothrombin Time 22.5 SEC (11.7-14.0) H Prothrombin Time INR 2.0 (0.8-1.1) H Activated Partial Thromboplast Time 47 SEC (24-38) H Creatine Kinase 2793 U/L (26-192) H O2 Saturation 96 % (92-99) Arterial Blood pH 6.92 (7.35-7.45) *L Arterial Blood pCO2 at Patient Temp 24 mmHg (35-46) L Arterial Blood pO2 at Patient Temp 119 mmHg (65-108) H Arterial Blood HCO3 5 mmol/L (21-28) L Arterial Blood Base Excess -26 mmol/L (-3-3) L FiO2 40 Test 03/04/21 05:30 03/04/21 06:51 03/04/21 07:40 Sodium Level 138 mmol/L (136-145) Potassium Level 8.7 mmol/L (3.5-5.1) #*H Chloride Level 101 mmol/L (98-107) Carbon Dioxide Level 6 mmol/L (21-32) *L Anion Gap 31 (6-14) H Blood Urea Nitrogen 121 mg/dL (7-20) H Creatinine 5.2 mg/dL (0.6-1.0) H Estimated GFR (Cockcroft-Gault) 10.1 BUN/Creatinine Ratio 23 (6-20) H Glucose Level 127 mg/dL (70-99) H Calcium Level 7.6 mg/dL (8.5-10.1) L Total Bilirubin 1.3 mg/dL (0.2-1.0) H Aspartate Amino Transferase (AST) 4358 U/L (15-37) H Alanine Aminotransferase (ALT) 2494 U/L (14-59) H Alkaline Phosphatase 98 U/L (46-116) Total Protein 5.6 g/dL (6.4-8.2) L Albumin 1.1 g/dL (3.4-5.0) L Albumin/Globulin Ratio 0.2 (1.0-1.7) L Glucose (Fingerstick) 85 mg/dL (70-99) O2 Saturation 95 % (92-99) Arterial Blood pH 7.10 (7.35-7.45) *L Arterial Blood pCO2 at Patient Temp 22 mmHg (35-46) L Arterial Blood pO2 at Patient Temp 107 mmHg (65-108) Arterial Blood HCO3 7 mmol/L (21-28) L Arterial Blood Base Excess -21 mmol/L (-3-3) L FiO2 40%+% Laboratory Tests 03/03/21 10:40 03/03/21 19:55 03/04/21 04:30 Laboratory Tests 03/03/21 10:40 03/04/21 05:30 ASSESSMENT/PLAN ASSESSMENT/PLAN 1. Acute respiratory failure s/p intubation 2. LATHA, hyperkalemia; on CRRT 3. Metabolic acidosis 4. Leukocytosis, fevers, sepsis 5. Profound anemia, iron deficient; hgb drift to 5.5. To be transfused 6. Mild troponin elevation; highest 0.089. Most probably type II, demand ischemia secondary to above 7. H/o hypertension with present hypotension; requiring pressor support 8. Hyperlipidemia 9. H/o CVA with right hemiparesis. 10. Dysphagia s/p PEG 11. Neurogenic bladder with chronic Uriostegui. UA with UTI 12. Transaminitis 13. Coagulopathy; INR 2 14. Rhabdomyolysis Recommendations EKG now Echo to assess LV systolic function Pressor support as warranted No ASA, AC with coagulopathy, anemia Follow cultures Supportive care from a CV standpoint SABIHA ISAACS MD 03/04/21 1639: CARDIAC CONSULT ASSESSMENT/PLAN ASSESSMENT/PLAN The patient was seen and interviewed as well as examined at the bedside. The chart was reviewed. The case was discussed. Agree with the plan of care. BHARTI GARCIA APRN Mar 04, 2021 10:26 SABIHA ISAACS MD Mar 04, 2021 16:39
--- NOTE | 2021-03-04 11:03 | PDOC ---
[employer] PROGRESS NOTE Date of Service DOS: DATE: 03/04/21 TIME: 10:57 Chief Complaint Chief Complaint Acute respiratory failure with hypoxia requiring vent support Suspected right lower lobe predominant interstitial infiltrate. suspect aspiration pneumonia, gram neg, gram pos Person under investigation for COVID-19 Multiorgan failure Rhabdomyolysis CPK 3340 LATHA prob pyelonephritis with acute renal tube nephro-necrosis Altered mental status Extensive white matter changes, most commonly due to chronic small vessel disease. This is advanced for patient age. There is also cerebral volume loss which is advanced for patient age.Chronic infarcts within the bilateral basal ganglia and thalami. LACTIC ACIDOSIS SEPSIS prob pyelonephritis with acute renal tube nephro-necrosis / ATN NORMOCYTIC ANEMIA marked change since 2017 Stage IV sacral pressure ulcer, present on admission plan ADMITTED icu bed pulm consult vent support Nephrology consult ID CONSULT emperic iv antibiotics FE PANEL Neurology consult DVT PROPHYLAXIS GI prophylaxis GI CONSULT guiac stools History of Present Illness History of Present Illness 61 -year-old -Spanish woman with past medical history of hypertension, CVA and right-sided weakness, who presented to the Emergency Room HX Cerebrovascular accident with residual spastic right hemiparesis required vent support in ER, unable to maintain airway , labs c/w multiorgan failure, sepsis Suspected right lower lobe predominant interstitial infiltrate. suspect aspiration pneumonia, gram neg, gram pos //under investigation for COVID-19 Multiorgan failure due to sepsis Rhabdomyolysis LATHA, due to sepsis Altered mental status , UNABLE to maintain airway // right hemiparesis // prob pyelonephritis with acute renal tube nephro-necrosis ct head Extensive white matter changes, chronic small vessel disease.advanced for patient age. cerebral volume loss advanced for patient age. Chronic infarcts within the bilateral basal ganglia and thalami. Suspected right lower lobe predominant interstitial infiltrate. suspect aspiration pneumonia, gram neg, gram pos // Person under investigation for COVID-19 plan== icu bed //pulm consult / vent support/ Nephrology consult //ID CONSULT /emperic iv antibiotics / FE PANEL //Neurology consult // DVT PROPHYLAXIS 03/04/2021: Afebrile, tachycardic. On ventilator with FiO2 40%, PEEP 5. FOBT positive. Hb 7.1 yesterday, Hb 5.5 today; will transfuse. Per neurology, treat medical issues and hold off on umbar puncture, MRI, or EEG. Receiving hemodialysis and ICU today. Patient currently requiring Levophed and vasopressin. Continue daptomycin and cefepime, per ID. 30 minutes critical care time spent reviewing charts, reviewing labs, reviewing imaging, and discussing with RN. Vitals/I&O Vitals/I&O: Vital Signs Date Time Temp Pulse Resp B/P (MAP) Pulse Ox O2 Delivery O2 Flow Rate FiO2 03/04/21 10:02 104 28 118/72 (87) 99 Ventilator 03/04/21 09:30 98.5 98.5 I & O 03/03/21 03/03/21 03/04/21 15:00 23:00 07:00 Intake Total 1100 ml 507 ml 1531.29 ml Output Total 425 ml 145 ml 0 ml Balance 675 ml 362 ml 1531.29 ml Physical Exam General: Other (Sedated and intubated) Heart: Normal S1, Normal S2, Other (Tachycardic) Lungs: Clear Abdomen: Soft, No hepatosplenomegaly, Other (Decreased bowel sounds) Extremities: No cyanosis Skin: No rashes, No significant lesion Labs Labs: Laboratory Tests Test 03/03/21 11:10 03/03/21 13:35 03/03/21 14:10 03/03/21 17:10 O2 Saturation 100 % (92-99) Arterial Blood pH 7.27 (7.35-7.45) Arterial Blood pCO2 at Patient Temp 33 mmHg (35-46) Arterial Blood pO2 at Patient Temp 249 mmHg (65-108) Arterial Blood HCO3 15 mmol/L (21-28) Arterial Blood Base Excess -11 mmol/L (-3-3) Oxyhemoglobin 98.3 % Methemoglobin 0.9 % (0.0-1.9) Carbon Monoxide, Quantitative 0.3 % (0.0-1.9) FiO2 100 Urine Collection Type U cath Urine Color Yellow Urine Clarity Turbid Urine pH 6.0 (<5.0-8.0) Urine Specific [place] 1.015 (1.000-1.030) Urine Protein 30 mg/dL (NEG-TRACE) Urine Glucose (UA) Negative mg/dL (NEG) Urine Ketones (Stick) Negative mg/dL (NEG) Urine Blood Large (NEG) Urine Nitrite Negative (NEG) Urine Bilirubin Negative (NEG) Urine Urobilinogen Dipstick 0.2 mg/dL (0.2 mg/dL) Urine Leukocyte Esterase Large (NEG) Urine RBC >40 /HPF (0-2) Urine WBC Tntc /HPF (0-4) Urine Squamous Epithelial Cells Few /LPF Urine Amorphous Sediment Present /HPF Urine Bacteria Many /HPF (0-FEW) Urine Hyaline Casts Many /HPF Urine Mucus Mod /LPF Lactic Acid Level 2.8 mmol/L (0.4-2.0) Troponin I Quantitative 0.089 ng/mL (0.000-0.055) Test 03/03/21 19:55 03/03/21 21:50 03/03/21 22:41 03/03/21 22:57 Hemoglobin 7.1 g/dL (12.0-15.5) Prothrombin Time 17.4 SEC (11.7-14.0) Prothromb Time International Ratio 1.5 (0.8-1.1) Activated Partial Thromboplast Time 38 SEC (24-38) Fibrinogen 842 mg/dL (200-440) D-Dimer (Salma) 14.05 ug/mlFEU (0.00-0.50) Procalcitonin 20.10 ng/mL (0.00-0.10) Stool Occult Blood Positive (NEG) Glucose (Fingerstick) 48 mg/dL (70-99) 134 mg/dL (70-99) Test 03/04/21 04:30 03/04/21 04:36 03/04/21 04:45 03/04/21 05:30 White Blood Count 15.0 x10^3/uL (4.0-11.0) Red Blood Count 2.00 x10^6/uL (3.50-5.40) Hemoglobin 5.5 g/dL (12.0-15.5) Hematocrit 20.1 % (36.0-47.0) Mean Corpuscular Volume 101 fL (79-100) Mean Corpuscular Hemoglobin 28 pg (25-35) Mean Corpuscular Hemoglobin Concent 27 g/dL (31-37) Red Cell Distribution Width 17.9 % (11.5-14.5) Platelet Count 473 x10^3/uL (140-400) Neutrophils (%) (Auto) 82 % (31-73) Lymphocytes (%) (Auto) 15 % (24-48) Monocytes (%) (Auto) 3 % (0-9) Eosinophils (%) (Auto) 0 % (0-3) Basophils (%) (Auto) 0 % (0-3) Neutrophils # (Auto) 12.3 x10^3/uL (1.8-7.7) Lymphocytes # (Auto) 2.2 x10^3/uL (1.0-4.8) Monocytes # (Auto) 0.4 x10^3/uL (0.0-1.1) Eosinophils # (Auto) 0.0 x10^3/uL (0.0-0.7) Basophils # (Auto) 0.0 x10^3/uL (0.0-0.2) Prothrombin Time 22.5 SEC (11.7-14.0) Prothromb Time International Ratio 2.0 (0.8-1.1) Activated Partial Thromboplast Time 47 SEC (24-38) Creatine Kinase 2793 U/L (26-192) O2 Saturation 96 % (92-99) Arterial Blood pH 6.92 (7.35-7.45) Arterial Blood pCO2 at Patient Temp 24 mmHg (35-46) Arterial Blood pO2 at Patient Temp 119 mmHg (65-108) Arterial Blood HCO3 5 mmol/L (21-28) Arterial Blood Base Excess -26 mmol/L (-3-3) FiO2 40 Glucose (Fingerstick) 188 mg/dL (70-99) Sodium Level 138 mmol/L (136-145) Potassium Level 8.7 mmol/L (3.5-5.1) Chloride Level 101 mmol/L (98-107) Carbon Dioxide Level 6 mmol/L (21-32) Anion Gap 31 (6-14) Blood Urea Nitrogen 121 mg/dL (7-20) Creatinine 5.2 mg/dL (0.6-1.0) Estimated GFR (Cockcroft-Gault) 10.1 BUN/Creatinine Ratio 23 (6-20) Glucose Level 127 mg/dL (70-99) Calcium Level 7.6 mg/dL (8.5-10.1) Total Bilirubin 1.3 mg/dL (0.2-1.0) Aspartate Amino Transf (AST/SGOT) 4358 U/L (15-37) Alanine Aminotransferase (ALT/SGPT) 2494 U/L (14-59) Alkaline Phosphatase 98 U/L (46-116) Total Protein 5.6 g/dL (6.4-8.2) Albumin 1.1 g/dL (3.4-5.0) Albumin/Globulin Ratio 0.2 (1.0-1.7) Test 03/04/21 06:51 03/04/21 07:40 Glucose (Fingerstick) 85 mg/dL (70-99) O2 Saturation 95 % (92-99) Arterial Blood pH 7.10 (7.35-7.45) Arterial Blood pCO2 at Patient Temp 22 mmHg (35-46) Arterial Blood pO2 at Patient Temp 107 mmHg (65-108) Arterial Blood HCO3 7 mmol/L (21-28) Arterial Blood Base Excess -21 mmol/L (-3-3) FiO2 40%+% Assessment and Plan Assessmemt and Plan Problems Medical Problems: (1) Acute respiratory failure with hypoxia Status: Acute (2) Multiorgan failure Status: Acute (3) Person under investigation for COVID-19 Status: Acute (4) Pneumonia Status: Acute (5) Rhabdomyolysis Status: Acute Comment Review of Relevant I have reviewed the following items tanisha (where applicable) has been applied. Medications: Current Medications Medications (Trade) Dose Ordered Sig/Trevin Route PRN Reason Start Time Stop Time Status Last Admin Dose Admin Sodium Chloride 1,000 ml @ 1,000 mls/hr Q1H IV 03/03/21 11:00 03/03/21 11:59 DC 03/03/21 12:17 Aztreonam (Azactam) 2 gm 1X ONCE IVP 03/03/21 11:00 03/03/21 11:01 DC 03/03/21 12:17 Metronidazole 100 ml @ 100 mls/hr 1X ONCE IV 03/03/21 11:00 03/03/21 11:59 DC 03/03/21 12:17 Etomidate (Amidate) 20 mg 1X ONCE IV 03/03/21 11:00 03/03/21 11:01 DC 03/03/21 10:53 Rocuronium [place] (Zemuron) 100 mg 1X ONCE IV 03/03/21 11:00 03/03/21 11:01 DC 03/03/21 10:52 Sodium Chloride 1,000 ml @ 1,000 mls/hr 1X ONCE IV 03/03/21 11:30 03/03/21 12:29 DC 03/03/21 13:00 Vancomycin HCl 1.75 gm/Sodium Chloride 500 ml @ 250 mls/hr 1X ONCE IV 03/03/21 12:30 03/03/21 14:29 DC 03/03/21 13:41 Aztreonam (Azactam) 1 gm Q8HRS IVP 03/03/21 22:00 03/04/21 07:50 DC 03/04/21 06:26 Fentanyl Citrate 30 ml @ 0 mls/hr CONT PRN IV SEE PROTOCOL 03/03/21 12:00 03/03/21 13:49 Midazolam HCl 100 ml @ 0 mls/hr CONT PRN IV SEE PROTOCOL 03/03/21 12:00 03/03/21 13:49 Famotidine (Pepcid Vial) 20 mg QHS IVP 03/03/21 21:00 03/03/21 21:24 Heparin Sodium (Porcine) (Heparin Sodium) 5,000 unit Q8HRS SQ 03/03/21 15:00 03/03/21 22:04 Sodium Chloride 1,000 ml @ 80 mls/hr [id number] IV 03/03/21 14:30 03/03/21 16:26 Norepinephrine Bitartrate 8 mg/ Dextrose 258 ml @ 0 mls/hr CONT PRN IV SEE I/O RECORD 03/03/21 19:00 03/04/21 05:32 Dextrose (Dextrose 50%-Water Syringe) 12.5 gm PRN Q15MIN PRN IV SEE COMMENTS 03/03/21 22:45 03/04/21 04:35 Vasopressin 20 unit/Dextrose 101 ml @ 12 mls/hr CONT PRN IV SEE I/O RECORD 03/03/21 23:15 03/04/21 07:25 Sodium Bicarbonate (Sodium Bicarb Adult 8.4% Syr) 150 meq 1X ONCE IV 03/04/21 06:00 03/04/21 06:01 DC 03/04/21 05:47 Calcium Gluconate (Calcium Gluconate) 1,000 mg 1X ONCE IVP 03/04/21 06:00 03/04/21 06:01 DC 03/04/21 05:47 Sodium Bicarbonate 150 meq/Dextrose 1,150 ml @ 100 mls/hr [id number] IV 03/04/21 06:00 03/04/21 06:12 Sodium Bicarbonate (Sodium Bicarb Adult 8.4% Syr) 100 meq 1X ONCE IV 03/04/21 08:00 03/04/21 08:01 DC 03/04/21 08:06 Potassium Chloride 10 meq/ Bicarbonate Dialysis Soln w/ out KCl 5,005 ml @ 1,200 mls/hr Q4H11M IV 03/04/21 10:00 03/04/21 10:00 Potassium Chloride 10 meq/ Bicarbonate Dialysis Soln w/ out KCl 5,005 ml @ 1,200 mls/hr Q4H11M IV 03/04/21 10:00 03/04/21 10:00 Potassium Chloride 10 meq/ Bicarbonate Dialysis Soln w/ out KCl 5,005 ml @ 1,200 mls/hr Q4H11M IV 03/04/21 10:00 03/04/21 10:00 Justifications for Admission Other Justification ELVIRA GAGE MD Mar 04, 2021 11:03
[2021-03-04] MEDS: CEFEPIME HCL IV Push 1 GM VIAL. IVP SCH ×2 (11:05→21:15)
[2021-03-04] MEDS ORDERED: NORMAL SALINE IV SCH (12:00)
[2021-03-04] MEDS ORDERED: DAPTOMYCIN IV SCH (12:00)
[2021-03-04 12:07] LABS: BASO # 0.1 x10^3/uL (0.0-0.2); BASO % 0 % (0-3); EOS % 0 % (0-3); HEMATOCRIT 23.3 % (36.0-47.0); HEMOGLOBIN 7.1 g/dL (12.0-15.5); LYMPH # 1.1 x10^3/uL (1.0-4.8); LYMPH % 8 % (24-48); MEAN CORPUSCULAR HEMOGLOBIN 27 pg (25-35); MEAN CORPUSCULAR HGB CONC 31 g/dL (31-37); MEAN CORPUSCULAR VOLUME 89 fL (79-100); MONO # 0.4 x10^3/uL (0.0-1.1); MONO % 3 % (0-9); NEUT % 88 % (31-73); PLATELET COUNT 370 x10^3/uL (140-400); RED BLOOD COUNT 2.62 x10^6/uL (3.50-5.40); RED CELL DISTRIBUTION WIDTH 17.8 % (11.5-14.5); WHITE BLOOD COUNT 13.6 x10^3/uL (4.0-11.0)
--- NOTE | 2021-03-04 12:30 | CONS ---
DATE OF CONSULTATION: 03/03/2021 REFERRING PHYSICIAN: Dr. Wallace. REASON FOR CONSULTATION: Sepsis with multiorgan failure. 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 The patient is unresponsive. The patient required intubation. The patient is on vasopressor support. Had fever, leukocytosis, lactic acidosis, renal insufficiency. Potassium was 8.7, carbon dioxide down to 6. The patient was given Flagyl, vancomycin, aztreonam and consult has been requested. PAST MEDICAL HISTORY: Positive for multiple CVAs in the past. The patient is a total care in a [place] [facility]. Has a PEG tube, tracheostomy, hypertension, hyperlipidemia, diabetes. SOCIAL HISTORY: Negative for smoking, alcohol or illicit drug use. At this stage, the patient is a [place] [facility] resident who is a total care. CURRENT MEDICATIONS: Reviewed. REVIEW OF SYSTEMS: As in HPI, all other systems are reviewed and are negative. PHYSICAL EXAMINATION: GENERAL: Sedated overly. The patient has a tracheostomy and on a ventilator, requiring multiple vasopressors, not in distress. VITAL SIGNS: Temperature 100.4 with a T-max at 101.1, pulse 115, respirations 28, blood pressure 73/52. HEENT: Both pupils are round and reacting. No oral lesions. NECK: Supple. Tracheostomy in place. LUNGS: Decreased breath sounds bilaterally. HEART: S1, S2 regular. No gallop. ABDOMEN: Soft, nontender. PEG tube is in place. EXTREMITIES: Cold, clammy extremities with some dry flaky skin. The patient has gluteal wounds bilaterally. I think the worse is on the left side. Another wound on the left lopez. NEUROLOGIC: The patient is unresponsive. LABORATORY DATA: White count is 15,000; hemoglobin 5.5; platelets are 473,000. Potassium is 8.7, bicarbonate 6, BUN 121, creatinine is 5.2. AST 4358, ALT 2494. CK is 2793. Lactic acid had been up to 3.9. Urinalysis showed too numerous to count wbc's, more than 40 rbc's. Occult blood positive. COVID negative. DIAGNOSTIC DATA: Chest x-ray showed pulmonary infiltrate. IMPRESSION: 1. Fever. 2. Leukocytosis. 3. Lactic acidosis/sepsis. 4. Multiorgan dysfunction. 5. Respiratory failure. 6. Circulatory failure. 7. Renal failure. 8. Gastrointestinal bleed. 9. Multiple cerebrovascular accidents in the past. RECOMMENDATIONS: We will use daptomycin and cefepime. Supportive care. The patient needs comfort care. Prognosis is poor. Thank you very much, Dr. Wallace, for giving me the opportunity to participate in this patient's care. SHRUTI/ALBINO/SOKatharine DR: Enriqueta TID: [id number]
[2021-03-04 12:44] LABS: CALCIUM 7.1 mg/dL (8.5-10.1); CREATININE 3.8 mg/dL (0.6-1.0); GFR 14.5; MAGNESIUM 2.6 mg/dL (1.8-2.4)
[2021-03-04 12:46] LABS: PHOSPHORUS 11.4 mg/dL (2.6-4.7)
[2021-03-04 12:59] LABS: % BANDS 11 % (0-9); % LYMPHS 12 % (24-48); % METAS 5 % (0-0); % MONOS 4 % (0-10); % MYELOS 2 % (0-0); % SEGS 66 % (35-66); PLT ESTIMATE ADEQUATE (ADEQUATE)
[2021-03-04 13:00] LABS: ANISOCYTOSIS SLIGHT
--- NOTE | 2021-03-04 13:42 | PDOC ---
PULMONARY PROGRESS NOTES DATE: 03/04/21 TIME: 13:41 Vitals Vital Signs Date Time Temp Pulse Resp B/P (MAP) Pulse Ox O2 Delivery O2 Flow Rate FiO2 03/04/21 13:04 24 97 Ventilator 03/04/21 13:03 104 106/80 (89) 03/04/21 10:30 96.1 96.1 Lungs: Clear Labs Laboratory Tests Test 03/03/21 10:40 03/03/21 11:10 03/03/21 13:35 03/03/21 14:10 White Blood Count 12.9 x10^3/uL (4.0-11.0) Red Blood Count 2.72 x10^6/uL (3.50-5.40) Hemoglobin 7.7 g/dL (12.0-15.5) Hematocrit 23.7 % (36.0-47.0) Mean Corpuscular Volume 87 fL (79-100) Mean Corpuscular Hemoglobin 28 pg (25-35) Mean Corpuscular Hemoglobin Concent 32 g/dL (31-37) Red Cell Distribution Width 16.6 % (11.5-14.5) Platelet Count 547 x10^3/uL (140-400) Neutrophils (%) (Auto) 83 % (31-73) Lymphocytes (%) (Auto) 13 % (24-48) Monocytes (%) (Auto) 3 % (0-9) Eosinophils (%) (Auto) 0 % (0-3) Basophils (%) (Auto) 0 % (0-3) Neutrophils # (Auto) 10.7 x10^3/uL (1.8-7.7) Lymphocytes # (Auto) 1.7 x10^3/uL (1.0-4.8) Monocytes # (Auto) 0.4 x10^3/uL (0.0-1.1) Eosinophils # (Auto) 0.0 x10^3/uL (0.0-0.7) Basophils # (Auto) 0.1 x10^3/uL (0.0-0.2) Sodium Level 135 mmol/L (136-145) Potassium Level 4.9 mmol/L (3.5-5.1) Chloride Level 95 mmol/L (98-107) Carbon Dioxide Level 16 mmol/L (21-32) Anion Gap 24 (6-14) Blood Urea Nitrogen 116 mg/dL (7-20) Creatinine 4.7 mg/dL (0.6-1.0) Estimated GFR (Cockcroft-Gault) 11.4 Glucose Level 271 mg/dL (70-99) Lactic Acid Level 3.9 mmol/L (0.4-2.0) 2.8 mmol/L (0.4-2.0) Calcium Level 8.3 mg/dL (8.5-10.1) Iron Level 17 ug/dL (50-170) Total Iron Binding Capacity 216 ug/dL (250-450) Iron Saturation 8 % (15-34) Total Bilirubin 0.7 mg/dL (0.2-1.0) Direct Bilirubin 0.4 mg/dL (0.0-0.2) Aspartate Amino Transf (AST/SGOT) 204 U/L (15-37) Alanine Aminotransferase (ALT/SGPT) 159 U/L (14-59) Alkaline Phosphatase 99 U/L (46-116) Creatine Kinase 3340 U/L (26-192) Troponin I Quantitative 0.081 ng/mL (0.000-0.055) LG-Eyu-D-Type Natriuretic Peptide 587 pg/mL (0-124) Total Protein 6.4 g/dL (6.4-8.2) Albumin 1.6 g/dL (3.4-5.0) Vitamin B12 Level 551 pg/mL (247-911) Thyroid Stimulating Hormone (TSH) 3.418 uIU/mL (0.358-3.74) Salicylates Level < 2.8 mg/dL (2.8-20.0) Salicylate Last Dose Date Unknown Salicylate Last Dose Time Unknown Acetaminophen Level < 2 mcg/ml (10-30) Acetaminophen Last Dose Date Unknown Acetaminophen Last Dose Time Unknown Acetone Level Neg (NEG) Coronavirus (COVID-19)(PCR) Negative (NEGATIVE) O2 Saturation 100 % (92-99) Arterial Blood pH 7.27 (7.35-7.45) Arterial Blood pCO2 at Patient Temp 33 mmHg (35-46) Arterial Blood pO2 at Patient Temp 249 mmHg (65-108) Arterial Blood HCO3 15 mmol/L (21-28) Arterial Blood Base Excess -11 mmol/L (-3-3) Oxyhemoglobin 98.3 % Methemoglobin 0.9 % (0.0-1.9) Carbon Monoxide, Quantitative 0.3 % (0.0-1.9) FiO2 100 Urine Collection Type U cath Urine Color Yellow Urine Clarity Turbid Urine pH 6.0 (<5.0-8.0) Urine Specific [place] 1.015 (1.000-1.030) Urine Protein 30 mg/dL (NEG-TRACE) Urine Glucose (UA) Negative mg/dL (NEG) Urine Ketones (Stick) Negative mg/dL (NEG) Urine Blood Large (NEG) Urine Nitrite Negative (NEG) Urine Bilirubin Negative (NEG) Urine Urobilinogen Dipstick 0.2 mg/dL (0.2 mg/dL) Urine Leukocyte Esterase Large (NEG) Urine RBC >40 /HPF (0-2) Urine WBC Tntc /HPF (0-4) Urine Squamous Epithelial Cells Few /LPF Urine Amorphous Sediment Present /HPF Urine Bacteria Many /HPF (0-FEW) Urine Hyaline Casts Many /HPF Urine Mucus Mod /LPF Test 03/03/21 17:10 03/03/21 19:55 03/03/21 21:50 03/03/21 22:41 Troponin I Quantitative 0.089 ng/mL (0.000-0.055) Hemoglobin 7.1 g/dL (12.0-15.5) Prothrombin Time 17.4 SEC (11.7-14.0) Prothromb Time International Ratio 1.5 (0.8-1.1) Activated Partial Thromboplast Time 38 SEC (24-38) Fibrinogen 842 mg/dL (200-440) D-Dimer (Salma) 14.05 ug/mlFEU (0.00-0.50) Procalcitonin 20.10 ng/mL (0.00-0.10) Stool Occult Blood Positive (NEG) Glucose (Fingerstick) 48 mg/dL (70-99) Test 03/03/21 22:57 03/04/21 04:30 03/04/21 04:36 03/04/21 04:45 Glucose (Fingerstick) 134 mg/dL (70-99) 188 mg/dL (70-99) White Blood Count 15.0 x10^3/uL (4.0-11.0) Red Blood Count 2.00 x10^6/uL (3.50-5.40) Hemoglobin 5.5 g/dL (12.0-15.5) Hematocrit 20.1 % (36.0-47.0) Mean Corpuscular Volume 101 fL (79-100) Mean Corpuscular Hemoglobin 28 pg (25-35) Mean Corpuscular Hemoglobin Concent 27 g/dL (31-37) Red Cell Distribution Width 17.9 % (11.5-14.5) Platelet Count 473 x10^3/uL (140-400) Neutrophils (%) (Auto) 82 % (31-73) Lymphocytes (%) (Auto) 15 % (24-48) Monocytes (%) (Auto) 3 % (0-9) Eosinophils (%) (Auto) 0 % (0-3) Basophils (%) (Auto) 0 % (0-3) Neutrophils # (Auto) 12.3 x10^3/uL (1.8-7.7) Lymphocytes # (Auto) 2.2 x10^3/uL (1.0-4.8) Monocytes # (Auto) 0.4 x10^3/uL (0.0-1.1) Eosinophils # (Auto) 0.0 x10^3/uL (0.0-0.7) Basophils # (Auto) 0.0 x10^3/uL (0.0-0.2) Prothrombin Time 22.5 SEC (11.7-14.0) Prothromb Time International Ratio 2.0 (0.8-1.1) Activated Partial Thromboplast Time 47 SEC (24-38) Creatine Kinase 2793 U/L (26-192) O2 Saturation 96 % (92-99) Arterial Blood pH 6.92 (7.35-7.45) Arterial Blood pCO2 at Patient Temp 24 mmHg (35-46) Arterial Blood pO2 at Patient Temp 119 mmHg (65-108) Arterial Blood HCO3 5 mmol/L (21-28) Arterial Blood Base Excess -26 mmol/L (-3-3) FiO2 40 Test 03/04/21 05:30 03/04/21 06:51 03/04/21 07:40 03/04/21 11:00 Sodium Level 138 mmol/L (136-145) 143 mmol/L (136-145) Potassium Level 8.7 mmol/L (3.5-5.1) 6.0 mmol/L (3.5-5.1) Chloride Level 101 mmol/L (98-107) 103 mmol/L (98-107) Carbon Dioxide Level 6 mmol/L (21-32) 10 mmol/L (21-32) Anion Gap 31 (6-14) 30 (6-14) Blood Urea Nitrogen 121 mg/dL (7-20) 94 mg/dL (7-20) Creatinine 5.2 mg/dL (0.6-1.0) 3.8 mg/dL (0.6-1.0) Estimated GFR (Cockcroft-Gault) 10.1 14.5 BUN/Creatinine Ratio 23 (6-20) Glucose Level 127 mg/dL (70-99) 95 mg/dL (70-99) Calcium Level 7.6 mg/dL (8.5-10.1) 7.1 mg/dL (8.5-10.1) Total Bilirubin 1.3 mg/dL (0.2-1.0) Aspartate Amino Transf (AST/SGOT) 4358 U/L (15-37) Alanine Aminotransferase (ALT/SGPT) 2494 U/L (14-59) Alkaline Phosphatase 98 U/L (46-116) Total Protein 5.6 g/dL (6.4-8.2) Albumin 1.1 g/dL (3.4-5.0) Albumin/Globulin Ratio 0.2 (1.0-1.7) Glucose (Fingerstick) 85 mg/dL (70-99) O2 Saturation 95 % (92-99) Arterial Blood pH 7.10 (7.35-7.45) Arterial Blood pCO2 at Patient Temp 22 mmHg (35-46) Arterial Blood pO2 at Patient Temp 107 mmHg (65-108) Arterial Blood HCO3 7 mmol/L (21-28) Arterial Blood Base Excess -21 mmol/L (-3-3) FiO2 40%+% White Blood Count 13.6 x10^3/uL (4.0-11.0) Red Blood Count 2.62 x10^6/uL (3.50-5.40) Hemoglobin 7.1 g/dL (12.0-15.5) Hematocrit 23.3 % (36.0-47.0) Mean Corpuscular Volume 89 fL (79-100) Mean Corpuscular Hemoglobin 27 pg (25-35) Mean Corpuscular Hemoglobin Concent 31 g/dL (31-37) Red Cell Distribution Width 17.8 % (11.5-14.5) Platelet Count 370 x10^3/uL (140-400) Neutrophils (%) (Auto) 88 % (31-73) Lymphocytes (%) (Auto) 8 % (24-48) Monocytes (%) (Auto) 3 % (0-9) Eosinophils (%) (Auto) 0 % (0-3) Basophils (%) (Auto) 0 % (0-3) Neutrophils # (Auto) 12.0 x10^3/uL (1.8-7.7) Lymphocytes # (Auto) 1.1 x10^3/uL (1.0-4.8) Monocytes # (Auto) 0.4 x10^3/uL (0.0-1.1) Eosinophils # (Auto) 0.0 x10^3/uL (0.0-0.7) Basophils # (Auto) 0.1 x10^3/uL (0.0-0.2) Segmented Neutrophils % 66 % (35-66) Band Neutrophils % 11 % (0-9) Lymphocytes % 12 % (24-48) Monocytes % 4 % (0-10) Metamyelocytes % 5 % (0-0) Myelocytes % 2 % (0-0) Dohle Bodies Mod Platelet Estimate Adequate (ADEQUATE) Large Platelets Occ Anisocytosis Slight Phosphorus Level 11.4 mg/dL (2.6-4.7) Magnesium Level 2.6 mg/dL (1.8-2.4) Laboratory Tests Test 03/03/21 14:10 03/03/21 17:10 03/03/21 19:55 03/03/21 21:50 Lactic Acid Level 2.8 mmol/L (0.4-2.0) Troponin I Quantitative 0.089 ng/mL (0.000-0.055) Hemoglobin 7.1 g/dL (12.0-15.5) Prothrombin Time 17.4 SEC (11.7-14.0) Prothromb Time International Ratio 1.5 (0.8-1.1) Activated Partial Thromboplast Time 38 SEC (24-38) Fibrinogen 842 mg/dL (200-440) D-Dimer (Salma) 14.05 ug/mlFEU (0.00-0.50) Procalcitonin 20.10 ng/mL (0.00-0.10) Stool Occult Blood Positive (NEG) Test 03/03/21 22:41 03/03/21 22:57 03/04/21 04:30 03/04/21 04:36 Glucose (Fingerstick) 48 mg/dL (70-99) 134 mg/dL (70-99) White Blood Count 15.0 x10^3/uL (4.0-11.0) Red Blood Count 2.00 x10^6/uL (3.50-5.40) Hemoglobin 5.5 g/dL (12.0-15.5) Hematocrit 20.1 % (36.0-47.0) Mean Corpuscular Volume 101 fL (79-100) Mean Corpuscular Hemoglobin 28 pg (25-35) Mean Corpuscular Hemoglobin Concent 27 g/dL (31-37) Red Cell Distribution Width 17.9 % (11.5-14.5) Platelet Count 473 x10^3/uL (140-400) Neutrophils (%) (Auto) 82 % (31-73) Lymphocytes (%) (Auto) 15 % (24-48) Monocytes (%) (Auto) 3 % (0-9) Eosinophils (%) (Auto) 0 % (0-3) Basophils (%) (Auto) 0 % (0-3) Neutrophils # (Auto) 12.3 x10^3/uL (1.8-7.7) Lymphocytes # (Auto) 2.2 x10^3/uL (1.0-4.8) Monocytes # (Auto) 0.4 x10^3/uL (0.0-1.1) Eosinophils # (Auto) 0.0 x10^3/uL (0.0-0.7) Basophils # (Auto) 0.0 x10^3/uL (0.0-0.2) Prothrombin Time 22.5 SEC (11.7-14.0) Prothromb Time International Ratio 2.0 (0.8-1.1) Activated Partial Thromboplast Time 47 SEC (24-38) Creatine Kinase 2793 U/L (26-192) O2 Saturation 96 % (92-99) Arterial Blood pH 6.92 (7.35-7.45) Arterial Blood pCO2 at Patient Temp 24 mmHg (35-46) Arterial Blood pO2 at Patient Temp 119 mmHg (65-108) Arterial Blood HCO3 5 mmol/L (21-28) Arterial Blood Base Excess -26 mmol/L (-3-3) FiO2 40 Test 03/04/21 04:45 03/04/21 05:30 03/04/21 06:51 03/04/21 07:40 Glucose (Fingerstick) 188 mg/dL (70-99) 85 mg/dL (70-99) Sodium Level 138 mmol/L (136-145) Potassium Level 8.7 mmol/L (3.5-5.1) Chloride Level 101 mmol/L (98-107) Carbon Dioxide Level 6 mmol/L (21-32) Anion Gap 31 (6-14) Blood Urea Nitrogen 121 mg/dL (7-20) Creatinine 5.2 mg/dL (0.6-1.0) Estimated GFR (Cockcroft-Gault) 10.1 BUN/Creatinine Ratio 23 (6-20) Glucose Level 127 mg/dL (70-99) Calcium Level 7.6 mg/dL (8.5-10.1) Total Bilirubin 1.3 mg/dL (0.2-1.0) Aspartate Amino Transf (AST/SGOT) 4358 U/L (15-37) Alanine Aminotransferase (ALT/SGPT) 2494 U/L (14-59) Alkaline Phosphatase 98 U/L (46-116) Total Protein 5.6 g/dL (6.4-8.2) Albumin 1.1 g/dL (3.4-5.0) Albumin/Globulin Ratio 0.2 (1.0-1.7) O2 Saturation 95 % (92-99) Arterial Blood pH 7.10 (7.35-7.45) Arterial Blood pCO2 at Patient Temp 22 mmHg (35-46) Arterial Blood pO2 at Patient Temp 107 mmHg (65-108) Arterial Blood HCO3 7 mmol/L (21-28) Arterial Blood Base Excess -21 mmol/L (-3-3) FiO2 40%+% Test 03/04/21 11:00 White Blood Count 13.6 x10^3/uL (4.0-11.0) Red Blood Count 2.62 x10^6/uL (3.50-5.40) Hemoglobin 7.1 g/dL (12.0-15.5) Hematocrit 23.3 % (36.0-47.0) Mean Corpuscular Volume 89 fL (79-100) Mean Corpuscular Hemoglobin 27 pg (25-35) Mean Corpuscular Hemoglobin Concent 31 g/dL (31-37) Red Cell Distribution Width 17.8 % (11.5-14.5) Platelet Count 370 x10^3/uL (140-400) Neutrophils (%) (Auto) 88 % (31-73) Lymphocytes (%) (Auto) 8 % (24-48) Monocytes (%) (Auto) 3 % (0-9) Eosinophils (%) (Auto) 0 % (0-3) Basophils (%) (Auto) 0 % (0-3) Neutrophils # (Auto) 12.0 x10^3/uL (1.8-7.7) Lymphocytes # (Auto) 1.1 x10^3/uL (1.0-4.8) Monocytes # (Auto) 0.4 x10^3/uL (0.0-1.1) Eosinophils # (Auto) 0.0 x10^3/uL (0.0-0.7) Basophils # (Auto) 0.1 x10^3/uL (0.0-0.2) Segmented Neutrophils % 66 % (35-66) Band Neutrophils % 11 % (0-9) Lymphocytes % 12 % (24-48) Monocytes % 4 % (0-10) Metamyelocytes % 5 % (0-0) Myelocytes % 2 % (0-0) Dohle Bodies Mod Platelet Estimate Adequate (ADEQUATE) Large Platelets Occ Anisocytosis Slight Sodium Level 143 mmol/L (136-145) Potassium Level 6.0 mmol/L (3.5-5.1) Chloride Level 103 mmol/L (98-107) Carbon Dioxide Level 10 mmol/L (21-32) Anion Gap 30 (6-14) Blood Urea Nitrogen 94 mg/dL (7-20) Creatinine 3.8 mg/dL (0.6-1.0) Estimated GFR (Cockcroft-Gault) 14.5 Glucose Level 95 mg/dL (70-99) Calcium Level 7.1 mg/dL (8.5-10.1) Phosphorus Level 11.4 mg/dL (2.6-4.7) Magnesium Level 2.6 mg/dL (1.8-2.4) Medications Active Scripts Medications Dose Route/Sig Max Daily Dose Days Date Category Dose Instructions Clopidogrel (Clopidogrel Bisulfate) 75 Mg Tablet 1 Tab PO DAILY 03/03/21 Reported Omeprazole 20 Mg Capsule.dr 1 Cap PO DAILY 03/03/21 Reported Miralax (Polyethylene Glycol 3350) 17 Gm Powd.pack 1 Packet PO DAILY 2 03/03/21 Reported dissolve in water Lisinopril 40 Mg Tablet 1 Tab PO DAILY 03/03/21 Reported Itraconazole 100 Mg Capsule 200 Mg PO DAILY 7 03/03/21 Reported Gentamicin Sulfate 30 Gm Oint...g. 1 [place] TP BID 03/03/21 Reported apply to affected area(s) Gabapentin 300 Mg Capsule 300 Mg PO TID 03/03/21 Reported Ferrous Sulfate 325 Mg Tablet 1 Tab PO DAILY 03/03/21 Reported Baclofen 10 Mg Tablet 1 Tab PO TID 03/03/21 Reported Aspirin 81 Mg Tab.chew 1 Tab PO DAILY 03/03/21 Reported Anaspaz (Hyoscyamine Sulfate) 0.125 Mg Tab.rapdis 0.125 Mg PO Q4HRS W/A 03/03/21 Reported Cepacol Sore Throat Lozenge (Benzocaine/Menthol) 1 Each Lozenge 1 Each MM TID PRN 04/18/17 Reported Lipitor (Atorvastatin Calcium) 80 Mg Tablet 1 Tab PO DAILY 04/18/17 Reported Norvasc (Amlodipine Besylate) 10 Mg Tablet 10 Mg PO DAILY 04/18/17 Reported Impression . Multifactorial respiratory failure, multiorgan failure, continue current support JAVID TORRES MD Mar 04, 2021 13:42
--- NOTE | 2021-03-04 15:47 | NUR ---
Patient is on CRRT and ventilator with Levophed, Vasopressin, for support. Anya Hugger was placed for core temperature of 94.1F with no improvement at this time. O2 sat is difficult to achieve because of the low temp. ABGs are ordered every 12 hours to verify oxygenation. Patient's son called for update. Discussed code status, he will get back with us. Patient remains full code at this time. Addendum: 03/04/21 at 1629 by TREMAYNE HOLLINGSWORTH RN 1600 assessment: patient has no gag, no cough, no cornea reflex. Addendum: 03/04/21 at 1843 by TREMAYNE HOLLINGSWORTH RN Blood transfusions vitals are in intervention vitals.
--- NOTE | 2021-03-04 16:08 | NUR ---
SS following for discharge planning. SS reviewed pt chart and discussed with pt RN. Pt is LT resident from [facility], ; fax [phone]. Pt is currently on the vent at 40%. COVID19 negative. Pt on IV Daptomycin and IV Cefepime. Pt on Vasopressin, Levophed, Versed, and Bicarb drip. Pt on CRRT. Not stable. Physicians, RN, and SS spoke with family and discussed CODE status. Pt currently Full Code at this time. SS will continue to follow for discharge planning.
--- NOTE | 2021-03-04 16:18 | NUR ---
Wound Care: Attempted to see patient for wound care. RN stated that the patient is too unstable to assess today and cannot be turned at this time. Wound care will follow up tomorrow.
[2021-03-04 16:41] LABS: BASE EXCESS ABG -17 mmol/L (-3-3); CORRECTED PCO2 ABG 24 mmHg; CORRECTED PH ABG 7.23; CORRECTED PO2 ABG 81 mmHg; HCO3 ABG 10 mmol/L (21-28); SAT O2 ABG 95 % (92-99)
[2021-03-04 16:56] LABS: FIO2 ABG 40%+5
--- NOTE | 2021-03-04 17:07 | PDOC ---
GI PROGRESS NOTES Date of Service: Date/Time DATE: 03/04/21 TIME: 17:04 Subjective Subjective ischemic picture with dramatically elevated CPK, transaminases drop in Hgb without overt bleeding Objective Vitals Vital Signs Date Time Temp Pulse Resp B/P (MAP) Pulse Ox O2 Delivery O2 Flow Rate FiO2 03/04/21 16:24 Mechanical Ventilator 03/04/21 16:20 94.1 112 23 108/71 (83) 95 Ventilator 94.1 03/04/21 16:11 Mechanical Ventilator 03/04/21 15:46 Ventilator 03/04/21 15:08 94.1 113 25 112/80 (91) 94 Ventilator 94.1 03/04/21 14:00 94.5 112 27 126/81 (96) 96 Ventilator 94.5 03/04/21 13:04 24 97 Ventilator 03/04/21 13:03 104 24 106/80 (89) 97 Ventilator 03/04/21 12:42 98 Ventilator 03/04/21 12:34 27 99 Ventilator 03/04/21 12:11 113 27 116/80 (92) 99 Ventilator 03/04/21 12:09 Mechanical Ventilator 03/04/21 11:40 99 Ventilator 03/04/21 11:30 105 27 110/83 03/04/21 11:03 95 26 109/77 (88) 99 Ventilator 03/04/21 10:30 96.1 108 28 121/77 96.1 03/04/21 10:02 104 28 118/72 (87) 99 Ventilator 03/04/21 09:30 98.5 128 27 121/73 98.5 03/04/21 09:19 110 27 124/78 (93) 93 Ventilator 03/04/21 09:15 98.9 126 30 130/72 98.9 03/04/21 09:10 Ventilator 03/04/21 08:15 Mechanical Ventilator 03/04/21 07:29 Ventilator 03/04/21 07:26 98.9 101 25 83/55 (64) 95 Ventilator 98.9 03/04/21 07:15 73/52 (59) 03/04/21 06:00 115 28 111/59 (76) 96 Ventilator 03/04/21 05:13 97 Ventilator 03/04/21 05:00 103 25 117/69 (85) 96 Ventilator 03/04/21 04:07 97 Ventilator 03/04/21 04:00 Mechanical Ventilator 03/04/21 04:00 100.4 95 25 74/56 (62) 95 Ventilator 100.4 03/04/21 03:00 104 32 94/59 (71) 100 Ventilator 03/04/21 02:00 108 29 98/60 (73) 100 Ventilator 03/04/21 01:00 116 36 102/54 (70) 100 Ventilator 03/04/21 00:52 97 Ventilator 03/04/21 00:46 97 Ventilator 03/04/21 00:00 Mechanical Ventilator 03/04/21 00:00 101.1 118 34 85/60 (68) 100 Ventilator 101.1 03/03/21 23:19 80/54 (63) 03/03/21 23:00 117 31 80/41 (54) 100 Ventilator 03/03/21 22:48 71/44 (53) 03/03/21 22:18 71/38 (49) 03/03/21 22:10 97 Ventilator 03/03/21 22:00 117 30 64/50 (55) 100 Ventilator 03/03/21 21:33 93/54 (67) 03/03/21 21:00 121 30 65/42 (50) 100 Ventilator 03/03/21 20:00 97.5 124 27 81/53 (62) 100 Ventilator 97.5 03/03/21 20:00 Mechanical Ventilator 03/03/21 19:00 126 26 91/59 (70) 98 Ventilator 03/03/21 18:00 123 18 87/58 (68) 98 Ventilator 03/03/21 17:52 98 Ventilator Labs Labs Laboratory Tests Test 03/03/21 17:10 03/03/21 19:55 03/03/21 21:50 03/03/21 22:41 Troponin I Quantitative 0.089 ng/mL (0.000-0.055) Hemoglobin 7.1 g/dL (12.0-15.5) Prothrombin Time 17.4 SEC (11.7-14.0) Prothromb Time International Ratio 1.5 (0.8-1.1) Activated Partial Thromboplast Time 38 SEC (24-38) Fibrinogen 842 mg/dL (200-440) D-Dimer (Salma) 14.05 ug/mlFEU (0.00-0.50) Procalcitonin 20.10 ng/mL (0.00-0.10) Stool Occult Blood Positive (NEG) Glucose (Fingerstick) 48 mg/dL (70-99) Test 03/03/21 22:57 03/04/21 04:30 03/04/21 04:36 03/04/21 04:45 Glucose (Fingerstick) 134 mg/dL (70-99) 188 mg/dL (70-99) White Blood Count 15.0 x10^3/uL (4.0-11.0) Red Blood Count 2.00 x10^6/uL (3.50-5.40) Hemoglobin 5.5 g/dL (12.0-15.5) Hematocrit 20.1 % (36.0-47.0) Mean Corpuscular Volume 101 fL (79-100) Mean Corpuscular Hemoglobin 28 pg (25-35) Mean Corpuscular Hemoglobin Concent 27 g/dL (31-37) Red Cell Distribution Width 17.9 % (11.5-14.5) Platelet Count 473 x10^3/uL (140-400) Neutrophils (%) (Auto) 82 % (31-73) Lymphocytes (%) (Auto) 15 % (24-48) Monocytes (%) (Auto) 3 % (0-9) Eosinophils (%) (Auto) 0 % (0-3) Basophils (%) (Auto) 0 % (0-3) Neutrophils # (Auto) 12.3 x10^3/uL (1.8-7.7) Lymphocytes # (Auto) 2.2 x10^3/uL (1.0-4.8) Monocytes # (Auto) 0.4 x10^3/uL (0.0-1.1) Eosinophils # (Auto) 0.0 x10^3/uL (0.0-0.7) Basophils # (Auto) 0.0 x10^3/uL (0.0-0.2) Prothrombin Time 22.5 SEC (11.7-14.0) Prothromb Time International Ratio 2.0 (0.8-1.1) Activated Partial Thromboplast Time 47 SEC (24-38) Creatine Kinase 2793 U/L (26-192) O2 Saturation 96 % (92-99) Arterial Blood pH 6.92 (7.35-7.45) Arterial Blood pCO2 at Patient Temp 24 mmHg (35-46) Arterial Blood pO2 at Patient Temp 119 mmHg (65-108) Arterial Blood HCO3 5 mmol/L (21-28) Arterial Blood Base Excess -26 mmol/L (-3-3) FiO2 40 Test 03/04/21 05:30 03/04/21 06:51 03/04/21 07:40 03/04/21 11:00 Sodium Level 138 mmol/L (136-145) 143 mmol/L (136-145) Potassium Level 8.7 mmol/L (3.5-5.1) 6.0 mmol/L (3.5-5.1) Chloride Level 101 mmol/L (98-107) 103 mmol/L (98-107) Carbon Dioxide Level 6 mmol/L (21-32) 10 mmol/L (21-32) Anion Gap 31 (6-14) 30 (6-14) Blood Urea Nitrogen 121 mg/dL (7-20) 94 mg/dL (7-20) Creatinine 5.2 mg/dL (0.6-1.0) 3.8 mg/dL (0.6-1.0) Estimated GFR (Cockcroft-Gault) 10.1 14.5 BUN/Creatinine Ratio 23 (6-20) Glucose Level 127 mg/dL (70-99) 95 mg/dL (70-99) Calcium Level 7.6 mg/dL (8.5-10.1) 7.1 mg/dL (8.5-10.1) Total Bilirubin 1.3 mg/dL (0.2-1.0) Aspartate Amino Transf (AST/SGOT) 4358 U/L (15-37) Alanine Aminotransferase (ALT/SGPT) 2494 U/L (14-59) Alkaline Phosphatase 98 U/L (46-116) Total Protein 5.6 g/dL (6.4-8.2) Albumin 1.1 g/dL (3.4-5.0) Albumin/Globulin Ratio 0.2 (1.0-1.7) Glucose (Fingerstick) 85 mg/dL (70-99) O2 Saturation 95 % (92-99) Arterial Blood pH 7.10 (7.35-7.45) Arterial Blood pCO2 at Patient Temp 22 mmHg (35-46) Arterial Blood pO2 at Patient Temp 107 mmHg (65-108) Arterial Blood HCO3 7 mmol/L (21-28) Arterial Blood Base Excess -21 mmol/L (-3-3) FiO2 40%+% White Blood Count 13.6 x10^3/uL (4.0-11.0) Red Blood Count 2.62 x10^6/uL (3.50-5.40) Hemoglobin 7.1 g/dL (12.0-15.5) Hematocrit 23.3 % (36.0-47.0) Mean Corpuscular Volume 89 fL (79-100) Mean Corpuscular Hemoglobin 27 pg (25-35) Mean Corpuscular Hemoglobin Concent 31 g/dL (31-37) Red Cell Distribution Width 17.8 % (11.5-14.5) Platelet Count 370 x10^3/uL (140-400) Neutrophils (%) (Auto) 88 % (31-73) Lymphocytes (%) (Auto) 8 % (24-48) Monocytes (%) (Auto) 3 % (0-9) Eosinophils (%) (Auto) 0 % (0-3) Basophils (%) (Auto) 0 % (0-3) Neutrophils # (Auto) 12.0 x10^3/uL (1.8-7.7) Lymphocytes # (Auto) 1.1 x10^3/uL (1.0-4.8) Monocytes # (Auto) 0.4 x10^3/uL (0.0-1.1) Eosinophils # (Auto) 0.0 x10^3/uL (0.0-0.7) Basophils # (Auto) 0.1 x10^3/uL (0.0-0.2) Segmented Neutrophils % 66 % (35-66) Band Neutrophils % 11 % (0-9) Lymphocytes % 12 % (24-48) Monocytes % 4 % (0-10) Metamyelocytes % 5 % (0-0) Myelocytes % 2 % (0-0) Dohle Bodies Mod Platelet Estimate Adequate (ADEQUATE) Large Platelets Occ Anisocytosis Slight Phosphorus Level 11.4 mg/dL (2.6-4.7) Magnesium Level 2.6 mg/dL (1.8-2.4) Test 03/04/21 16:00 O2 Saturation 95 % (92-99) Arterial Blood pH 7.23 (7.35-7.45) Arterial Blood pH (Temp corrected) 7.23 Arterial Blood pCO2 at Patient Temp 23 mmHg (35-46) Arterial Blood pCO2 (Temp correct) 24 mmHg Arterial Blood pO2 at Patient Temp 81 mmHg (65-108) Arterial Blood pO2 (Temp corrected) 81 mmHg Arterial Blood HCO3 10 mmol/L (21-28) Arterial Blood Base Excess -17 mmol/L (-3-3) FiO2 40%+5 Physical Exam Physical Exam on ventilator on dialysis sedated chest- few rhonchi abd- soft- decreased bowel sounds Assessment Assessment Anemia- drop in Hgb without overt bleeding- dark fluid in suction canister but NO active bleeding- monitor and transfuse as needed- hold on urgent EGD unless overt bleeding occurs Ischemic event with ischemic hepatopathy - dramatic rise in transaminases over last 24 hours , with elevated CPK- Justicifation of Admission Dx: Justifications for Admission: Justification of Admission Dx: N/A RUBY CAPPS MD Mar 04, 2021 17:07
[2021-03-04 17:38] LABS: PCO2 ABG 26 mmHg (35-46); PO2 ABG 94 mmHg (65-108)
[2021-03-04] MEDS ORDERED: MINERAL OIL/PETROLATUM,WHITE OPHTH OINT 3.5GM TUBE. OU PRN (17:45)
[2021-03-04 17:50] LABS: BASO % 0 % (0-3); EOS # 0.1 x10^3/uL (0.0-0.7); EOS % 1 % (0-3); HEMATOCRIT 22.1 % (36.0-47.0); LYMPH # 1.3 x10^3/uL (1.0-4.8); LYMPH % 11 % (24-48); MEAN CORPUSCULAR HEMOGLOBIN 27 pg (25-35); MEAN CORPUSCULAR HGB CONC 31 g/dL (31-37); MEAN CORPUSCULAR VOLUME 89 fL (79-100); MONO # 0.4 x10^3/uL (0.0-1.1); MONO % 3 % (0-9); NEUT # 9.3 x10^3/uL (1.8-7.7); NEUT % 84 % (31-73); PLATELET COUNT 365 x10^3/uL (140-400); RED BLOOD COUNT 2.47 x10^6/uL (3.50-5.40); RED CELL DISTRIBUTION WIDTH 18.5 % (11.5-14.5); WHITE BLOOD COUNT 11.1 x10^3/uL (4.0-11.0)
[2021-03-04 17:57] LABS: HEMOGLOBIN 6.8 g/dL (12.0-15.5)
[2021-03-04 18:10] LABS: CALCIUM 7.2 mg/dL (8.5-10.1); CREATININE 2.5 mg/dL (0.6-1.0); GFR 23.5; MAGNESIUM 2.5 mg/dL (1.8-2.4); PHOSPHORUS 8.8 mg/dL (2.6-4.7); POTASSIUM 5.9 mmol/L (3.5-5.1)
--- NOTE | 2021-03-04 19:45 | NUR ---
Unable to obtain blood pressure readings. [employer] placed left radial arterial line.
--- NOTE | 2021-03-04 20:02 | PDOC ---
Date and Time Left 20 gauge radial lee placed. Chlorprep used, placed in sterile fashion. Good waveform present. Secured with tegaderm Current Medications Current Medications Sodium Chloride 1,000 ml @ 1,000 mls/hr Q1H IV Last administered on 03/03/21at 12:17; Start 03/03/21 at 11:00; Stop 03/03/21 at 11:59; Status DC Aztreonam (Azactam) 2 gm 1X ONCE IVP Last administered on 03/03/21at 12:17; Start 03/03/21 at 11:00; Stop 03/03/21 at 11:01; Status DC Metronidazole 100 ml @ 100 mls/hr 1X ONCE IV Last administered on 03/03/21at 12:17; Start 03/03/21 at 11:00; Stop 03/03/21 at 11:59; Status DC Vancomycin HCl (Vanco Per Pharmacy) 1 each PRN DAILY PRN MC SEE COMMENTS Last administered on 03/04/21at 07:46; Start 03/03/21 at 10:45; Stop 03/04/21 at 07:49; Status DC Etomidate (Amidate) 20 mg 1X ONCE IV Last administered on 03/03/21at 10:53; Start 03/03/21 at 11:00; Stop 03/03/21 at 11:01; Status DC Rocuronium Cornelius (Zemuron) 100 mg 1X ONCE IV Last administered on 03/03/21at 10:52; Start 03/03/21 at 11:00; Stop 03/03/21 at 11:01; Status DC Sodium Chloride 1,000 ml @ 1,000 mls/hr 1X ONCE IV ; Start 03/03/21 at 11:30; Stop 03/03/21 at 12:29; Status DC Sodium Chloride 1,000 ml @ 1,000 mls/hr 1X ONCE IV Last administered on 03/03/21at 13:00; Start 03/03/21 at 11:30; Stop 03/03/21 at 12:29; Status DC Vancomycin HCl 1.75 gm/Sodium Chloride 500 ml @ 250 mls/hr 1X ONCE IV Last administered on 03/03/21at 13:41; Start 03/03/21 at 12:30; Stop 03/03/21 at 14:29; Status DC Aztreonam (Azactam) 1 gm Q8HRS IVP Last administered on 03/04/21at 06:26; Start 03/03/21 at 22:00; Stop 03/04/21 at 07:50; Status DC Rocuronium Cornelius (Zemuron) 50 mg STK-MED ONCE .ROUTE ; Start 03/03/21 at 13:26; Stop 03/03/21 at 13:26; Status DC Fentanyl Citrate 30 ml @ 0 mls/hr CONT PRN IV SEE PROTOCOL Last administered on 03/04/21at 12:34; Start 03/03/21 at 12:00 Propofol 100 ml @ 0 mls/hr CONT PRN IV PER PROTOCOL; Start 03/03/21 at 12:00 Midazolam HCl 100 ml @ 0 mls/hr CONT PRN IV SEE PROTOCOL Last administered on 03/03/21at 13:49; Start 03/03/21 at 12:00 Ondansetron HCl (Zofran) 4 mg PRN Q6HRS PRN IVP NAUSEA/VOMITING; Start 03/03/21 at 14:30 Famotidine (Pepcid Vial) 20 mg QHS IVP Last administered on 03/03/21at 21:24; Start 03/03/21 at 21:00; Stop 03/04/21 at 14:14; Status DC Heparin Sodium (Porcine) (Heparin Sodium) 5,000 unit Q8HRS SQ Last administered on 03/03/21at 22:04; Start 03/03/21 at 15:00 Sodium Chloride (Normal Saline Flush) 3 ml QSHIFT PRN IV AFTER MEDS AND BLOOD DRAWS; Start 03/03/21 at 14:30 Sodium Chloride 1,000 ml @ 80 mls/hr [id number] IV Last administered on 03/03/21at 16:26; Start 03/03/21 at 14:30; Stop 03/04/21 at 15:31; Status DC Bisacodyl (Dulcolax Supp) 10 mg PRN DAILY PRN PA CONSTIPATION; Start 03/03/21 at 14:30 Vancomycin HCl (Vancomycin Random Level) 1 each 1X ONCE MC ; Start 03/05/21 at 05:00; Stop 03/05/21 at 05:01; Status Cancel Pharmacy Consult (C.diff Med Screen By Rx) 1 each 1X ONCE MC ; Start 03/03/21 at 15:15; Stop 03/03/21 at 15:16; Status UNV Sodium Chloride 500 ml @ 1,000 mls/hr PRN Q30MIN PRN IV SEE COMMENTS; Start 03/03/21 at 19:00 Norepinephrine Bitartrate 8 mg/ Dextrose 258 ml @ 0 mls/hr CONT PRN IV SEE I/O RECORD Last administered on 03/04/21at 15:28; Start 03/03/21 at 19:00 Dobutamine HCl/ Dextrose 250 ml @ 0 mls/hr CONT PRN IV SEE I/O RECORD; Start 03/03/21 at 19:00 Dextrose (Dextrose 50%-Water Syringe) 25 gm STK-MED ONCE IV ; Start 03/03/21 at 22:42; Stop 03/03/21 at 22:42; Status DC Dextrose (Dextrose 50%-Water Syringe) 12.5 gm PRN Q15MIN PRN IV SEE COMMENTS Last administered on 03/04/21at 04:35; Start 03/03/21 at 22:45 Vasopressin 20 unit/Dextrose 101 ml @ 12 mls/hr CONT PRN IV SEE I/O RECORD [facility] administered on 03/04/21at 16:36; Start 03/03/21 at 23:15 Epinephrine HCl (EPINEPHrine SYRINGE) 1 mg 1X ONCE IV ; Start 03/04/21 at 05:00; Stop 03/04/21 at 05:01; Status Cancel Epinephrine HCl 5 mg/Sodium Chloride 255 ml @ 18.666 mls/ hr CONT PRN IV SEE I/O RECORD; Start 03/04/21 at 04:45 Sodium Bicarbonate (Sodium Bicarb Adult 8.4% Syr) 150 meq 1X ONCE IV Last administered on 03/04/21at 05:47; Start 03/04/21 at 06:00; Stop 03/04/21 at 06:01; Status DC Calcium Gluconate (Calcium Gluconate) 1,000 mg 1X ONCE IVP Last administered on 03/04/21at 05:47; Start 03/04/21 at 06:00; Stop 03/04/21 at 06:01; Status DC Sodium Bicarbonate 150 meq/Dextrose 1,150 ml @ 150 mls/hr Q7H40M IV Last administered on 03/04/21at 15:31; Start 03/04/21 at 06:00 Daptomycin 310 mg/ Sodium Chloride 50 ml @ 100 mls/hr Q24H IV Last administered on 03/04/21at 11:05; Start 03/04/21 at 12:00 Cefepime HCl (Maxipime) 1 gm Q12HR IVP Last administered on 03/04/21at 11:05; Start 03/04/21 at 09:00 Lidocaine HCl (Buffered Lidocaine 1%) 4 ml 1X ONCE INJ ; Start 03/04/21 at 08:00; Stop 03/04/21 at 08:01; Status DC Sodium Bicarbonate (Sodium Bicarb Adult 8.4% Syr) 100 meq 1X ONCE IV Last administered on 03/04/21at 08:06; Start 03/04/21 at 08:00; Stop 03/04/21 at 08:01; Status DC Lidocaine HCl (Buffered Lidocaine 1%) 3 ml STK-MED ONCE .ROUTE ; Start 03/04/21 at 07:55; Stop 03/04/21 at 07:55; Status DC Potassium Chloride 10 meq/ Bicarbonate Dialysis Soln w/ out KCl 5,005 ml @ 1,200 mls/hr Q4H11M IV Last administered on 03/04/21at 18:38; Start 03/04/21 at 10:00 Potassium Chloride 10 meq/ Bicarbonate Dialysis Soln w/ out KCl 5,005 ml @ 1,200 mls/hr Q4H11M IV Last administered on 03/04/21at 18:39; Start 03/04/21 at 10:00 Potassium Chloride 10 meq/ Bicarbonate Dialysis Soln w/ out KCl 5,005 ml @ 1,200 mls/hr Q4H11M IV Last administered on 03/04/21at 18:38; Start 03/04/21 at 10:00 Pantoprazole Sodium (PROTONIX VIAL for IV PUSH) 40 mg DAILYAC IVP ; Start 03/05/21 at 07:30 Multi-Ingred Cream/Lotion/Oil/ Oint (Artificial Tears Eye Ointment) 1 [place] PRN Q1HR PRN OU DRY EYE Last administered on 03/04/21at 18:30; Start 03/04/21 at 17:45 Active Scripts Active Reported Clopidogrel (Clopidogrel Bisulfate) 75 Mg Tablet 1 Tab PO DAILY Omeprazole 20 Mg Capsule.dr 1 Cap PO DAILY Miralax (Polyethylene Glycol 3350) 17 Gm Powd.pack 1 Packet PO DAILY 2 Days dissolve in water Lisinopril 40 Mg Tablet 1 Tab PO DAILY Itraconazole 100 Mg Capsule 200 Mg PO DAILY 7 Days Gentamicin Sulfate 30 Gm Oint...g. 1 [place] TP BID apply to affected area(s) Gabapentin 300 Mg Capsule 300 Mg PO TID Ferrous Sulfate 325 Mg Tablet 1 Tab PO DAILY Baclofen 10 Mg Tablet 1 Tab PO TID Aspirin 81 Mg Tab.chew 1 Tab PO DAILY Anaspaz (Hyoscyamine Sulfate) 0.125 Mg Tab.rapdis 0.125 Mg PO Q4HRS W/A Cepacol Sore Throat Lozenge (Benzocaine/Menthol) 1 Each Lozenge 1 Each MM TID PRN Lipitor (Atorvastatin Calcium) 80 Mg Tablet 1 Tab PO DAILY Norvasc (Amlodipine Besylate) 10 Mg Tablet 10 Mg PO DAILY Pertinent Labs/Test Laboratory Tests Test 03/03/21 10:40 03/03/21 11:10 03/03/21 13:35 03/03/21 14:10 White Blood Count 12.9 x10^3/uL (4.0-11.0) Red Blood Count 2.72 x10^6/uL (3.50-5.40) Hemoglobin 7.7 g/dL (12.0-15.5) Hematocrit 23.7 % (36.0-47.0) Mean Corpuscular Volume 87 fL (79-100) Mean Corpuscular Hemoglobin 28 pg (25-35) Mean Corpuscular Hemoglobin Concent 32 g/dL (31-37) Red Cell Distribution Width 16.6 % (11.5-14.5) Platelet Count 547 x10^3/uL (140-400) Neutrophils (%) (Auto) 83 % (31-73) Lymphocytes (%) (Auto) 13 % (24-48) Monocytes (%) (Auto) 3 % (0-9) Eosinophils (%) (Auto) 0 % (0-3) Basophils (%) (Auto) 0 % (0-3) Neutrophils # (Auto) 10.7 x10^3/uL (1.8-7.7) Lymphocytes # (Auto) 1.7 x10^3/uL (1.0-4.8) Monocytes # (Auto) 0.4 x10^3/uL (0.0-1.1) Eosinophils # (Auto) 0.0 x10^3/uL (0.0-0.7) Basophils # (Auto) 0.1 x10^3/uL (0.0-0.2) Sodium Level 135 mmol/L (136-145) Potassium Level 4.9 mmol/L (3.5-5.1) Chloride Level 95 mmol/L (98-107) Carbon Dioxide Level 16 mmol/L (21-32) Anion Gap 24 (6-14) Blood Urea Nitrogen 116 mg/dL (7-20) Creatinine 4.7 mg/dL (0.6-1.0) Estimated GFR (Cockcroft-Gault) 11.4 Glucose Level 271 mg/dL (70-99) Lactic Acid Level 3.9 mmol/L (0.4-2.0) 2.8 mmol/L (0.4-2.0) Calcium Level 8.3 mg/dL (8.5-10.1) Iron Level 17 ug/dL (50-170) Total Iron Binding Capacity 216 ug/dL (250-450) Iron Saturation 8 % (15-34) Total Bilirubin 0.7 mg/dL (0.2-1.0) Direct Bilirubin 0.4 mg/dL (0.0-0.2) Aspartate Amino Transf (AST/SGOT) 204 U/L (15-37) Alanine Aminotransferase (ALT/SGPT) 159 U/L (14-59) Alkaline Phosphatase 99 U/L (46-116) Creatine Kinase 3340 U/L (26-192) Troponin I Quantitative 0.081 ng/mL (0.000-0.055) [id number]-Type Natriuretic Peptide 587 pg/mL (0-124) Total Protein 6.4 g/dL (6.4-8.2) Albumin 1.6 g/dL (3.4-5.0) Vitamin B12 Level 551 pg/mL (247-911) Thyroid Stimulating Hormone (TSH) 3.418 uIU/mL (0.358-3.74) Salicylates Level < 2.8 mg/dL (2.8-20.0) Salicylate Last Dose Date Unknown Salicylate Last Dose Time Unknown Acetaminophen Level < 2 mcg/ml (10-30) Acetaminophen Last Dose Date Unknown Acetaminophen Last Dose Time Unknown Acetone Level Neg (NEG) Coronavirus (COVID-19)(PCR) Negative (NEGATIVE) O2 Saturation 100 % (92-99) Arterial Blood pH 7.27 (7.35-7.45) Arterial Blood pCO2 at Patient Temp 33 mmHg (35-46) Arterial Blood pO2 at Patient Temp 249 mmHg (65-108) Arterial Blood HCO3 15 mmol/L (21-28) Arterial Blood Base Excess -11 mmol/L (-3-3) Oxyhemoglobin 98.3 % Methemoglobin 0.9 % (0.0-1.9) Carbon Monoxide, Quantitative 0.3 % (0.0-1.9) FiO2 100 Urine Collection Type U cath Urine Color Yellow Urine Clarity Turbid Urine pH 6.0 (<5.0-8.0) Urine Specific [place] 1.015 (1.000-1.030) Urine Protein 30 mg/dL (NEG-TRACE) Urine Glucose (UA) Negative mg/dL (NEG) Urine Ketones (Stick) Negative mg/dL (NEG) Urine Blood Large (NEG) Urine Nitrite Negative (NEG) Urine Bilirubin Negative (NEG) Urine Urobilinogen Dipstick 0.2 mg/dL (0.2 mg/dL) Urine Leukocyte Esterase Large (NEG) Urine RBC >40 /HPF (0-2) Urine WBC Tntc /HPF (0-4) Urine Squamous Epithelial Cells Few /LPF Urine Amorphous Sediment Present /HPF Urine Bacteria Many /HPF (0-FEW) Urine Hyaline Casts Many /HPF Urine Mucus Mod /LPF Test 03/03/21 17:10 03/03/21 19:55 03/03/21 21:50 03/03/21 22:41 Troponin I Quantitative 0.089 ng/mL (0.000-0.055) Hemoglobin 7.1 g/dL (12.0-15.5) Prothrombin Time 17.4 SEC (11.7-14.0) Prothromb Time International Ratio 1.5 (0.8-1.1) Activated Partial Thromboplast Time 38 SEC (24-38) Fibrinogen 842 mg/dL (200-440) D-Dimer (Salma) 14.05 ug/mlFEU (0.00-0.50) Procalcitonin 20.10 ng/mL (0.00-0.10) Stool Occult Blood Positive (NEG) Glucose (Fingerstick) 48 mg/dL (70-99) Test 03/03/21 22:57 03/04/21 04:30 03/04/21 04:36 03/04/21 04:45 Glucose (Fingerstick) 134 mg/dL (70-99) 188 mg/dL (70-99) White Blood Count 15.0 x10^3/uL (4.0-11.0) Red Blood Count 2.00 x10^6/uL (3.50-5.40) Hemoglobin 5.5 g/dL (12.0-15.5) Hematocrit 20.1 % (36.0-47.0) Mean Corpuscular Volume 101 fL (79-100) Mean Corpuscular Hemoglobin 28 pg (25-35) Mean Corpuscular Hemoglobin Concent 27 g/dL (31-37) Red Cell Distribution Width 17.9 % (11.5-14.5) Platelet Count 473 x10^3/uL (140-400) Neutrophils (%) (Auto) 82 % (31-73) Lymphocytes (%) (Auto) 15 % (24-48) Monocytes (%) (Auto) 3 % (0-9) Eosinophils (%) (Auto) 0 % (0-3) Basophils (%) (Auto) 0 % (0-3) Neutrophils # (Auto) 12.3 x10^3/uL (1.8-7.7) Lymphocytes # (Auto) 2.2 x10^3/uL (1.0-4.8) Monocytes # (Auto) 0.4 x10^3/uL (0.0-1.1) Eosinophils # (Auto) 0.0 x10^3/uL (0.0-0.7) Basophils # (Auto) 0.0 x10^3/uL (0.0-0.2) Prothrombin Time 22.5 SEC (11.7-14.0) Prothromb Time International Ratio 2.0 (0.8-1.1) Activated Partial Thromboplast Time 47 SEC (24-38) Creatine Kinase 2793 U/L (26-192) O2 Saturation 96 % (92-99) Arterial Blood pH 6.92 (7.35-7.45) Arterial Blood pCO2 at Patient Temp 24 mmHg (35-46) Arterial Blood pO2 at Patient Temp 119 mmHg (65-108) Arterial Blood HCO3 5 mmol/L (21-28) Arterial Blood Base Excess -26 mmol/L (-3-3) FiO2 40 Test 03/04/21 05:30 03/04/21 06:51 03/04/21 07:40 03/04/21 11:00 Sodium Level 138 mmol/L (136-145) 143 mmol/L (136-145) Potassium Level 8.7 mmol/L (3.5-5.1) 6.0 mmol/L (3.5-5.1) Chloride Level 101 mmol/L (98-107) 103 mmol/L (98-107) Carbon Dioxide Level 6 mmol/L (21-32) 10 mmol/L (21-32) Anion Gap 31 (6-14) 30 (6-14) Blood Urea Nitrogen 121 mg/dL (7-20) 94 mg/dL (7-20) Creatinine 5.2 mg/dL (0.6-1.0) 3.8 mg/dL (0.6-1.0) Estimated GFR (Cockcroft-Gault) 10.1 14.5 BUN/Creatinine Ratio 23 (6-20) Glucose Level 127 mg/dL (70-99) 95 mg/dL (70-99) Calcium Level 7.6 mg/dL (8.5-10.1) 7.1 mg/dL (8.5-10.1) Total Bilirubin 1.3 mg/dL (0.2-1.0) Aspartate Amino Transf (AST/SGOT) 4358 U/L (15-37) Alanine Aminotransferase (ALT/SGPT) 2494 U/L (14-59) Alkaline Phosphatase 98 U/L (46-116) Total Protein 5.6 g/dL (6.4-8.2) Albumin 1.1 g/dL (3.4-5.0) Albumin/Globulin Ratio 0.2 (1.0-1.7) Glucose (Fingerstick) 85 mg/dL (70-99) O2 Saturation 95 % (92-99) Arterial Blood pH 7.10 (7.35-7.45) Arterial Blood pCO2 at Patient Temp 22 mmHg (35-46) Arterial Blood pO2 at Patient Temp 107 mmHg (65-108) Arterial Blood HCO3 7 mmol/L (21-28) Arterial Blood Base Excess -21 mmol/L (-3-3) FiO2 40%+% White Blood Count 13.6 x10^3/uL (4.0-11.0) Red Blood Count 2.62 x10^6/uL (3.50-5.40) Hemoglobin 7.1 g/dL (12.0-15.5) Hematocrit 23.3 % (36.0-47.0) Mean Corpuscular Volume 89 fL (79-100) Mean Corpuscular Hemoglobin 27 pg (25-35) Mean Corpuscular Hemoglobin Concent 31 g/dL (31-37) Red Cell Distribution Width 17.8 % (11.5-14.5) Platelet Count 370 x10^3/uL (140-400) Neutrophils (%) (Auto) 88 % (31-73) Lymphocytes (%) (Auto) 8 % (24-48) Monocytes (%) (Auto) 3 % (0-9) Eosinophils (%) (Auto) 0 % (0-3) Basophils (%) (Auto) 0 % (0-3) Neutrophils # (Auto) 12.0 x10^3/uL (1.8-7.7) Lymphocytes # (Auto) 1.1 x10^3/uL (1.0-4.8) Monocytes # (Auto) 0.4 x10^3/uL (0.0-1.1) Eosinophils # (Auto) 0.0 x10^3/uL (0.0-0.7) Basophils # (Auto) 0.1 x10^3/uL (0.0-0.2) Segmented Neutrophils % 66 % (35-66) Band Neutrophils % 11 % (0-9) Lymphocytes % 12 % (24-48) Monocytes % 4 % (0-10) Metamyelocytes % 5 % (0-0) Myelocytes % 2 % (0-0) Dohle Bodies Mod Platelet Estimate Adequate (ADEQUATE) Large Platelets Occ Anisocytosis Slight Phosphorus Level 11.4 mg/dL (2.6-4.7) Magnesium Level 2.6 mg/dL (1.8-2.4) Test 03/04/21 16:00 03/04/21 17:07 03/04/21 17:10 03/04/21 17:40 O2 Saturation 95 % (92-99) Arterial Blood pH 7.19 (7.35-7.45) Arterial Blood pH (Temp corrected) 7.23 Arterial Blood pCO2 at Patient Temp 26 mmHg (35-46) Arterial Blood pCO2 (Temp correct) 24 mmHg Arterial Blood pO2 at Patient Temp 94 mmHg (65-108) Arterial Blood pO2 (Temp corrected) 81 mmHg Arterial Blood HCO3 10 mmol/L (21-28) Arterial Blood Base Excess -17 mmol/L (-3-3) FiO2 40%+5 Glucose (Fingerstick) 45 mg/dL (70-99) 133 mg/dL (70-99) White Blood Count 11.1 x10^3/uL (4.0-11.0) Red Blood Count 2.47 x10^6/uL (3.50-5.40) Hemoglobin 6.8 g/dL (12.0-15.5) Hematocrit 22.1 % (36.0-47.0) Mean Corpuscular Volume 89 fL (79-100) Mean Corpuscular Hemoglobin 27 pg (25-35) Mean Corpuscular Hemoglobin Concent 31 g/dL (31-37) Red Cell Distribution Width 18.5 % (11.5-14.5) Platelet Count 365 x10^3/uL (140-400) Neutrophils (%) (Auto) 84 % (31-73) Lymphocytes (%) (Auto) 11 % (24-48) Monocytes (%) (Auto) 3 % (0-9) Eosinophils (%) (Auto) 1 % (0-3) Basophils (%) (Auto) 0 % (0-3) Neutrophils # (Auto) 9.3 x10^3/uL (1.8-7.7) Lymphocytes # (Auto) 1.3 x10^3/uL (1.0-4.8) Monocytes # (Auto) 0.4 x10^3/uL (0.0-1.1) Eosinophils # (Auto) 0.1 x10^3/uL (0.0-0.7) Basophils # (Auto) 0.0 x10^3/uL (0.0-0.2) Sodium Level 139 mmol/L (136-145) Potassium Level 5.9 mmol/L (3.5-5.1) Chloride Level 100 mmol/L (98-107) Carbon Dioxide Level 13 mmol/L (21-32) Anion Gap 26 (6-14) Blood Urea Nitrogen 54 mg/dL (7-20) Creatinine 2.5 mg/dL (0.6-1.0) Estimated GFR (Cockcroft-Gault) 23.5 Glucose Level 116 mg/dL (70-99) Calcium Level 7.2 mg/dL (8.5-10.1) Phosphorus Level 8.8 mg/dL (2.6-4.7) Magnesium Level 2.5 mg/dL (1.8-2.4) Laboratory Tests Test 03/03/21 21:50 03/03/21 22:41 03/03/21 22:57 03/04/21 04:30 Stool Occult Blood Positive (NEG) Glucose (Fingerstick) 48 mg/dL (70-99) 134 mg/dL (70-99) White Blood Count 15.0 x10^3/uL (4.0-11.0) Red Blood Count 2.00 x10^6/uL (3.50-5.40) Hemoglobin 5.5 g/dL (12.0-15.5) Hematocrit 20.1 % (36.0-47.0) Mean Corpuscular Volume 101 fL (79-100) Mean Corpuscular Hemoglobin 28 pg (25-35) Mean Corpuscular Hemoglobin Concent 27 g/dL (31-37) Red Cell Distribution Width 17.9 % (11.5-14.5) Platelet Count 473 x10^3/uL (140-400) Neutrophils (%) (Auto) 82 % (31-73) Lymphocytes (%) (Auto) 15 % (24-48) Monocytes (%) (Auto) 3 % (0-9) Eosinophils (%) (Auto) 0 % (0-3) Basophils (%) (Auto) 0 % (0-3) Neutrophils # (Auto) 12.3 x10^3/uL (1.8-7.7) Lymphocytes # (Auto) 2.2 x10^3/uL (1.0-4.8) Monocytes # (Auto) 0.4 x10^3/uL (0.0-1.1) Eosinophils # (Auto) 0.0 x10^3/uL (0.0-0.7) Basophils # (Auto) 0.0 x10^3/uL (0.0-0.2) Prothrombin Time 22.5 SEC (11.7-14.0) Prothromb Time International Ratio 2.0 (0.8-1.1) Activated Partial Thromboplast Time 47 SEC (24-38) Creatine Kinase 2793 U/L (26-192) Test 03/04/21 04:36 03/04/21 04:45 03/04/21 05:30 03/04/21 06:51 O2 Saturation 96 % (92-99) Arterial Blood pH 6.92 (7.35-7.45) Arterial Blood pCO2 at Patient Temp 24 mmHg (35-46) Arterial Blood pO2 at Patient Temp 119 mmHg (65-108) Arterial Blood HCO3 5 mmol/L (21-28) Arterial Blood Base Excess -26 mmol/L (-3-3) FiO2 40 Glucose (Fingerstick) 188 mg/dL (70-99) 85 mg/dL (70-99) Sodium Level 138 mmol/L (136-145) Potassium Level 8.7 mmol/L (3.5-5.1) Chloride Level 101 mmol/L (98-107) Carbon Dioxide Level 6 mmol/L (21-32) Anion Gap 31 (6-14) Blood Urea Nitrogen 121 mg/dL (7-20) Creatinine 5.2 mg/dL (0.6-1.0) Estimated GFR (Cockcroft-Gault) 10.1 BUN/Creatinine Ratio 23 (6-20) Glucose Level 127 mg/dL (70-99) Calcium Level 7.6 mg/dL (8.5-10.1) Total Bilirubin 1.3 mg/dL (0.2-1.0) Aspartate Amino Transf (AST/SGOT) 4358 U/L (15-37) Alanine Aminotransferase (ALT/SGPT) 2494 U/L (14-59) Alkaline Phosphatase 98 U/L (46-116) Total Protein 5.6 g/dL (6.4-8.2) Albumin 1.1 g/dL (3.4-5.0) Albumin/Globulin Ratio 0.2 (1.0-1.7) Test 03/04/21 07:40 6/7/21 11:00 03/04/21 16:00 03/04/21 17:07 O2 Saturation 95 % (92-99) 95 % (92-99) Arterial Blood pH 7.10 (7.35-7.45) 7.19 (7.35-7.45) Arterial Blood pCO2 at Patient Temp 22 mmHg (35-46) 26 mmHg (35-46) Arterial Blood pO2 at Patient Temp 107 mmHg (65-108) 94 mmHg (65-108) Arterial Blood HCO3 7 mmol/L (21-28) 10 mmol/L (21-28) Arterial Blood Base Excess -21 mmol/L (-3-3) -17 mmol/L (-3-3) FiO2 40%+% 40%+5 White Blood Count 13.6 x10^3/uL (4.0-11.0) Red Blood Count 2.62 x10^6/uL (3.50-5.40) Hemoglobin 7.1 g/dL (12.0-15.5) Hematocrit 23.3 % (36.0-47.0) Mean Corpuscular Volume 89 fL (79-100) Mean Corpuscular Hemoglobin 27 pg (25-35) Mean Corpuscular Hemoglobin Concent 31 g/dL (31-37) Red Cell Distribution Width 17.8 % (11.5-14.5) Platelet Count 370 x10^3/uL (140-400) Neutrophils (%) (Auto) 88 % (31-73) Lymphocytes (%) (Auto) 8 % (24-48) Monocytes (%) (Auto) 3 % (0-9) Eosinophils (%) (Auto) 0 % (0-3) Basophils (%) (Auto) 0 % (0-3) Neutrophils # (Auto) 12.0 x10^3/uL (1.8-7.7) Lymphocytes # (Auto) 1.1 x10^3/uL (1.0-4.8) Monocytes # (Auto) 0.4 x10^3/uL (0.0-1.1) Eosinophils # (Auto) 0.0 x10^3/uL (0.0-0.7) Basophils # (Auto) 0.1 x10^3/uL (0.0-0.2) Segmented Neutrophils % 66 % (35-66) Band Neutrophils % 11 % (0-9) Lymphocytes % 12 % (24-48) Monocytes % 4 % (0-10) Metamyelocytes % 5 % (0-0) Myelocytes % 2 % (0-0) Dohle Bodies Mod Platelet Estimate Adequate (ADEQUATE) Large Platelets Occ Anisocytosis Slight Sodium Level 143 mmol/L (136-145) Potassium Level 6.0 mmol/L (3.5-5.1) Chloride Level 103 mmol/L (98-107) Carbon Dioxide Level 10 mmol/L (21-32) Anion Gap 30 (6-14) Blood Urea Nitrogen 94 mg/dL (7-20) Creatinine 3.8 mg/dL (0.6-1.0) Estimated GFR (Cockcroft-Gault) 14.5 Glucose Level 95 mg/dL (70-99) Calcium Level 7.1 mg/dL (8.5-10.1) Phosphorus Level 11.4 mg/dL (2.6-4.7) Magnesium Level 2.6 mg/dL (1.8-2.4) Arterial Blood pH (Temp corrected) 7.23 Arterial Blood pCO2 (Temp correct) 24 mmHg Arterial Blood pO2 (Temp corrected) 81 mmHg Glucose (Fingerstick) 45 mg/dL (70-99) Test 03/04/21 17:10 03/04/21 17:40 Glucose (Fingerstick) 133 mg/dL (70-99) White Blood Count 11.1 x10^3/uL (4.0-11.0) Red Blood Count 2.47 x10^6/uL (3.50-5.40) Hemoglobin 6.8 g/dL (12.0-15.5) Hematocrit 22.1 % (36.0-47.0) Mean Corpuscular Volume 89 fL (79-100) Mean Corpuscular Hemoglobin 27 pg (25-35) Mean Corpuscular Hemoglobin Concent 31 g/dL (31-37) Red Cell Distribution Width 18.5 % (11.5-14.5) Platelet Count 365 x10^3/uL (140-400) Neutrophils (%) (Auto) 84 % (31-73) Lymphocytes (%) (Auto) 11 % (24-48) Monocytes (%) (Auto) 3 % (0-9) Eosinophils (%) (Auto) 1 % (0-3) Basophils (%) (Auto) 0 % (0-3) Neutrophils # (Auto) 9.3 x10^3/uL (1.8-7.7) Lymphocytes # (Auto) 1.3 x10^3/uL (1.0-4.8) Monocytes # (Auto) 0.4 x10^3/uL (0.0-1.1) Eosinophils # (Auto) 0.1 x10^3/uL (0.0-0.7) Basophils # (Auto) 0.0 x10^3/uL (0.0-0.2) Sodium Level 139 mmol/L (136-145) Potassium Level 5.9 mmol/L (3.5-5.1) Chloride Level 100 mmol/L (98-107) Carbon Dioxide Level 13 mmol/L (21-32) Anion Gap 26 (6-14) Blood Urea Nitrogen 54 mg/dL (7-20) Creatinine 2.5 mg/dL (0.6-1.0) Estimated GFR (Cockcroft-Gault) 23.5 Glucose Level 116 mg/dL (70-99) Calcium Level 7.2 mg/dL (8.5-10.1) Phosphorus Level 8.8 mg/dL (2.6-4.7) Magnesium Level 2.5 mg/dL (1.8-2.4) LAST VITALS Vital Signs Date Time Temp Pulse Resp B/P (MAP) Pulse Ox O2 Delivery O2 Flow Rate FiO2 03/04/21 19:35 Ventilator 03/04/21 19:15 93.9 110 19 100 93.9 CLAUDETTE ARMSTRONG CRNA Mar 04, 2021 20:02
--- NOTE | 2021-03-04 21:00 | NUR ---
Blood pressures decreasing, call placed to Dr Bhakta. Orders received for jacy-synephrine gtt if needed.
--- NOTE | 2021-03-04 22:15 | NUR ---
Patient's TDC started to draw air into the access line of CRRT despite no repositioning of the patient. TDC adjusted as well and patient's head position without any change. Treatment stopped at 2154. LA Napoles from [facility] notified at 2214.
--- NOTE | 2021-03-04 23:42 | NUR ---
Witnessed cardiac arrest-refer to code blue sheet documentation. Patient's sister, Betsy Miles, notified. Carlotta Lancaster and Livia notified. Dr Garza notified by Yesika Villa RN.
[2021-03-05] VITALS (7 sets, daily range): BP systolic 50–103; BP diastolic 30–67
[2021-03-05] MEDS ORDERED: SODIUM BICARB ADULT 8.4% 50 MEQ/50 ML DISP.SYRIN. ONE
[2021-03-05] MEDS ORDERED: EPINEPHrine SYRINGE 1 MG/10 ML SYRINGE ONE
[2021-03-05 00:07] LABS: BASO # 0.1 x10^3/uL (0.0-0.2); BASO % 1 % (0-3); EOS # 0.1 x10^3/uL (0.0-0.7); EOS % 1 % (0-3); HEMATOCRIT 21.2 % (36.0-47.0); LYMPH % 39 % (24-48); MEAN CORPUSCULAR HEMOGLOBIN 27 pg (25-35); MEAN CORPUSCULAR HGB CONC 30 g/dL (31-37); MEAN CORPUSCULAR VOLUME 92 fL (79-100); MONO # 0.2 x10^3/uL (0.0-1.1); MONO % 2 % (0-9); NEUT # 7.4 x10^3/uL (1.8-7.7); NEUT % 58 % (31-73); PLATELET COUNT 111 x10^3/uL (140-400); RED BLOOD COUNT 2.31 x10^6/uL (3.50-5.40); RED CELL DISTRIBUTION WIDTH 17.9 % (11.5-14.5); WHITE BLOOD COUNT 12.8 x10^3/uL (4.0-11.0)
[2021-03-05 00:09] LABS: HEMOGLOBIN 6.3 g/dL (12.0-15.5)
[2021-03-05 00:16] LABS: PROTHROMBIN TIME PATIENT 46.2 SEC (11.7-14.0)
[2021-03-05 00:19] LABS: CREATININE 2.3 mg/dL (0.6-1.0); GFR 25.9; MAGNESIUM 2.7 mg/dL (1.8-2.4)
[2021-03-05 00:22] LABS: CALCIUM 14.2 mg/dL (8.5-10.1); POTASSIUM 9.8 mmol/L (3.5-5.1)
[2021-03-05] MEDS: NOREPINEPHRINE VIAL 8 MG in IV DEXTROSE 5% 250 ML IV PRN (00:30)
--- NOTE | 2021-03-05 01:08 | CONS ---
DATE OF CONSULTATION: 03/04/2021 ATTENDING PHYSICIAN: Delroy Wallace MD CONSULTING PHYSICIAN: Socorro Agudelo MD HISTORY OF PRESENT ILLNESS: The patient is seen in pulmonary consultation at the request of Dr. Wallace for acute hypoxemic respiratory failure; multiorgan failure; initial arterial blood gas revealing a pH of 7.27, PaCO2 of 33, pO2 of 249 on 100% nonrebreather. The patient is a 61-year-old that resides at a [facility] with previous history of previous CVA, aphasia, status post PEG, presented with hypoxemia, cough, mental status change. The patient deteriorated while she was here. She had multiorgan failure. Had fever, leukocytosis, lactic acidosis. Repeat arterial blood gas early this morning revealed a pH of 6.92, PaCO2 of 24, pO2 of 119 on 40% FIO2. The patient was intubated. She is currently undergoing CRRT. She has been seen in consult by Infectious Disease service, is on multiple antibiotics including daptomycin and cefepime. I was asked to manage her vent. Latest arterial blood gas revealed a pH of 7.10, PaCO2 of 22, pO2 of 107, bicarb of 7. The patient has been seen by Nephrology. She is currently on CRRT. Chest x-ray was reviewed. There is pulmonary edema along with retrocardiac opacity. PAST MEDICAL HISTORY: Otherwise remarkable for multiple previous CVA. The patient resides at a [facility]. She has had previous PEG. There is a history of hypertension, hyperlipidemia, diabetes. SOCIAL HISTORY: Resides at a [facility]. CURRENT MEDICATIONS: List was reviewed. REVIEW OF SYSTEMS: Unobtainable secondary to the patient's condition. PHYSICAL EXAMINATION: GENERAL: The patient was on multiple pressors, IV antibiotics, undergoing CRRT. CURRENT VITAL SIGNS: Revealed blood pressure was 106/80, temperature is 96.1. She had a T-max yesterday of 101.1. HEENT: Eyes: The sclerae were anicteric. Orally placed endotracheal tube. LUNGS: Anteriorly were coarse. CARDIOVASCULAR: Regular rate and rhythm with S1, S2, no S3. ABDOMEN: Soft. PEG in place. EXTREMITIES: No clubbing, cyanosis. Some edema. 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 LABORATORY DATA: Reviewed. White count was elevated. Hemoglobin and hematocrit noted. Electrolytes were noted. BUN was elevated, creatinine was elevated. Potassium initially 8.7, now 6.0. Lactic acid level was elevated. Calcium was low. AST and ALT are elevated. Albumin was low. Serology for SARS-CoV-2 negative. Toxicology for salicylates and acetaminophen were normal. She had a significant anemia of 5.5 ____ of 20, status post transfusion. IMPRESSION: 1. Acute hypoxemic respiratory failure, multifactorial. 2. Severe metabolic acidosis. 3. Multiorgan failure. 4. Septic shock. 5. Leukocytosis. 6. Fever. 7. Metabolic toxic encephalopathy. 8. History of cerebrovascular accident. 9. Acute blood loss anemia. 10. Acute renal failure. 11. Acute liver failure. 12. Dysphagia, status post percutaneous endoscopic gastrostomy. 13. Neurogenic bladder with chronic Uriostegui. 14. Coagulopathy. 15. Acute rhabdomyolysis. PLAN: 1. We will continue support with mechanical ventilation. 2. The patient undergoing CRRT. 3. Transfuse to maintain hemoglobin above 7. 4. Monitor labs. 5. Empiric antibiotics. 6. Follow Cardiology input. 7. Follow Nephrology input. Overall, prognosis is poor. We will continue current support. Total cumulative critical care time of 45 minutes reviewing current information, examining the patient, reviewing data or chest x-ray, formulating an impression and a plan. KATHARINE/ALBINO/HÉCTOR DR: KATHARINE/joseph TID: [id number]
[2021-03-05] MEDS ORDERED: CALCIUM CHLORIDE 1,000 MG/10 ML DISP.SYRIN ONE ×3 (02:03→02:05)
--- NOTE | 2021-03-05 03:00 | NUR ---
ROSC achieved at 2352, Epinephrine gtt started at 0.3mcg/kg/min. Family arrived at approx 0025 and remained at bedside. Blood pressure began to decline despite Levophed, Vasopressin, and Epinephrine gtt. LA Napoles notified Dr Garza at 0120 of BP 60/44. Dr Garza made decision to not restart CRRT, family informed of decision. Blood pressures continued to decline, and at 0152 cardiac arrest was again witnessed, see code blue sheet for documentation. Despite resuscitation efforts, time of declared by Dr Epps at 0213, family at bedside. reported to [facility], reference number: [id number]
--- NOTE | 2021-03-05 04:55 | PDOC5 ---
CODE REPORT CODE REPORT Called to the ICU for CODE BLUE. Patient is currently in renal failure with sepsis. Patient bradycardia down into a PEA rhythm. Prior to my arrival patient received CPR and epinephrine. Upon my arrival patient is in asystole. CPR was continued and patient was given calcium, bicarbonate, epinephrine. Multiple rounds of compressions were done and ROSC was obtained. Recommended starting epinephrine drip and getting an EKG. Patient is due for repeat labs. Further care per primary team. BELEN MELENDREZ MD Mar 05, 2021 04:55
--- NOTE | 2021-03-05 04:58 | PDOC5 ---
CODE REPORT CODE REPORT Called to the ICU for a CODE BLUE. This is the second CODE BLUE on this patient this evening. Repeat labs after last CODE BLUE showed a significantly elevated potassium. They attempted to put the patient back on CRRT, however patient did not tolerate this and had significant hypotension and they had to stop the CRRT. Patient was maxed out on Levophed, epinephrine, phenylephrine. Upon my arrival patient was in PEA arrest. She was given epinephrine, bicarb, calcium. She did have an episode of ventricular fibrillation and was shocked x1. I have discussed with the family that given patient does not tolerate CRRT, her significant hyperkalemia, and her sepsis it is unlikely that even if we were able to obtain ROSC patient would survive. Family states understanding. Several sisters are at bedside. They ask at this time that we stop. Time of was called at 0213. At time of pupils were fixed, patient did not have a carotid or femoral pulse, patient had no heart sounds, patient did not have any spontaneous breathing. BELEN MELENDREZ MD Mar 05, 2021 04:58
[2021-03-05] MEDS ORDERED: VANCOMYCIN RANDOM LEVEL. MC ONE (05:00)
[2021-03-05] MEDS ORDERED: PANTOPRAZOLE IV PUSH 40 MG VIAL. IVP SCH (07:30)
--- NOTE | 2021-03-06 08:51 | PDOC3 ---
Discharge Summary Visit Information Date of Admission: Mar 03, 2021 Date of Discharge: Mar 05, 2021 Final Diagnosis Problems Medical Problems: (1) Acute respiratory failure with hypoxia Status: Acute (2) Multiorgan failure Status: Acute (3) Person under investigation for COVID-19 Status: Acute (4) Pneumonia Status: Acute (5) Rhabdomyolysis Status: Acute Brief Hospital Course Allergies Allergies Coded Allergies Type Severity Reaction Last Updated Verified Penicillins Allergy Intermediate RASH 03/03/21 Yes Lab Results Laboratory Tests Test 03/04/21 11:00 03/04/21 16:00 03/04/21 17:07 03/04/21 17:10 White Blood Count 13.6 x10^3/uL (4.0-11.0) Red Blood Count 2.62 x10^6/uL (3.50-5.40) Hemoglobin 7.1 g/dL (12.0-15.5) Hematocrit 23.3 % (36.0-47.0) Mean Corpuscular Volume 89 fL (79-100) Mean Corpuscular Hemoglobin 27 pg (25-35) Mean Corpuscular Hemoglobin Concent 31 g/dL (31-37) Red Cell Distribution Width 17.8 % (11.5-14.5) Platelet Count 370 x10^3/uL (140-400) Neutrophils (%) (Auto) 88 % (31-73) Lymphocytes (%) (Auto) 8 % (24-48) Monocytes (%) (Auto) 3 % (0-9) Eosinophils (%) (Auto) 0 % (0-3) Basophils (%) (Auto) 0 % (0-3) Neutrophils # (Auto) 12.0 x10^3/uL (1.8-7.7) Lymphocytes # (Auto) 1.1 x10^3/uL (1.0-4.8) Monocytes # (Auto) 0.4 x10^3/uL (0.0-1.1) Eosinophils # (Auto) 0.0 x10^3/uL (0.0-0.7) Basophils # (Auto) 0.1 x10^3/uL (0.0-0.2) Segmented Neutrophils % 66 % (35-66) Band Neutrophils % 11 % (0-9) Lymphocytes % 12 % (24-48) Monocytes % 4 % (0-10) Metamyelocytes % 5 % (0-0) Myelocytes % 2 % (0-0) Dohle Bodies Mod Platelet Estimate Adequate (ADEQUATE) Large Platelets Occ Anisocytosis Slight Sodium Level 143 mmol/L (136-145) Potassium Level 6.0 mmol/L (3.5-5.1) Chloride Level 103 mmol/L (98-107) Carbon Dioxide Level 10 mmol/L (21-32) Anion Gap 30 (6-14) Blood Urea Nitrogen 94 mg/dL (7-20) Creatinine 3.8 mg/dL (0.6-1.0) Estimated GFR (Cockcroft-Gault) 14.5 Glucose Level 95 mg/dL (70-99) Calcium Level 7.1 mg/dL (8.5-10.1) Phosphorus Level 11.4 mg/dL (2.6-4.7) Magnesium Level 2.6 mg/dL (1.8-2.4) O2 Saturation 95 % (92-99) Arterial Blood pH 7.19 (7.35-7.45) Arterial Blood pH (Temp corrected) 7.23 Arterial Blood pCO2 at Patient Temp 26 mmHg (35-46) Arterial Blood pCO2 (Temp correct) 24 mmHg Arterial Blood pO2 at Patient Temp 94 mmHg (65-108) Arterial Blood pO2 (Temp corrected) 81 mmHg Arterial Blood HCO3 10 mmol/L (21-28) Arterial Blood Base Excess -17 mmol/L (-3-3) FiO2 40%+5 Glucose (Fingerstick) 45 mg/dL (70-99) 133 mg/dL (70-99) Test 03/04/21 17:40 03/04/21 23:50 03/04/21 23:55 White Blood Count 11.1 x10^3/uL (4.0-11.0) 12.8 x10^3/uL (4.0-11.0) Red Blood Count 2.47 x10^6/uL (3.50-5.40) 2.31 x10^6/uL (3.50-5.40) Hemoglobin 6.8 g/dL (12.0-15.5) 6.3 g/dL (12.0-15.5) Hematocrit 22.1 % (36.0-47.0) 21.2 % (36.0-47.0) Mean Corpuscular Volume 89 fL (79-100) 92 fL (79-100) Mean Corpuscular Hemoglobin 27 pg (25-35) 27 pg (25-35) Mean Corpuscular Hemoglobin Concent 31 g/dL (31-37) 30 g/dL (31-37) Red Cell Distribution Width 18.5 % (11.5-14.5) 17.9 % (11.5-14.5) Platelet Count 365 x10^3/uL (140-400) 111 x10^3/uL (140-400) Neutrophils (%) (Auto) 84 % (31-73) 58 % (31-73) Lymphocytes (%) (Auto) 11 % (24-48) 39 % (24-48) Monocytes (%) (Auto) 3 % (0-9) 2 % (0-9) Eosinophils (%) (Auto) 1 % (0-3) 1 % (0-3) Basophils (%) (Auto) 0 % (0-3) 1 % (0-3) Neutrophils # (Auto) 9.3 x10^3/uL (1.8-7.7) 7.4 x10^3/uL (1.8-7.7) Lymphocytes # (Auto) 1.3 x10^3/uL (1.0-4.8) 5.0 x10^3/uL (1.0-4.8) Monocytes # (Auto) 0.4 x10^3/uL (0.0-1.1) 0.2 x10^3/uL (0.0-1.1) Eosinophils # (Auto) 0.1 x10^3/uL (0.0-0.7) 0.1 x10^3/uL (0.0-0.7) Basophils # (Auto) 0.0 x10^3/uL (0.0-0.2) 0.1 x10^3/uL (0.0-0.2) Sodium Level 139 mmol/L (136-145) 139 mmol/L (136-145) Potassium Level 5.9 mmol/L (3.5-5.1) 9.8 mmol/L (3.5-5.1) Chloride Level 100 mmol/L (98-107) 100 mmol/L (98-107) Carbon Dioxide Level 13 mmol/L (21-32) 13 mmol/L (21-32) Anion Gap 26 (6-14) 26 (6-14) Blood Urea Nitrogen 54 mg/dL (7-20) 44 mg/dL (7-20) Creatinine 2.5 mg/dL (0.6-1.0) 2.3 mg/dL (0.6-1.0) Estimated GFR (Cockcroft-Gault) 23.5 25.9 Glucose Level 116 mg/dL (70-99) 261 mg/dL (70-99) Calcium Level 7.2 mg/dL (8.5-10.1) 14.2 mg/dL (8.5-10.1) Phosphorus Level 8.8 mg/dL (2.6-4.7) Magnesium Level 2.5 mg/dL (1.8-2.4) 2.7 mg/dL (1.8-2.4) Glucose (Fingerstick) 251 mg/dL (70-99) Prothrombin Time 46.2 SEC (11.7-14.0) Prothromb Time International Ratio 4.9 (0.8-1.1) Activated Partial Thromboplast Time 27 SEC (24-38) Troponin I Quantitative 0.505 ng/mL (0.000-0.055) Brief Hospital Course Ms. Martinez is a 61 old female who presented with sepsis, gram-positive cocci bacteremia, multiorgan failure, acute hypoxemic respiratory failure, metabolic toxic encephalopathy. Consultation placed to neurology, GI, infectious disease, nephrology, and pulmonology. Patient was treated with IV antibiotics and CRRT. DENISE TEIXEIRA was called in the ED on the morning of 03/05/2021. ED attending responded and patient was found to be in PEA rhythm. Patient was coded appropriately but unfortunately did not survive. Time of was called at 0213. Discharge Information Condition at Discharge: / Disposition/Orders: Scheduled Amlodipine Besylate (Norvasc) 10 Mg Tablet, 10 MG PO DAILY, (Reported) Entered as Reported by: MARCI OSORIO on 04/18/17 193 Last Action: Reviewed on 03/03/21 1350 by BHAVANI AHUMADA Aspirin (Aspirin) 81 Mg Tab.chew, 1 TAB PO DAILY for stroke prevention, #90 Ref 3 (Reported) Entered as Reported by: BHAVANI AHUMADA on 03/03/211412 Last Action: New Order on 03/03/211412 by BHAVANI AHUMADA Atorvastatin Calcium (Lipitor) 80 Mg Tablet, 1 TAB PO DAILY, #30 Ref 5 (Reported) Entered as Reported by: MARCI OSORIO on 04/18/171938 Last Action: Reviewed on 03/03/211349 by BHAVANI AHUMADA Baclofen (Baclofen) 10 Mg Tablet, 1 TAB PO TID for muscle relaxer, #90 (Reported) Entered as Reported by: BHAVANI AHUMADA on 03/03/211412 Last Action: New Order on 03/03/211412 by BHAVANI AHUMADA Benzocaine/Menthol (Cepacol Sore Throat Lozenge) 1 Each Lozenge, 1 EACH MM TID PRN, (Reported) Entered as Reported by: MARCI OSORIO on 04/18/171938 Last Action: Reviewed on 03/03/211349 by BHAVANI AHUMADA Clopidogrel Bisulfate (Clopidogrel) 75 Mg Tablet, 1 TAB PO DAILY for stroke prevention, #30 Ref 5 (Reported) Entered as Reported by: BHAVANI AHUMADA on 03/03/211412 Last Action: New Order on 03/03/211412 by BHAVANI AHUMADA Ferrous Sulfate (Ferrous Sulfate) 325 Mg Tablet, 1 TAB PO DAILY for defiecience, #30 Ref 3 (Reported) Entered as Reported by: BHAVANI AHUMADA on 03/03/211412 Last Action: New Order on 03/03/211412 by BHAVANI AHUMADA Gabapentin (Gabapentin) 300 Mg Capsule, 300 MG PO TID for NEUROGENIC PAIN, (Reported) Entered as Reported by: BHAVANI AHUMADA on 03/03/211412 Last Action: New Order on 03/03/211412 by BHAVANI AHUMADA Gentamicin Sulfate (Gentamicin Sulfate) 30 Gm Oint...g., 1 KHANG TP BID for apply to sacral, and r and l b, #15 Ref 0 (Reported) apply to affected area(s) Entered as Reported by: BHAVANI AHUMADA on 03/03/211412 Last Action: New Order on 03/03/211412 by BHAVANI AHUMADA Hyoscyamine Sulfate (Anaspaz) 0.125 Mg Tab.rapdis, 0.125 MG PO Q4HRS W/A for ulcers, (Reported) Entered as Reported by: BHAVANI AHUMADA on 03/03/211350 Last Action: New Order on 03/03/211350 by BHAVANI AHUMADA Itraconazole (Itraconazole) 100 Mg Capsule, 200 MG PO DAILY for wounds for 7 Days, #14 (Reported) Entered as Reported by: BHAVANI AHUMADA on 03/03/211412 Last Action: New Order on 03/03/211412 by BHAVANI AHUMADA Lisinopril (Lisinopril) 40 Mg Tablet, 1 TAB PO DAILY for bp, #90 Ref 3 (Reported) Entered as Reported by: BHAVANI AHUMADA on 03/03/211412 Last Action: New Order on 03/03/211412 by BHAVANI AHUMADA Omeprazole (Omeprazole) 20 Mg Capsule.dr, 1 CAP PO DAILY for grd, #90 Ref 3 (Reported) Entered as Reported by: BHAVANI AHUMADA on 03/03/211412 Last Action: New Order on 03/03/211412 by BHAVANI AHUMADA Polyethylene Glycol 3350 (Miralax) 17 Gm Powd.pack, 1 PACKET PO DAILY for constipation for 2 Days, #2 Ref 0 (Reported) dissolve in water Entered as Reported by: BHAVANI AHUMADA on 03/03/211412 Last Action: New Order on 03/03/211412 by BHAVANI AHUMADA Discontinued Medications Aspirin (Aspirin) 325 Mg Tablet, 1 TAB PO DAILY, #30 Ref 5 (Reported) Entered as Reported by: MARCI OSORIO on 04/18/171938 Last Action: Discontinued on 03/03/211349 by BHAVANI AHUMADA Chlorthalidone (Chlorthalidone ) 25 Mg Tablet, 1 TAB PO DAILY, #30 Ref 5 (Reported) Entered as Reported by: MARCI OSORIO on 04/18/171938 Last Action: Discontinued on 03/03/211349 by BHAVANI AHUMADA Diphenhydramine Hcl (Benadryl) 25 Mg Capsule, 25 MG PO Q6HRS PRN for ITCHING, (Reported) Entered as Reported by: MARCI OSORIO on 04/18/171938 Last Action: Discontinued on 03/03/211349 by BHAVANI AHUMADA Docusate Sodium (Colace) 100 Mg Capsule, 1 CAP PO BID, #30 (Reported) Entered as Reported by: MARCI OSORIO on 04/18/171938 Last Action: Discontinued on 03/03/211349 by BHAVANI AHUMADA Ezetimibe (Zetia) 10 Mg Tablet, 1 TAB PO DAILY, #30 Ref 5 (Reported) Entered as Reported by: MARCI OSORIO on 04/18/171938 Last Action: Discontinued on 03/03/211349 by BHAVANI AHUMADA Gabapentin (Gabapentin ) 100 Mg Capsule, 100 MG PO Q8HRS, (Reported) Entered as Reported by: MARCI OSORIO on 04/18/171938 Last Action: Discontinued on 03/03/211349 by BHAVANI AHUMADA [Prinivil,Zestril] , 40 MG PO DAILY, (Reported) Entered as Reported by: MARCI OSORIO on 04/18/171938 Last Action: Discontinued on 03/03/211349 by BHAVANI AHUMADA Justicifation of Admission Dx: Justifications for Admission: Justification of Admission Dx: N/A ELVIRA GAGE MD Mar 06, 2021 08:51
== END 2021-03-05 02:13 | DRG 871 ==
LOC: ER 10:32 → 1 WEST ICU 11:49
PROVIDERS: ADMIT Family Medicine; ATTEND Family Medicine
PROC: 5A09357 Assistance with Respiratory Ventilation, Less than 24 Consecutive Hours, Continuous Positive Airway Pressure (ICD-10-PCS; principal; 2021-03-03)
PROC: 5A1945Z Respiratory Ventilation, 24-96 Consecutive Hours (ICD-10-PCS; 2021-03-03)
PROC: 0BH17EZ Insertion of Endotracheal Airway into Trachea, Via Natural or Artificial Opening (ICD-10-PCS; 2021-03-03)
PROC: 02HV33Z Insertion of Infusion Device into Superior Vena Cava, Percutaneous Approach (ICD-10-PCS; 2021-03-04)
PROC: B548ZZA Ultrasonography of Superior Vena Cava, Guidance (ICD-10-PCS; 2021-03-04)
PROC: 30233N1 Transfusion of Nonautologous Red Blood Cells into Peripheral Vein, Percutaneous Approach (ICD-10-PCS; 2021-03-04)
DX: A41.9 Sepsis, unspecified organism (principal); L89.154 Pressure ulcer of sacral region, stage 4; G92 Toxic encephalopathy; J18.9 Pneumonia, unspecified organism; J96.01 Acute respiratory failure with hypoxia; K72.00 Acute and subacute hepatic failure without coma; N17.0 Acute kidney failure with tubular necrosis; R65.21 Severe sepsis with septic shock; D62 Acute posthemorrhagic anemia; D68.9 Coagulation defect, unspecified; I69.351 Hemiplegia and hemiparesis following cerebral infarction affecting right dominant side; K92.2 Gastrointestinal hemorrhage, unspecified; M62.82 Rhabdomyolysis; E87.2 Acidosis; B96.89 Other specified bacterial agents as the cause of diseases classified elsewhere; D50.9 Iron deficiency anemia, unspecified; E11.51 Type 2 diabetes mellitus with diabetic peripheral angiopathy without gangrene; E78.5 Hyperlipidemia, unspecified; E87.5 Hyperkalemia; I10 Essential (primary) hypertension; N31.9 Neuromuscular dysfunction of bladder, unspecified; R13.19 Other dysphagia; Z20.822 Contact with and (suspected) exposure to COVID-19; Z79.82 Long term (current) use of aspirin; Z79.899 Other long term (current) drug therapy; Z82.49 Family history of ischemic heart disease and other diseases of the circulatory system; Z87.891 Personal history of nicotine dependence; Z93.1 Gastrostomy status; M19.90 Unspecified osteoarthritis, unspecified site; E66.9 Obesity, unspecified; Z88.0 Allergy status to penicillin; Z68.27 Body mass index [BMI] 27.0-27.9, adult
CPT/HCPCS: 31500; 36415; 36430; 36556; 36600; 51702; 70450; 71045; 76770; 76937; 80048; 80053; 80076; 80329; 81001; 82010; 82274; 82550; 82607; 82805; 82962; 83540; 83550; 83605; 83735; 83880; 84100; 84145; 84443; 84484; 85007; 85018; 85025; 85379; 85384; 85610; 85730; 86850; 86900; 86901; 86920; 87040; 87070; 87077; 87086; 87186; 87205; 94002; 94003; 94660; C1892; J0171; J0610; J0692; J0878; J1644; J2250; J3010; J3370; J3480; J3490; J7030; J7040; J7050; J7060; P9016; U0003; 99291-25; G0378; G0480